=== PATIENT | male | born 1950 | race Two or more races ===

== ENCOUNTER 2024-08-29 08:51 | Observation (INO) | payer MEDICARE, MEDICAID, SELFPAY ==
[2024-08-29] VITALS (11 sets, daily range): BP systolic 142–179; BP diastolic 50–81; PULSE 37–75; RESP 12–96; TEMP 36.1–36.6; O2SAT 93–100; BMI 20.7
--- NOTE | 2024-08-29 09:10 | EKG_ITS ---
[facility] (Formerly [facility]) Test Date: 2024-08-29 Pat Name: ABRAHAM ANN Department: Room: - Gender: Male Client Sales And Service Officer: : 1950 Requested By: Jeyson Riley Order Number: [id number] Reading MD: Jeyson Riley Measurements Intervals [place] Rate: 37 P: NC: QRS: 95 QRSD: 118 T: 34 QT: 504 QTc: 396 Interpretive Statements SINUS BRADYCARDIA WITH 2ND DEGREE AV BLOCK, MOBITZ TYPE II BORDERLINE RIGHT AXIS DEVIATION [QRS AXIS > 90] POSSIBLE INFERIOR MYOCARDIAL INFARCTION , PROBABLY OLD [30 ms Q WAVE IN II/aVF] Compared to ECG 05/16/2024 09:49:22 Myocardial infarct finding now present Sinus rhythm no longer present First degree AV block no longer present Right bundle-branch block no longer present Left posterior fascicular block no longer present T-wave abnormality no longer present Possible ischemia no longer present /store/S0/[id number]/ecg/[id number].pdf
--- NOTE | 2024-08-29 09:30 | PD.EDADULT ---
ED General RME/HPI General Chief complaint: General Adult/Misc Complain Stated complaint: WEAKNESS Time Seen by Provider: 08/29/24 09:06 Arrival date/time: 08/29/24 08:51 RME / HPI RME / HPI narrative: Patient i a 74 year old m alexy, hx ESRD on dialysis, rpeorts to ED BIBA from dialysis as staff stated he that during dialysis patient was severely bradycardic without symptoms, patient continues to have no current complaints. States he used to see cutting machine offbearer but has not seen in many years. States he is legally blind. Denies chest pain or shortness of breath. Denies fevers, chills, nausea,vomiting, diarrhea, constipation. Related Data Home Medications ?Medication ?Instructions ?Recorded ?Confirmed glipizide 10 mg tablet 10 mg PO BID ##180 10/30/17 01/17/21 midodrine 10 mg tablet 10 mg PO QID ##180 10/30/17 04/05/24 atorvastatin 10 mg tablet 10 mg PO HS 11/17/18 01/17/21 cholecalciferol (vitamin D3) 25 1,000 unit PO QDAY 11/17/18 01/17/21 mcg (1,000 unit) capsule (Vitamin D3) gabapentin 100 mg capsule 100 mg PO BID 08/06/19 04/05/24 sevelamer carbonate 800 mg tablet 1,600 mg PO TID 02/24/20 04/05/24 (Renvela) cetirizine 10 mg tablet 10 mg PO QDAY PRN Allergic Symptoms 01/17/21 01/17/21 hydroxyzine HCl 25 mg tablet 25 mg PO HSPRN PRN Itching 01/17/21 01/17/21 insulin detemir U-100 100 unit/mL See Rx Instructions .Route .COMPLEX 01/17/21 01/17/21 (3 mL) subcutaneous pen (Levemir FlexTouch U-100 Insulin) lactulose 10 gram/15 mL oral 20 ml PO TID 01/17/21 04/05/24 solution (Constulose) ondansetron HCl 4 mg tablet 4 mg PO BID PRN Nausea 01/17/21 01/17/21 pantoprazole 40 mg tablet,delayed 40 mg PO QDAY 01/17/21 01/17/21 release ropinirole 1 mg tablet 2 mg PO BID 01/17/21 04/05/24 semaglutide 0.25 mg or 0.5 mg (2 0.5 mg subcut QWEEK 01/17/21 01/17/21 mg/1.5 mL) subcutaneous pen injector ([place]) montelukast 10 mg tablet 10 mg PO DAILY 04/05/24 04/05/24 sitagliptin phosphate 50 mg tablet 50 mg PO DAILY 04/05/24 04/05/24 (Januvia) sitagliptin phosphate 50 mg tablet mg 04/05/24 (Sepuvia) Previous Rx's ?Medication ?Instructions ?Recorded clopidogrel 75 mg tablet (Plavix) 75 mg PO QDAY #30 tabs 01/19/21 Allergies Allergy/AdvReac Type Severity Reaction Status Date / Time diphenhydramine Allergy Mild ANXIETY Verified 08/29/24 09:13 Review of Systems Review of Systems Narrative Review of Systems: Gen: No fever, no chills, no weight loss EYES: No discharge, no visual changes, no pain HEENT: No ear pain, no congestion, no sore throat PULM: No shortness of breath, no cough, no congestion CV: No chest pain, no dyspnea on exertion, no palpitations GI: No nausea, no vomiting, no diarrhea, no pain, no constipation : No frequency, no urgency, no dysuria Musc/skel: No joint pain, no back pain Skin: No rash Psyc: No hallucinations, no depression Heme/Lymph: No easy bleeding or bruising tendencies Neuro: No weakness, no headache Past Medical History Past Medical History NEUROLOGIC: Negative Neurological Disorders CARDIAC: Positive Cardiac Disorders, Hypercholesterolemia, Hypertension and Hypotension; Negative Congestive Heart Failure RESPIRATORY: Positive Pneumonia (at 20 yrs ago); Negative Chronic Obstructive Pulmonary Disease (COPD) GASTROINTESTINAL: Positive Gastrointestinal Disorders and Gastroesophageal Reflux Disease; Negative Hepatitis GENITOURINARY: Positive Genitourinary Disorders, Renal Disease, Kidney Stones and Dialysis MUSCULOSKELETAL: Positive Musculoskeletal Disorders, Arthritis, Degenerative Disk Disease and Degenerative Joint Disease ENT: Positive Blind (right eye, left eye only can see 15%) and Deafness ([place] g[place].) ENDOCRINE: Positive Endocrine Disorders, Diabetes Mellitus Type 2 and Hypothyroidism; Negative Diabetes Mellitus Type 1 HEMATOLOGIC: Negative Blood Disorders PSYCHO/SOCIAL: Positive Anxiety OTHER HISTORY: Positive Hospitalization and Falls; Negative Autoimmune Disease, MRSA, Chicken Pox or Cancer Family History FAMILY HISTORY: Positive Family Cancer (dad colon ca) and Family Surgery; Negative Family Psychiatric Problems, Family Respiratory Disorders, Family Cardiac Disorders, Family Gastrointestinal Problems or Family Anesthesia Reaction Surgical History SURGICAL: Positive Amputation (left 5th toe) Social History SMOKING STATUS: Never smoker SUBSTANCE USE: does not use ED Exam Narrative Physical exam: GEN. APPEARANCE: The patient is alert awake oriented X-3 in mild distress, lying down comfortably, does not look ill/toxic. Patient has good eye contact. Patient is cooperative. VITALS: All vitals were reviewed and the pulse ox is 98% on room air which is normal according to my interpretation. HEENT: Normocephalic, atraumatic. Pupils are equal and reactive. Oral mucosa is moist. Patent Nares NECK: Supple, nontender, no thyromegaly, no meningismus, no JVD, no step offs CHEST: Dialysis access port left chest. Symmetrical, atraumatic, and with equal expansion , Nontender on palpation no deformity and no crepitus. CARDIOVASCULAR:Bradycardic in mid 30's LUNGS: Clear to auscultation bilaterally with symmetrical chest rise. No laboring tachypnea or wheezing. No intercostal subcostal retraction. No rales and no rhonchi. ABDOMEN: Soft, flat, nontender to palpation, no guarding or rebound tenderness. There are no abnormal masses palpated. Active and normal bowel sounds. EXTREMITIES: Nontender. No edema. No cyanosis. Patient is able to move all 4 extremities well, with full ROM and good CSM. SKIN: Warm and dry, no jaundice or rashes noted. MUSCULOSKELETAL: No lubar or midline bony tenderness. There is no CVA tenderness. No paraspinal muscle spasm or tenderness. NEURO: Patient is WORKMAN x 4, Cranial nerves II through XII grossly intact. There is no focal neurologic deficits noted. GCS is 15, PNS and CRYSTAL CUTTER appear grossly intact. PSYCHIATRIC: Patient is in normal mood and affect, cooperative, no SI or HI or hallucinations. Course Quality Measures none Orders Category Date Time Status COVID-19 Screening Questionnaire NOW Care 08/29/24 13:07 Active Credit Product Analyst Q4H START 00 Care 08/29/24 09:10 Active Decision to Admit X1 Care 08/29/24 13:07 Active EKG (ED ONLY) *Do not use* NOW Care 08/29/24 09:11 Completed EKG (ED Only) Stat Exams 08/29/24 09:10 Draft CBC Stat Lab 08/29/24 09:37 Completed Comprehensive Metabolic Panel Stat Lab 08/29/24 09:37 Completed Free T4 (Free Thyroxine) Stat Lab 08/29/24 09:37 Completed Magnesium Stat Lab 08/29/24 09:37 Completed Partial Thromboplastin Time Stat Lab 08/29/24 09:37 Completed Prothrombin Time with INR Stat Lab 08/29/24 09:37 Completed TSH [Thyroid Stimulating Hormone] Stat Lab 08/29/24 09:37 Completed Vital Signs Vital signs: Vital Signs Temperature 97.5 F 08/29/24 09:11 Pulse Rate 41 L 08/29/24 09:11 Respiratory Rate 16 08/29/24 09:11 Blood Pressure 143/56 H 08/29/24 09:11 Pulse Oximetry (%) 98 08/29/24 09:11 Oxygen Delivery Method Room Air 08/29/24 09:[address] [facility] Patient data External records reviewed:: [facility] previous records Clinical information provided by:: patient Social determinants that could affect healthcare access:: none Patient has the following chronic illnesses:: ESRD, diabetes, hypertension How is presenting disease/condition affected by chronic disease/condition?: uneffected by Evaluation data The following diagnostics were reviewed and interpreted by me:: lab results and EKG tracing(s) (moves in and out of bradycardia) Lab and/or radiology exams considered but not ordered:: none Interpretation Summary: see above Medications Medications considered but not ordered:: none Medication administrations:: Medication Administration History Acetaminophen (Acetaminophen 325 Mg Tablet) 650 mg PO Q6H PRN PRN Reason: Pain and Fever >101.5 Stop: 09/28/24 13:14 Atorvastatin Calcium (Atorvastatin Calcium 10 Mg Tablet) 10 mg PO HS FRAN Stop: 09/28/24 20:59 Dextrose (Dextrose 50%-Water Inj 50 Ml Syringe) 25 ml IV Q15MIN PRN PRN Reason: BG 50-70 responsive npo pt Stop: 09/28/24 13:19 Dextrose (Dextrose 50%-Water Inj 50 Ml Syringe) 50 ml IV Q15MIN PRN PRN Reason: BG <50 OR BG <70 & pt unresponsive Stop: 09/28/24 13:19 Glucagon (Glucagon Inj 1 Mg Vial) 1 mg IM Q15MIN PRN PRN Reason: BG <70, and no IV access Hydralazine HCl (Hydralazine Inj 20 Mg/Ml Vial) 10 mg IVP Q6H PRN PRN Reason: HTN SBP >180, DBP> 100 Stop: 09/28/24 13:29 Insulin Glargine (Insulin Glargine (Lantus) 5 Unit/0.05 Ml (Per 5 Units)) 55 unit SC BID FRAN Stop: 09/28/24 20:59 Insulin Human Lispro (Insulin Lispro (Admelog) 1 Unit/0.01 Ml Unit) 0 unit SC ACHS FRAN; Protocol Stop: 09/28/24 16:59 Ondansetron HCl (Ondansetron Inj 2 Mg/Ml Inj 2 Ml) 4 mg IV Q6H PRN; Protocol PRN Reason: NAUSEA OR VOMITING Stop: 09/28/24 13:14 Pantoprazole Sodium (Pantoprazole 40 Mg Tablet) 40 mg PO QDAY FRAN Stop: 09/29/24 08:59 Sennosides (Senna Tablet) 1 tab PO QDAY FRAN; Protocol Stop: 09/28/24 13:29 Sevelamer Carbonate (Sevelamer Carbonate 800 Mg Tablet) 800 mg PO TIDWM FRAN Stop: 09/28/24 17:29 none Consultations Consultation(s) initiated? (list below): Yes Consultation #1 (Physician, Specialty, Details): Consulted cutting machine offbearer Dr. Perez regarding the patients current status and results, agrees to consult on patients further care. Time: 11:22 Consultation #2 (Physician, Specialty, Details): Discussed with hospitalist Dr. Sanchez regarding the patients current status and results, agrees to admission Time: 11:44 Diagnosis Differential Diagnosis ED Complaint MDM: bradycardia. hypotyroidism, medical screening Most likely diagnosis given after review of the tests above:: mobitz 2, bradycardia, ESRD on dialysis Admission Indicated Admission indicated?: indicated Explain why admission is indicated or not indicated:: see above Admission Request Was there a request for admission?: Yes Admission Attestation Admission request attestation: Discussed case with [] from Hospitalist service regarding admission. Discussed patients ED course, exam findings, labs, and radiology results. The Hospitalist [agrees,declines] to accept the patient for admission. Disposition Plan Disposition Plan: Admit Medical Decision Making Differential Diagnosis Differential Diagnosis: bradycardia. hypotyroidism, medical screening Lab Data 08/29/24 09:37 08/29/24 09:37 Labs: Lab Results 08/29/24 Range/Units 09:37 WBC 6.5 (3.8-10.6) Thou/mm3 RBC 3.83 L (4.50-5.90) Miln/mm3 Hgb 11.5 L (13.5-16.0) g/dL Hct 35.5 L (41.0-53.0) % MCV 93 (80-100) fL MCH 30.0 (25.0-35.0) pg MCHC 32.4 (31.0-37.0) g/dl RDW Std Deviation 47.3 H (35.1-43.9) fL Plt Count 180 (140-440) Thou/mm3 Neut % (Auto) 50 (37-80) % Lymph % (Auto) 37 (10-50) % [place] % (Auto) 8 (0-12) % Eos % (Auto) 4 (0-10) % Baso % (Auto) 1 (0-2.5) % Neut # (Auto) 3.2 (1.8-7.7) Thou/mm3 Lymph # (Auto) 2.4 (1.0-4.8) Thou/mm3 [place] # (Auto) 0.5 (0.0-0.8) Thou/mm3 Eos # (Auto) 0.2 (0.0-0.5) Thou/mm3 Baso # (Auto) 0.0 (0.0-0.2) Thou/mm3 Immature Gran # (Auto) 0.03 H (0.00-0.00) Thou/mm3 Absolute Nucleated RBC 0.00 (0.00-0.00) Thou/mm3 Immature Gran % 1 H (0-0) % Nucleated RBC % 0 (0) /100 WBC PT 12.5 H (9.0-12.2) Seconds INR 1.2 (0.9-1.3) APTT > 139.0 H* (22.0-36.0) Seconds Sodium 137 (136-145) mMol/L Potassium 3.3 L (3.4-5.1) mMol/L Chloride 101 (98-107) mMol/L Carbon Dioxide 28.5 (20.0-31.0) mMol/L Anion Gap 8 (7-16) BUN 8 L (9-23) mg/dL Creatinine 2.4 H (0.6-1.3) mg/dL Estim Creat Clear Calc 22.3 L (>60) mL/min eGFR 28 L (60 - ) See Note BUN/Creatinine Ratio 3 L (12-20) Ratio Glucose 112 H (74-106) mg/dL Calculated Osmolality 273 L (275-295) Calcium 10.0 (8.3-10.6) mg/dL Corrected Calcium 10.0 (8.5-10.1) mg/dL Magnesium 2.0 (1.6-2.6) mg/dL Total Bilirubin 0.4 (0.3-1.2) mg/dL AST 27 (0-34) U/L ALT 42 (10-49) U/L Alkaline Phosphatase 181 H (46-116) U/L Total Protein 7.6 (5.7-8.2) gm/dL Albumin 4.5 (3.4-4.8) gm/dL Globulin 3.1 (2.3-3.5) gm/dL Albumin/Globulin Ratio 1.5 (1.2-2.2) TSH 14.65 H (0.55-4.78) uIU/mL Free T4 1.22 (0.89-1.76) ng/dL Discharge Plan Plan Patient Disposition: Admit Acute Care w/in Hospital Patient condition on transfer: Stable Problem List Clinical Impression: Bradycardia, ESRD (end stage renal disease)
[2024-08-29 10:09] LABS: Basophils % (Auto) 1 % (0-2.5); Eosinophils # (Auto) 0.2 Thou/mm3 (0.0-0.5); Eosinophils % (Auto) 4 % (0-10); Hematocrit 35.5 % (41.0-53.0); Hemoglobin 11.5 g/dL (13.5-16.0); Immature Granulocytes % (Auto) 1 % (0-0); Immature Granulocytes Auto 0.03 Thou/mm3 (0.00-0.00); Lymphocytes # (Auto) 2.4 Thou/mm3 (1.0-4.8); Lymphocytes % (Auto) 37 % (10-50); Mean Corpuscular HGB Conc 32.4 g/dl (31.0-37.0); Mean Corpuscular Volume 93 fL (80-100); Monocytes # (Auto) 0.5 Thou/mm3 (0.0-0.8); Monocytes % (Auto) 8 % (0-12); Neutrophils # (Auto) 3.2 Thou/mm3 (1.8-7.7); Neutrophils % (Auto) 50 % (37-80); Nucleated Red Blood Cell % 0 /100 WBC (0); Platelet Count 180 Thou/mm3 (140-440); RDW Standard Deviation 47.3 fL (35.1-43.9); Red Blood Count 3.83 Miln/mm3 (4.50-5.90); White Blood Count 6.5 Thou/mm3 (3.8-10.6)
[2024-08-29 10:18] LABS: Alanine Aminotransferase 42 U/L (10-49); Albumin, Serum 4.5 gm/dL (3.4-4.8); Albumin/Globulin Ratio 1.5 (1.2-2.2); Alkaline Phosphatase 181 U/L (46-116); Anion Gap 8 (7-16); Aspartate Amino Transferase 27 U/L (0-34); BUN/Creatinine Ratio 3 Ratio (12-20); Bilirubin,Total 0.4 mg/dL (0.3-1.2); Blood Urea Nitrogen 8 mg/dL (9-23); Carbon Dioxide 28.5 mMol/L (20.0-31.0); Chloride 101 mMol/L (98-107); Creatinine (Component) 2.4 mg/dL (0.6-1.3); Estimated Creatinine Clearance 22.3 mL/min (>60); Globulin 3.1 gm/dL (2.3-3.5); Glucose 112 mg/dL (74-106); Osmolality,Calculated 273 (275-295); Potassium 3.3 mMol/L (3.4-5.1); Sodium 137 mMol/L (136-145); Thyroid Stimulating Hormone 14.65 uIU/mL (0.55-4.78); Total Protein 7.6 gm/dL (5.7-8.2); eGFR 28 See Note
[2024-08-29 10:39] LABS: INR 1.2 (0.9-1.3); Prothrombin Time 12.5 Seconds (9.0-12.2)
[2024-08-29 10:44] LABS: Partial Thromboplastin Time > 139.0 Seconds (22.0-36.0)
[2024-08-29 13:52] LABS: Free T4 (Free Thyroxine) 1.22 ng/dL (0.89-1.76)
--- NOTE | 2024-08-29 14:01 | ESHP_ITS ---
<Statement entered by Vivian Pardo DO - 08/29/24 21:23> Senior attestation: Patient was examined and case was reviewed with team including attending physician. Note reviewed, I agree with most of its contents and agree with the patient's care. Patient is a 74 year old male with history of ESRD on HD (followed by Dr. Chand), hypertension, CAD, T2DM, and diabetic nephropathy/neuropathy/retinopathy who presented to the ED with concerns of asymptomatic bradycardia during dialysis session, events similar to an admission during summer. On EKG in ED, was found to have heart rate of 37, but denies any symptoms. Patient's continuous improvement consultant Dr. Orantes was consulted, advised admitting, repeating EKG, and ordering free T4 and initiating IV levothyroxine as indicated. TSH found to be 14.65, will order free T4. Will add hydralazine for BP > 180. Pending cardiology recommendations. Vivian Pardo DO PGY-3 Documentation for date of: 08/29/24 HPI History of Present Illness Chief complaint: Bradycardia History of present illness: Mr. Benoit is a 74-year-old male with past medical history of end-stage renal disease on dialysis, hypertension, coronary artery disease, type 2 diabetes mellitus, diabetic nephropathy/neuropathy and diabetic retinopathy who presented to [facility] for the chief complaint of bradycardia. According to the patient he was undergoing dialysis treatment when he was informed that his heart rate is in low 30s and was advised to go to the emergency department. Patient denies any dizziness, lightheadedness currently, according to patient he was not able to complete his dialysis treatment due to bradycardia. Patient otherwise denies any chest pain, shortness of breath and headache. Of note patient was previously admitted to the facility for similar episode of bradycardia during dialysis and March and Dr. Orantes was consulted. Patient did not follow-up with Dr. Orantes outpatient. Patient does report he was recently admitted to [facility] for colonoscopy, patient did report he had episodes of hallucination which was the primary reason for his admission to [facility]. ED Course: ED Vitals: ED vitals significant for BP 143/5 6, P41, RR 16, temp 97.5, O2 sat 98 on room air ED Labs: ED labs significant for RBC 3.83, hemoglobin 11.5, hematocrit 35.5, APTT more than 139, PT 12.5, potassium 3.3, BUN 8, creatinine 2.4, GFR 28, glucose 112, BUN 3, osmolality 273, alk phos 181, TSH 14.65, free T41.22 ED Imaging: EKG in ED shows sinus bradycardia with rate of 37 and possible Mobitz type II block ED Treatment: Dr. Perez was consulted in ED, eventually Dr. Orantes was consulted for asymptomatic sinus bradycardia Review of Systems Review of Systems Narrative Review of Systems: ROS: -CONSTITUTIONAL: Denies weight loss, fever and chills. -HEENT: Denies changes in hearing. Legally blind. -RESPIRATORY: Denies SOB and cough. -CV: Denies palpitations and Chest Pain. -GI: Denies abdominal pain, nausea, vomiting,constipation and diarrhea. -: Denies dysuria and urinary frequency. -MSK: Denies myalgia and joint pain. -SKIN: Denies rash and pruritus. -NEUROLOGICAL: Denies headache and syncope. -PSYCHIATRIC: Denies recent changes in mood. Denies anxiety and depression. 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 Conversational and non-toxic appearing. HEENT: Normocephalic, atraumatic, mucous membranes moist. 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 Heart: Bradycardia noted and rhythm, no murmurs. Lungs: Clear to auscultation with no wheezing. Bibasilar crackles noted Abdomen: Soft, nondistended, nontender, positive bowel sounds. ?No guarding or rebound tenderness. Neurologic: Alert and oriented x3, no gross neurological deficit, and patient able to move all 4 extremities. Extremities: No edema. Skin: No rash or ecchymoses. Results: Labs 08/30/24 06:13 08/30/24 06:13 Labs: Short CBC 08/29/24 Range/Units 09:37 WBC 6.5 (3.8-10.6) Thou/mm3 Hgb 11.5 L (13.5-16.0) g/dL Hct 35.5 L (41.0-53.0) % Plt Count 180 (140-440) Thou/mm3 BMP 08/29/24 09:37 Sodium 137 Potassium 3.3 L Chloride 101 Carbon Dioxide 28.5 BUN 8 L Creatinine 2.4 H Glucose 112 H Calcium 10.0 Liver Function 08/29/24 Range/Units 09:37 Total Bilirubin 0.4 (0.3-1.2) mg/dL AST 27 (0-34) U/L ALT 42 (10-49) U/L Alkaline Phosphatase 181 H (46-116) U/L Albumin 4.5 (3.4-4.8) gm/dL Quality Measures Quality Measures none Advance care planning discussed with:: patient and spouse Medications Home Medications and Allergies Home Medications ?Medication ?Instructions ?Recorded ?Confirmed ?Type glipizide 10 mg tablet 10 mg PO BID ##180 10/30/17 08/29/24 History midodrine 10 mg tablet 10 mg PO QID ##180 10/30/17 08/29/24 History atorvastatin 10 mg tablet 10 mg PO HS 11/17/18 08/29/24 History cholecalciferol (vitamin D3) 25 1,000 unit PO QDAY 11/17/18 08/29/24 History mcg (1,000 unit) capsule (Vitamin D3) gabapentin 100 mg capsule 100 mg PO BID 08/06/19 08/29/24 History sevelamer carbonate 800 mg tablet 1,600 mg PO TID 02/24/20 08/29/24 History (Renvela) cetirizine 10 mg tablet 10 mg PO QDAY PRN Allergic Symptoms 01/17/21 08/29/24 History hydroxyzine HCl 25 mg tablet 25 mg PO HSPRN PRN Itching 01/17/21 08/29/24 History insulin detemir U-100 100 unit/mL See Rx Instructions .Route .COMPLEX 01/17/21 08/29/24 History (3 mL) subcutaneous pen (Levemir FlexTouch U-100 Insulin) lactulose 10 gram/15 mL oral 20 ml PO TID 01/17/21 08/29/24 History solution (Constulose) ondansetron HCl 4 mg tablet 4 mg PO BID PRN Nausea 01/17/21 08/29/24 History pantoprazole 40 mg tablet,delayed 40 mg PO QDAY 01/17/21 08/29/24 History release ropinirole 1 mg tablet 2 mg PO BID 01/17/21 08/29/24 History semaglutide 0.25 mg or 0.5 mg (2 0.5 mg subcut QWEEK 01/17/21 08/29/24 History mg/1.5 mL) subcutaneous pen injector (Ozempic) montelukast 10 mg tablet 10 mg PO DAILY 04/05/24 08/29/24 History sitagliptin phosphate 50 mg tablet 50 mg PO DAILY 04/05/24 08/29/24 History (Januvia) Allergies Allergy/AdvReac Type Severity Reaction Status Date / Time diphenhydramine Allergy Mild ANXIETY Verified 08/29/24 09:13 Visit Medications Acetaminophen (Acetaminophen 325 Mg Tablet) 650 mg PO Q6H PRN PRN Reason: Pain and Fever >101.5 Stop: 09/28/24 13:14 Atorvastatin Calcium (Atorvastatin Calcium 10 Mg Tablet) 10 mg PO HS FRAN Stop: 09/28/24 20:59 Dextrose (Dextrose 50%-Water Inj 50 Ml Syringe) 25 ml IV Q15MIN PRN PRN Reason: BG 50-70 responsive npo pt Stop: 09/28/24 13:19 Dextrose (Dextrose 50%-Water Inj 50 Ml Syringe) 50 ml IV Q15MIN PRN PRN Reason: BG <50 OR BG <70 & pt unresponsive Stop: 09/28/24 13:19 Glucagon (Glucagon Inj 1 Mg Vial) 1 mg IM Q15MIN PRN PRN Reason: BG <70, and no IV access Hydralazine HCl (Hydralazine Inj 20 Mg/Ml Vial) 10 mg IVP Q6H PRN PRN Reason: HTN SBP >180, DBP> 100 Stop: 09/28/24 13:29 Insulin Glargine (Insulin Glargine (Lantus) 5 Unit/0.05 Ml (Per 5 Units)) 55 unit SC BID [facility] Stop: 09/28/24 20:59 Insulin Human Lispro (Insulin Lispro (Admelog) 1 Unit/0.01 Ml Unit) 0 unit SC ACHS FRAN; Protocol Stop: 09/28/24 16:59 Ondansetron HCl (Ondansetron Inj 2 Mg/Ml Inj 2 Ml) 4 mg IV Q6H PRN; Protocol PRN Reason: NAUSEA OR VOMITING Stop: 09/28/24 13:14 Pantoprazole Sodium (Pantoprazole 40 Mg Tablet) 40 mg PO QDAY [facility] Stop: 09/29/24 08:59 Sennosides (Senna Tablet) 1 tab PO QDAY FRAN; Protocol Stop: 09/28/24 13:29 Sevelamer Carbonate (Sevelamer Carbonate 800 Mg Tablet) 800 mg PO TIDWM [facility] Stop: 09/28/24 17:29 Assessment & Plan Plan Assessment and plan: Summary: Mr. Benoit is a 74-year-old male with past medical history of end-stage renal disease on dialysis, hypertension, coronary artery disease, type 2 diabetes mellitus, diabetic nephropathy/neuropathy and diabetic retinopathy who presented to [facility] for the chief complaint of bradycardia. Patient admitted for further workup. # Asymptomatic sinus bradycardia -Patient was receiving dialysis this morning, when his heart rate was noted to be in 30s. Patient brought in by ambulance to ER for further workup. -Patient was recently admitted to [facility] for similar complaints in March, had full workup done by cardiology, per cardiology recommended no pacemaker was recommended and patient was advised to not be on any beta-blockers, calcium channel blockers are any medications causing tachycardia. Per continuous improvement consultant patient is a good candidate forLeadless pacemaker-Micra -Echo from March shows normal LV size and function. Estimated EF 55-60%. Normal RV size and function. Mild MAC. Trace MR. Moderate AV sclerosis without stneosis. -EKG in ED shows sinus bradycardia with rate of 37 and possible Mobitz type II block Plan: -Will monitor patient for dizziness and lightheadedness -Will continue telemonitoring -Will consider atropine if patient has symptomatic bradycardia -Consider IV dopamine if patient has symptomatic bradycardia with no resolution from atropine -Consulted cardiology, appreciate recommendations -Will order repeat EKG -TSH 14.65, free T4 1.22, patient has no other symptoms of hypothyroidism. -Follow CBC CMP in a.m. -Follow coagulation panel in a.m. 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 Sanchez and Dr. Pardo PGY3. Minoo Altman PGY1 Attending Provider Attestation/Addendum 73-year-old male with multiple comorbidities including hypertension, hyperlipidemia and type 2 diabetes mellitus with subsequent end-stage renal disease on hemodialysis Saturday, and Saturday who was undergoing his routine hemodialysis session when all of a sudden started becoming bradycardic with heart rate in the 30s and subsequently hemodialysis was discontinued and sent to the ER. In the ER, patient was noted to have heart rate in the 40s with EKG significant for complete heart block and thus cardiology was consulted who recommended patient being admitted for possible pacemaker placement. Patient denies being on beta-blockers, calcium channel blockers or eyedrops. As a result, plan to admit the patient and monitor closely. I reviewed above note and agree with findings and plans. I have also personally examined the patient with medicine team and went over assessment and plan with medical team including legal internship and resident physician.
[2024-08-29] MEDS: SEVELAMER CARBONATE 800 MG TABLET PO (17:05)
--- NOTE | 2024-08-29 18:49 | PD.RESEVENT ---
Documentation for date of: 08/29/24 Event Note Event Note: Patient had rapid response called around 4:30 PM for asymptomatic bradycardia, patient's heart rate in lower 30s, patient denies any symptoms, discussed with nursing about patient's heart rate being in the 30s since admission and cardiology is aware, requested to inform MD if patient has heart rate less than 30 and lightheadedness, dizziness or other symptoms with bradycardia. Physical exam benign, patient stable, patient's blood pressure around 170/80, vital stable, patient & oriented x 3. Case discussed with Attending Dr. Sanchez and Dr. Pardo PGY3. Minoo Altman PGY1
[2024-08-29] MEDS: ATORVASTATIN CALCIUM 10 MG TABLET PO (20:02)
--- NOTE | 2024-08-29 21:50 | PD.IMCONS ---
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 Patient has scars from previous right tunneled dialysis catheter 2, patient hypertension, hyperlipidemia, type 2 diabetes mellitus on insulin, with diabetic neuropathy retinopathy as well as nephropathy. 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 Patient had a similar presentation in March 2024 when he was seen by me and telemetry at the time including an EKG did show the patient did have intermittent complete heart block and occasional second-degree AV block Mobitz type II. Patient had a good ventricular escape rhythm with excellent blood pressure during the entire admission and he was completely asymptomatic at that point of time. He was also noted to have intermittent and transient alternating left and right bundle branch block at baseline patient also is bedbound at baseline. Patient also had issues with venous access as we cannot use the left subclavian vein access as he is a tunneled dialysis catheter in place and he is has significant amount of scar in the right upper chest and would not be a good access site. No pacemaker was recommended and patient was discharged to home and recommended to avoid beta-blockers along with calcium channel blockers and Aricept all of which could decrease his heart rate. Will also hyperkalemia and acidosis which could also cause significant bradycardia. TSH was slightly elevated at 8.4 at that point of time but free T4 also low at 0.84 and was not started on any thyroid medication. Patient was recommended to follow-up with cardiology office but he never followed up because of transport issues and also patient did not have any recurrent admissions since then. If patient is having symptomatic bradycardia with significant high degree AV block then the plan was to consider him for possible Micra leadless pacemaker Patient was again sent back from the dialysis with low heart rate and again patient denies any kind of cardiac complaints including chest pain chest pressure shortness of breath orthopnea or PND or dizziness or syncope or fall. Patient at baseline does not walk. Patient denies any current fever or chills. Patient denies any cardiac symptoms at the present point of time. EKG from the emergency department shows second-degree AV block Mobitz type II labs from today showed hemoglobin of 11.5, platelets of 120 and WBC of 6.5 INR was 1.2 with PTT was elevated at 139 potassium was low at 3.3 but patient was postdialysis. BUN of 90 and creatinine was 2.4. TSH was elevated at 14.65 but no free T4 noted from today and previous free T4 was 0.82. Cardiology was consulted for further evaluation of the severe bradycardia. Past medical history: As noted above. Past surgical history: Patient with history of AV fistula on the right arm which is completely clotted and multiple permacath placement on the left side as well as right-sided dialysis catheters Family history: Hypertension as well as diabetes Social history: Lives here with the and denies any kind of alcohol tobacco or drug use. Patient is legally blind in the right eye and used to work in the [employer]. Allergies: NKDA Travel history: None recently cc:: cc: Eder Sanchez MD Review of Systems Review of Systems Narrative Review of Systems: All other systems apart from HPI were reviewed and are negative. 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 -Education Level: Elementary school -Martial Status: , lives with Family History: Denies any pertinent family history Meds Home Medications and Allergies Home Medications ?Medication ?Instructions ?Recorded ?Confirmed ?Type glipizide 10 mg tablet 10 mg PO BID ##180 10/30/17 08/29/24 History midodrine 10 mg tablet 10 mg PO QID ##180 10/30/17 08/29/24 History atorvastatin 10 mg tablet 10 mg PO HS 11/17/18 08/29/24 History cholecalciferol (vitamin D3) 25 1,000 unit PO QDAY 11/17/18 08/29/24 History mcg (1,000 unit) capsule (Vitamin D3) gabapentin 100 mg capsule 100 mg PO BID 08/06/19 08/29/24 History sevelamer carbonate 800 mg tablet 1,600 mg PO TID 02/24/20 08/29/24 History (Renvela) cetirizine 10 mg tablet 10 mg PO QDAY PRN Allergic Symptoms 01/17/21 08/29/24 History hydroxyzine HCl 25 mg tablet 25 mg PO HSPRN PRN Itching 01/17/21 08/29/24 History insulin detemir U-100 100 unit/mL See Rx Instructions .Route .COMPLEX 01/17/21 08/29/24 History (3 mL) subcutaneous pen (Levemir FlexTouch U-100 Insulin) lactulose 10 gram/15 mL oral 20 ml PO TID 01/17/21 08/29/24 History solution (Constulose) ondansetron HCl 4 mg tablet 4 mg PO BID PRN Nausea 01/17/21 08/29/24 History pantoprazole 40 mg tablet,delayed 40 mg PO QDAY 01/17/21 08/29/24 History release ropinirole 1 mg tablet 2 mg PO BID 01/17/21 08/29/24 History semaglutide 0.25 mg or 0.5 mg (2 0.5 mg subcut QWEEK 01/17/21 08/29/24 History mg/1.5 mL) subcutaneous pen injector (Ozempic) montelukast 10 mg tablet 10 mg PO DAILY 04/05/24 08/29/24 History sitagliptin phosphate 50 mg tablet 50 mg PO DAILY 04/05/24 08/29/24 History (Januvia) Allergies Allergy/AdvReac Type Severity Reaction Status Date / Time diphenhydramine Allergy Mild ANXIETY Verified 08/29/24 09:13 Exam Vital Signs Temp Pulse Resp BP Pulse Ox O2 Del Method 97.3 F 48 L 18 156/54 H 100 Room Air 08/29/24 20:00 08/29/24 20:00 08/29/24 20:00 08/29/24 20:00 08/29/24 20:00 08/29/24 20:00 Narrative Exam General: Alert and oriented x3. In no acute distress. Eyes: Legally blind right eye. Extraocular movements intact in the left eye HEENT: Atraumatic, normocephalic. No JVD noted. Mucosa moist. Cardiovascular: Normal S1 and S2. Normal rate and regular rhythm. 3 or 6 systolic murmur heard in the apex as well as the right parasternal border. Trace peripheral pitting edema noted. Chest shows significant scars with previous tunneled dialysis catheter placements on the right chest. The left chest has tunneled dialysis catheter in place Left AV graft fistula noted without. Respiratory: No respiratory distress. Lungs are clear to auscultation bilaterally but decreased at the bases. No wheezing or crackles heard. Abdomen: Soft, nontender, nondistended. Skin: No rash. Warm to touch. Musculoskeletal: No gross injuries. Able to move all 4 extremities. Neuro: Alert and oriented x3. No focal neuro deficits. Psych: Normal affect and mood Results Labs 08/29/24 09:37 08/29/24 09:37 Labs: Short CBC 08/29/24 Range/Units 09:37 WBC 6.5 (3.8-10.6) Thou/mm3 Hgb 11.5 L (13.5-16.0) g/dL Hct 35.5 L (41.0-53.0) % Plt Count 180 (140-440) Thou/mm3 BMP 08/29/24 09:37 Sodium 137 Potassium 3.3 L Chloride 101 Carbon Dioxide 28.5 BUN 8 L Creatinine 2.4 H Glucose 112 H Calcium 10.0 Liver Function 08/29/24 Range/Units 09:37 Total Bilirubin 0.4 (0.3-1.2) mg/dL AST 27 (0-34) U/L ALT 42 (10-49) U/L Alkaline Phosphatase 181 H (46-116) U/L Albumin 4.5 (3.4-4.8) gm/dL Assessment and Plan Additional Assessment & Plan Additional Plan: A 73-year-old male with a past medical history of 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 Patient has scars from previous right tunneled dialysis catheter 2, patient hypertension, hyperlipidemia, type 2 diabetes mellitus on insulin, with diabetic neuropathy retinopathy as well as nephropathy. 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 Patient had a similar presentation in March 2024 when he was seen by me and telemetry at the time including an EKG did show the patient did have intermittent complete heart block and occasional second-degree AV block Mobitz type II. Patient had a good ventricular escape rhythm with excellent blood pressure during the entire admission and he was completely asymptomatic at that point of time. He was also noted to have intermittent and transient alternating left and right bundle branch block at baseline patient also is bedbound at baseline. Patient also had issues with venous access as we cannot use the left subclavian vein access as he is a tunneled dialysis catheter in place and he is has significant amount of scar in the right upper chest and would not be a good access site. No pacemaker was recommended and patient was discharged to home and recommended to avoid beta-blockers along with calcium channel blockers and Aricept all of which could decrease his heart rate. Will also hyperkalemia and acidosis which could also cause significant bradycardia. TSH was slightly elevated at 8.4 at that point of time but free T4 also low at 0.84 and was not started on any thyroid medication. Patient was recommended to follow-up with cardiology office but he never followed up because of transport issues and also patient did not have any recurrent admissions since then. If patient is having symptomatic bradycardia with significant high degree AV block then the plan was to consider him for possible Micra leadless pacemaker Patient was again sent back from the dialysis with low heart rate and again patient denies any kind of cardiac complaints including chest pain chest pressure shortness of breath orthopnea or PND or dizziness or syncope or fall. Patient at baseline does not walk. Patient denies any current fever or chills. Patient denies any cardiac symptoms at the present point of time. EKG from the emergency department shows second-degree AV block Mobitz type II labs from today showed hemoglobin of 11.5, platelets of 120 and WBC of 6.5 INR was 1.2 with PTT was elevated at 139 potassium was low at 3.3 but patient was postdialysis. BUN of 90 and creatinine was 2.4. TSH was elevated at 14.65 but no free T4 noted from today and previous free T4 was 0.82. Cardiology was consulted for further evaluation of the severe bradycardia. 1. Asymptomatic severe bradycardia. 2. Intermittent high degree AV block Mobitz type II as well as complete heart block 3. 3. End-stage renal disease on hemodialysis 4. Essential hypertension 5. Hypothyroidism-abnormally elevated TSH. 6. Diabetic neuropathy 7. Diabetic retinopathy-right eye completely benign 8. Diabetic nephropathy 9. Hyperlipidemia 10. GERD 11. Restless leg syndrome 12. Left tunneled dialysis catheter in place. Patient is severe bradycardia with heart rate from 35 to 45 bpm on arrival from the dialysis center. Patient is completely asymptomatic as noted above. Patient denies any kind of dizziness syncope or fall or tiredness or fatigue. Overall patient feels fine. His blood pressure has been stable with systolic around 150-170 mmHg. Patient is also asymptomatic at home as per the . EKG shows high degree AV block Mobitz type II. Telemetry reviewed and patient does have transient intermittent complete heart block but has a good medical or escape rhythm at the present point of time and his heart rate does improve up to 70 bpm indicating preserved chronotropic response. Recent echo from March 2040 was reviewed and it showed normal LV function, normal RV function. Mild aortic valve sclerosis without stenosis. Patient has completely asymptomatic bradycardia with intermittent complete heart block with intermittent second-degree AV block type II. He has a good escape rhythm at the present point of time ranging between 35 to 45 bpm with excellent blood pressure. Patient also is bedbound and does not walk and has some preserved chronotropic response. Patient does have issues with his venous access and we cannot use the left subclavian access as patient has a tunneled dialysis catheter in place. Examination of the right chest shows significant scars from previous tunneled dialysis catheters and now has left-sided tunneled dialysis catheter. Patient has history of AV fistula also. Patient overall has difficult venous access. There is no emergent indication for permanent pacemaker at the present point of time as patient is hemodynamically stable and patient is asymptomatic. If patient becomes symptomatic with the bradycardia and AV blocks then only patient should be considered for pacemaker placement possibly leadless pacemaker Micra which has to be performed at that tertiary care center mostly [facility]. Overnight the patient is bradycardia and symptomatic which is very unlikely - can consider dopamine drip and external pacing if needed. Review of the labs showed that the patient's TSH is elevated 14.65 and previous was 8.64. Last free T4 was low at 0.82. Recommend to check the free T4 level for now again. Recommend to consider at least low-dose levothyroxine for the patient recommended to discuss with endocrinology regarding the patient. Blood pressure is slightly high at the present moment and would recommend to keep the blood pressure systolic around 140-150 mmHg. Last time patient was recommended to be on hydralazine but it appears that he is on midodrine at the present point of time for the dialysis and would recommend to continue with midodrine and can do as needed IV hydralazine if the systolic blood pressure is greater than 190 mmHg. Management of rest of the medical conditions as per primary team and other consultants. Thank you for the consult and allowing me to participate in the care of the patient. Cardiology will continue to follow. Fuad Orantes M.D. Interventional Cardiology
[2024-08-30] VITALS (7 sets, daily range): BP systolic 118–151; BP diastolic 61–73; PULSE 42–79; RESP 15–94; TEMP 36.1–36.6; O2SAT 93–97; BMI 23.6
[2024-08-30 07:01] LABS: Basophils % (Auto) 1 % (0-2.5); Eosinophils # (Auto) 0.3 Thou/mm3 (0.0-0.5); Eosinophils % (Auto) 4 % (0-10); Hemoglobin 11.1 g/dL (13.5-16.0); Immature Granulocytes % (Auto) 0 % (0-0); Immature Granulocytes Auto 0.02 Thou/mm3 (0.00-0.00); Lymphocytes # (Auto) 2.3 Thou/mm3 (1.0-4.8); Lymphocytes % (Auto) 34 % (10-50); Mean Corpuscular HGB Conc 32.6 g/dl (31.0-37.0); Mean Corpuscular Hemoglobin 29.8 pg (25.0-35.0); Mean Corpuscular Volume 91 fL (80-100); Monocytes # (Auto) 0.5 Thou/mm3 (0.0-0.8); Monocytes % (Auto) 8 % (0-12); Neutrophils # (Auto) 3.5 Thou/mm3 (1.8-7.7); Neutrophils % (Auto) 53 % (37-80); Nucleated Red Blood Cell % 0 /100 WBC (0); Platelet Count 206 Thou/mm3 (140-440); RDW Standard Deviation 46.9 fL (35.1-43.9); Red Blood Count 3.72 Miln/mm3 (4.50-5.90); White Blood Count 6.6 Thou/mm3 (3.8-10.6)
[2024-08-30 07:18] LABS: INR 1.1 (0.9-1.3); Partial Thromboplastin Time 28.5 Seconds (22.0-36.0); Prothrombin Time 11.7 Seconds (9.0-12.2)
[2024-08-30 07:19] LABS: Alanine Aminotransferase 33 U/L (10-49); Albumin, Serum 4.3 gm/dL (3.4-4.8); Albumin/Globulin Ratio 1.4 (1.2-2.2); Alkaline Phosphatase 155 U/L (46-116); Anion Gap 9 (7-16); Aspartate Amino Transferase 21 U/L (0-34); BUN/Creatinine Ratio 4 Ratio (12-20); Bilirubin,Total 0.3 mg/dL (0.3-1.2); Blood Urea Nitrogen 16 mg/dL (9-23); Calcium 9.8 mg/dL (8.3-10.6); Calcium (Corrected) 9.8 mg/dL (8.5-10.1); Carbon Dioxide 28.7 mMol/L (20.0-31.0); Cardiac Risk Estimate 2.5 RATIO (4.0-6.7); Chloride 99 mMol/L (98-107); Cholesterol 123 mg/dL (132-200); Creatinine (Component) 3.7 mg/dL (0.6-1.3); Estimated Creatinine Clearance 15.7 mL/min (>60); Glucose 132 mg/dL (74-106); HDL Cholesterol 49 mg/dL (40-60); LDL Cholesterol,Calculated 49 mg/dL (0-130); Osmolality,Calculated 277 (275-295); Phosphorous 3.2 mg/dL (2.4-5.1); Potassium 4.2 mMol/L (3.4-5.1); Sodium 137 mMol/L (136-145); Total Protein 7.3 gm/dL (5.7-8.2); Triglycerides 123 mg/dL (30-150); eGFR 17 See Note
[2024-08-30 07:29] LABS: Glucose Estimated Average 123 mg/dL (80-131); Hemoglobin A1C 5.9 % Hgb (4.8-6.0)
[2024-08-30] MEDS: SEVELAMER CARBONATE 800 MG TABLET PO ×2 (08:15→12:00)
[2024-08-30] MEDS: SENNA TABLET 1 TAB PO (08:15)
[2024-08-30] MEDS: PANTOPRAZOLE 40 MG TABLET PO (08:15)
--- NOTE | 2024-08-30 09:56 | PC.SS ---
Patient Rui Shah is a 74 Year old male, admitted for Bradycardia. SS met with patient at bedside in order to complete initial assessment, however patient would not answer to SS questions. SS contacted patient's , Kathleen Shah via phone she reports patient's lives at home with her, Patient is a dialysis patient and goes every es/Thurs/Sat. @ 6a.m. 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 He uses a walker however also utilizes a wheelchair. reports she is patient's [facility] worker. Disposition is to return home. Family to transport home. Next of kin: , Kathleen Shah [phone] PCP: Hiral Discharge plan: home
--- NOTE | 2024-08-30 10:12 | PD.RESPRO ---
Documentation for date of: 08/30/24 Subjective Subjective Interval history: Patient was seen and examined at bedside this morning. Patient is asymptomatic with no chest pain, shortness of breath, dizziness, or palpitations. Patient is eager to go as he states he is feeling well and nothing is wrong with him. Patient had occasional PVCs overnight and heart rate ranged from high 30s to 40s and some episodes of heart rate of 70 to 80s. Patient's blood pressure in the 140s to 150s systolic overnight Labs today showed stable hemoglobin at 11.1, potassium 4.2, BUN 16, creatinine increased to 3.7 from 2.4, phosphorus 3.2, and magnesium 2 Recommend to keep potassium above 4 and magnesium above 2 at all times to avoid any arrhythmias. Exam Vital Signs Temp Pulse Resp BP Pulse Ox O2 Del Method 97 F 42 L 15 146/61 H 94 L Room Air 08/30/24 08:00 08/30/24 08:00 08/30/24 08:00 08/30/24 08:00 08/30/24 08:00 08/30/24 08:00 Narrative Exam General: Alert and oriented x3. In no acute distress. Eyes: Legally blind right eye and mostly sees shadows with left eye HEENT: Atraumatic, normocephalic. No JVD noted. Mucosa moist. Cardiovascular: Normal S1 and S2. Normal rate and regular rhythm. 3 or 6 systolic murmur heard in the apex as well as the right parasternal border. Respiratory: No respiratory distress. Decreased breath sounds in MICHAEL bases. No wheezing or crackles heard. Abdomen: Soft, nontender, nondistended. Skin: No rash. Warm to touch. Scars on the right side chest from previous tunneled dialysis catheter placement, left chest tunneled dialysis catheter in place, right failed AV fistula scar noted Musculoskeletal: No gross injuries. Able to move all 4 extremities. Neuro: Alert and oriented x3. No focal neuro deficits. Psych: Normal affect and mood Objective Labs 08/30/24 06:13 08/30/24 06:13 Labs: Laboratory Results - last 24 hr 08/29/24 08/30/24 09:37 06:13 WBC 6.5 6.6 RBC 3.83 L 3.72 L Hgb 11.5 L 11.1 L Hct 35.5 L 34.0 L MCV 93 91 MCH 30.0 29.8 MCHC 32.4 32.6 RDW Std Deviation 47.3 H 46.9 H Plt Count 180 206 Neut % (Auto) 50 53 Lymph % (Auto) 37 34 Gregory % (Auto) 8 8 Eos % (Auto) 4 4 Baso % (Auto) 1 1 Neut # (Auto) 3.2 3.5 Lymph # (Auto) 2.4 2.3 Gregory # (Auto) 0.5 0.5 Eos # (Auto) 0.2 0.3 Baso # (Auto) 0.0 0.0 Immature Gran # (Auto) 0.03 H 0.02 H Absolute Nucleated RBC 0.00 0.00 Immature Gran % 1 H 0 Nucleated RBC % 0 0 PT 12.5 H 11.7 INR 1.2 1.1 APTT > 139.0 H* 28.5 D Sodium 137 137 Potassium 3.3 L 4.2 D Chloride 101 99 Carbon Dioxide 28.5 28.7 Anion Gap 8 9 BUN 8 L 16 Creatinine 2.4 H 3.7 H D Estim Creat Clear Calc 22.3 L 15.7 L eGFR 28 L 17 L BUN/Creatinine Ratio 3 L 4 L Glucose [address] Glu mg/dL 123 Hemoglobin A1c 5.9 Calculated Osmolality 273 L 277 Calcium 10.0 9.8 Corrected Calcium 10.0 9.8 Phosphorus 3.2 Magnesium 2.0 2.0 Total Bilirubin 0.4 0.3 AST 27 21 ALT 42 33 Alkaline Phosphatase 181 H 155 H D Total Protein 7.6 7.3 Albumin 4.5 4.3 Globulin 3.1 3.0 Albumin/Globulin Ratio 1.5 1.4 Triglycerides 123 Cholesterol 123 L LDL Cholesterol, Calc 49 HDL Cholesterol 49 Cholesterol/HDL Ratio 2.5 L TSH 14.65 H Free T4 1.22 Quality Measures Quality Measures none Advance care planning discussed with:: patient Assessment & Plan Assessment Current Active Medications: Generic Name Dose Route Start Last Admin Trade Name Freq PRN Reason Stop Dose Admin Acetaminophen 650 mg 08/29/24 13:15 Acetaminophen 325 Mg Tablet PO 09/28/24 13:14 Q6H PRN Pain and Fever >101.5 Atorvastatin Calcium 10 mg 08/29/24 21:00 08/29/24 20:02 Atorvastatin Calcium 10 Mg Tablet PO 09/28/24 20:59 10 mg HS FRAN Administration Dextrose 25 ml 08/29/24 13:20 Dextrose 50%-Water Inj 50 Ml Syringe IV 09/28/24 13:19 Q15MIN PRN BG 50-70 responsive npo pt Dextrose 50 ml 08/29/24 13:20 Dextrose 50%-Water Inj 50 Ml Syringe IV 09/28/24 13:19 Q15MIN PRN BG <50 OR BG <70 & pt unresponsive Glucagon 1 mg 08/29/24 13:20 Glucagon Inj 1 Mg Vial IM Q15MIN PRN BG <70, and no IV access Hydralazine HCl 10 mg 08/29/24 13:28 Hydralazine Inj 20 Mg/Ml Vial IVP 09/28/24 13:29 Q6H PRN HTN SBP >180, DBP> 100 Insulin Glargine 55 unit 08/29/24 21:00 08/30/24 08:17 Insulin Glargine (Lantus) 5 Unit/0.05 Ml (Per 5 Units) SC 09/28/24 20:59 Not Given BID FRAN Insulin Human Lispro 0 unit 08/29/24 17:00 08/30/24 07:59 Insulin Lispro (Admelog) 1 Unit/0.01 Ml Unit SC 09/28/24 16:59 Not Given ACHS [facility] Protocol Ondansetron HCl 4 mg 08/29/24 13:15 Ondansetron Inj 2 Mg/Ml Inj 2 Ml IV 09/28/24 13:14 Q6H PRN NAUSEA OR VOMITING Protocol Pantoprazole Sodium 40 mg 08/30/24 09:00 08/30/24 08:15 Pantoprazole 40 Mg Tablet PO 09/29/24 08:59 40 mg QDAY FRAN Administration Sennosides 1 tab 08/29/24 13:30 08/30/24 08:15 Senna Tablet PO 09/28/24 13:29 1 tab QDAY FRAN Administration Protocol Sevelamer Carbonate 800 mg 08/29/24 17:30 08/30/24 08:15 Sevelamer Carbonate 800 Mg Tablet PO 09/28/24 17:29 800 mg TIDWM FRAN Administration Plan 73-year-old male with past medical history of intermittent high degree AV block including complete AV block, but with good ventricular escape rhythm seen on last admission on March 2024, ESRD on HD Saturday, , Saturday (failed right AV fistula, has left tunneled dialysis cath), hyperlipidemia, hypertension, blind from the right eye and mostly left eye as well, restless leg syndrome, GERD, type 2 diabetes mellitus, diabetic nephropathy, and diabetic neuropathy who was admitted to hospital on 08/29/2024 for asymptomatic bradycardia. 1. Asymptomatic severe bradycardia 2.intermittent high degree AV block Mobitz type II as well as complete heart block ?Patient persistently admitted on March 2024 for similar reasons ?Patient is completely asymptomatic at this time with no chest pain, dizziness, palpitations, shortness of breath, syncope, or feelings of fatigue or tiredness. ?Patient feels totally fine and states he does not have any of symptoms noted above even in his house. ?Patient had occasional PVCs on phototypesetting equipment monitor ?Heart rate in the high 30s to 40s and increased to 70 and 80s overnight ?Patient's blood pressure has been stable ?Echo from March 2040 was reviewed and it showed normal LV function, normal RV function. Mild aortic valve sclerosis without stenosis. Plan: ?Given that patient has good rescue rate rhythm as well as chronotropic response there is no emergent indication for permanent pacemaker at the present given that he is hemodynamically stable and asymptomatic ?Recommend to maintain systolic blood pressure around 140-150 ?Recommend IV hydralazine as needed for systolic blood pressure above 190 ?Recommend follow-up outpatient with me in my office ?Recommend print line operator consult as outpatient 3.ESRD on hemodialysis Saturday, , Saturday (failed right AV fistula, has left tunneled dialysis cath) ?Patient's creatinine on admission was 2.4 and up trended to 3.7 today ?Recommend to consult nephrology ?Continue management as per primary care team 4. Essential hypertension ?Patient's blood pressure has been in the 140s to 160s systolic since admission ?Blood pressure in the 140s overnight ?Patient seems to be on midodrine 10 mg 4 times daily at home most likely due to dialysis Plan: ?Recommend to keep systolic blood pressure around 140-150 ?Recommend IV hydralazine as needed for systolic blood pressure above 80 5. Hypothyroidism ?TSH 14.65 and free T41.22 On admission ?Recommend to start patient on low-dose levothyroxine ?Recommend follow-up outpatient with print line operator ?Continue management as per primary care team 6. DM2 7. Diabetic neuropathy 8. Diabetic nephropathy ?Patient is legally blind from the right eye and left eye he mostly sees shadows ?Patient has end-stage renal disease likely due to diabetic nephropathy ?Patient is on glipizide 10 mg twice daily, Januvia 50 mg daily, and Ozempic 0.5 mg subcu weekly at home ?Continue management as per primary care team 9. Hyperlipidemia ?Labs today showed triglycerides 123, cholesterol 123, LDL 49, HDL 49 ?Continue management as per primary care team 10. GERD ?Patient is on pantoprazole 40 mg daily at home ?Recommend to continue during hospital stay 11. Restless leg syndrome ?Patient is on ropinirole 2 mg twice daily at home ? Recommend to continue during hospital stay Continue rest of management as per primary team. We are grateful to be able to participate in Mr. Carter' care. Thank you for the consult Plan of care discussed with attending Nnps, Dr Rolanda Rojas MD PGY-1 Attending Provider Attestation/Addendum I have personally seen and examined the patient separately on the above date of service and discussed the plan of care with the resident. I reviewed the resident Dr. Iverson consultation progress note and agree with the resident findings and plan in the note above and have also edited the documentation to reflect my findings and plan. Fuad Orantes M.D. Interventional Cardiology
--- NOTE | 2024-08-30 10:24 | PC.SS ---
SS follow up note; Cardiology Rec's pending, Poss pacemaker.
[2024-08-30] MEDS: INSULIN LISPRO (AdmeLOG) 1 UNIT/0.01 ML UNIT SC (11:20)
[2024-08-30] MEDS: CLOPIDOGREL BISULFATE 75 MG TABLET PO (12:00)
--- NOTE | 2024-08-30 13:13 | ESDS_ITS ---
<Statement entered by Eder Sanchez MD - 09/01/24 14:59> 73-year-old male with multiple comorbidities including hypertension, hyperlipidemia and type 2 diabetes mellitus with subsequent end-stage renal disease on hemodialysis Saturday, and Saturday who was undergoing his routine hemodialysis session when all of a sudden started becoming bradycardic with heart rate in the 30s and subsequently hemodialysis was discontinued and sent to the ER. In the ER, patient was noted to have heart rate in the 40s with EKG significant for complete heart block and thus cardiology was consulted who recommended patient being admitted for possible pacemaker placement. Patient denies being on beta-blockers, calcium channel blockers or eyedrops. During course of hospitalization, patient heart rate dropped into the mid 30s however hemodynamically stable and did not have any hypotension, chest pain or dizziness. Discussed case with cardiology who recommended patient to be discharged and follow-up outpatient for pacemaker placement. Discussed this with the patient and he stated that he is in agreement with our plan to discharge him and he will follow-up as outpatient as he does not want to be transferred for pacemaker placement. As of now, patient has been cleared for discharge by cardiology team and thus plan to discharge patient today. Patient was given ER precaution was told that if he was to get palpitation, chest discomfort/pain, dizziness, shortness of breath to call 911 or present to the nearest ER. Patient and family at bedside in agreement with her plan and patient verbalized understanding and appreciation for the medical team. I reviewed above note and agree with findings and plans. I have also personally examined the patient with medicine team and went over assessment and plan with medical team including hospitality internship and resident physician. <Statement entered by Martha Patel MD - 08/30/24 18:40> Patient was seen and examined at bedside. His heart rate dropped to the 40s. As per the [employer] Dr. Fuad Duong he informed that the patient can be discharged home and follow-up in outpatient settings for placement of pacemaker as the patient has long history of severe bradycardia and asymptomatic. The patient also was adamant for discharge as he informed that the patient daughter has in June due to car accident and he wanted to go prepare for her . We informed the patient to hold midodrine and to use it only if his blood pressure is low during dialysis to avoid further bradycardia. - Patient's plan and care discussed with my attending, Dr. Daniel Patel MD Internal Medicine PGY-2 Planned Discharge Date 08/30/24 DS: Providers Provider Date of admission: 08/29/24 13:15 Primary care physician: Keisha Chand MD Admitting Provider: Eder Sanchez MD Attending Provider on Admission: Eder Sanchez MD Consults: 08/29/24 13:26 Consult to Cardiology Stat Comment: Asymptomatic Bradycardia Consulting Provider: Fuad Orantes 08/29/24 13:27 Consult to Nephrology Stat Comment: ESRD, Dr [facility] patient Consulting Provider: Pebbles Qureshi Attending Provider on DC: Eder Sanchez MD Discharging Provider: Eder Sanchez MD DS: Diagnosis Problem List Completed Was Problem List Reviewed/Reconciled?: Yes Hospital Course Hospital Course Hospital course: Rui is a 74 y/o male with PMHx of end-stage renal disease on dialysis, hypertension, coronary artery disease, type 2 diabetes mellitus, diabetic nephro andrea/neuropathy and diabetic retinopathy who was admitted to [facility] on 08/29/2024 for asymptomatic bradycardia and intermittent high degree AV block Mobitz type II as well as complete heart block. Patient had come in after dialysis session in which she was told to come in for his low heart rate in the 30s, was previously admitted in March for similar symptoms of bradycardia. He presented to the ED with the following vitals of a blood pressure of 144/56, pulse of 41, respiratory rate of 16, temperature of 97.5, oxygen saturation 98 on room air, labs significant for RBC 3.83, hemoglobin 11.5, hematocrit 35.5, APTT more than 139, PT 12.5, potassium 3.3, BUN 8, creatinine 2.4, GFR 28, glucose 112, BUN 3, osmolality 273, alk phos 181, TSH 14.65, free T4 1.22, EKG showed sinus bradycardia with a rate of 37 possible type II Mobitz block. Cardiology, Dr. Orantes, was consulted and patient was admitted to the floor. While on the floors, patient seen by cardiology and had an assessment of completely asymptomatic bradycardia with intermittent complete heart block with intermittent second-degree AV block type II. Patient also had rapid response called on the, for heart rate going into low 30s, but was asymptomatic and blood pressure was 170/80. Considering patient has trouble with venous access, history of AV fistula, and patient currently has a TDC in the subclavian access, patient can get pacemaker done as outpatient. At this time, considering patient is asymptomatic and hemodynamically stable, patient can get pacemaker outpatient. Patient did express that he wanted to leave and that he has to go to the coming days and needs time to prepare. Cardiology was spoken with again and since patient needs outpatient pacemaker placement, patient was okay to be discharged. Pacemaker implantation will be difficult as patient has poor venous access as well. Upon further workup, patient was found to have TSH of 14 and free T4 of 1.22. Patient is recommended to follow-up TSH for possible subclinical hypothyroidism. With concerns for bradycardia, patient will continue to take midodrine only during dialysis sessions. Follow up with your Doctor within one week from discharge Repeat TSH (thyroid) study in outpatient setting Follow up with the [employer] [employer] Dr Sukhjinder Duong at [facility], [address] [place] [id number]. [phone] Pt will need outpatient pacemaker placement Continue taking medicines as prescribed Use midodrine only during dialysis if your blood pressure is low Return to ER if condition worsens or symptoms appear # Asymptomatic sinus bradycardia # Diabetes mellitus # Diabetic nephropathy # Diabetic neuropathy # Diabetic retinopathy # End-stage renal disease # Hypertension Patient seen and care discussed with my senior resident, Dr. Patel , and my attending physician, Dr. Daniel Santana, PGY-1 Time Spent with Patient Time attestation: Total time spent providing and/or coordinating discharge services: Time spent: Greater than 30 minutes Exam Vital Signs Temp Pulse Resp BP Pulse Ox O2 Del Method 97.5 F 73 18 118/61 97 Room Air 08/30/24 12:00 08/30/24 12:00 08/30/24 12:08/30/24 12:08/30/24 12:08/30/24 12:00 Narrative Exam General: Awake and in no acute distress. Conversational and non-toxic appearing. HEENT: Normocephalic, atraumatic, mucous membranes moist. 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 Heart: Bradycardia noted and rhythm, no murmurs. Lungs: Clear to auscultation with no wheezing. Bibasilar crackles noted Abdomen: Soft, nondistended, nontender, positive bowel sounds. ?No guarding or rebound tenderness. Neurologic: Alert and oriented x3, no gross neurological deficit, and patient able to move all 4 extremities. Extremities: No edema. Skin: No rash or ecchymoses. Discharge Plan Plan Patient Disposition: HOME (Self Care) Patient condition on transfer: Benefits outweigh risks Health Concerns: Follow up with your Doctor within one week from dischage Follow up with the miller [employer] Dr Sukhjinder Duong at ?[facility], [address] [place] [id number]. [phone] tel:[phone] Use midodrin only during dialysis if your blood pressure is low Prescriptions/Referrals Prescriptions/Med Rec: Continued glipizide 10 mg Tablet 10 mg PO BID Qty: 180 midodrine 10 mg Tablet 10 mg PO QID Qty: 180 atorvastatin 10 mg Tablet 10 mg PO HS cholecalciferol (vitamin D3) [Vitamin D3] 1,000 unit Capsule 1,000 unit PO QDAY ropinirole 1 mg Tablet 2 mg PO BID cetirizine 10 mg Tablet 10 mg PO QDAY PRN (Reason: Allergic Symptoms) ondansetron HCl 4 mg Tablet 4 mg PO BID PRN (Reason: Nausea) pantoprazole 40 mg tablet,delayed release (DR/EC) 40 mg PO QDAY hydroxyzine HCl 25 mg Tablet 25 mg PO HSPRN PRN (Reason: Itching) lactulose [Constulose] 10 gram/15 mL solution 20 ml PO TID Levemir FlexTouch U100 Insulin 100 unit/mL (3 mL) Insulin Pen See Rx Instructions .ROUTE .COMPLEX Rx Instructions: 30 units SC QAM and 10 units SC QHS Ozempic 0.25 mg or 0.5 mg(2 mg/1.5 mL) Pen Injector 0.5 mg SUBCUT QWEEK clopidogrel [Plavix] 75 mg Tablet 75 mg PO QDAY Qty: 30 0RF gabapentin 100 mg capsule 100 mg PO BID Patient Comments: take 1 capsule by mouth twice a day sevelamer carbonate [Renvela] 800 mg Tablet 1,600 mg PO TID montelukast 10 mg tablet 10 mg PO DAILY Patient Comments: take 1 tablet by mouth once daily Januvia 50 mg tablet 50 mg PO DAILY Patient Comments: take 1 tablet by mouth once daily Referrals: Keisha Chand MD [Primary Care Provider] - Patient/Caregiver Discharge Instructions Education Materials: Your Heart's Electrical System, Understanding Bradycardia Print Language: French Stand Alone Forms: Haritha Award Info., Patient Portal Info Letter Discharge Order Discharge Orders: Discharge (Routine); Ordered 08/30/24 Ordered By: Keith Cortes Quality Discharge Quality Measures VTE prophylaxis (SCDs)
== END 2024-08-30 14:18 | disposition home or self-care (01) ==
LOC: SERX 09:52 → SERHOLD 15:26 → S2NX 08-30 12:02 → SERHOLD 09-01 07:03 → S2NX 09-01 07:03
PROVIDERS: Admitting Provider Internal Medicine; Emergency Provider Emergency Medicine; PCP Internal Medicine; Visit Provider Internal Medicine
DX: I44.2 Atrioventricular block, complete (principal); E78.00 Pure hypercholesterolemia, unspecified; N18.6 End stage renal disease; M19.90 Unspecified osteoarthritis, unspecified site; L90.5 Scar conditions and fibrosis of skin; K21.9 Gastro-esophageal reflux disease without esophagitis; I25.10 Atherosclerotic heart disease of native coronary artery without angina pectoris; I12.0 Hypertensive chronic kidney disease with stage 5 chronic kidney disease or end stage renal disease; H54.8 Legal blindness, as defined in USA; G25.81 Restless legs syndrome; G20.A1 Parkinson's disease without dyskinesia, without mention of fluctuations; E87.5 Hyperkalemia; E87.20 Acidosis, unspecified; E11.40 Type 2 diabetes mellitus with diabetic neuropathy, unspecified; E11.319 Type 2 diabetes mellitus with unspecified diabetic retinopathy without macular edema; E11.22 Type 2 diabetes mellitus with diabetic chronic kidney disease; E03.9 Hypothyroidism, unspecified; I44.1 Atrioventricular block, second degree
CPT/HCPCS: 36415; 80053; 80061; 81001; 83036; 83735; 84100; 84439; 84443; 85025; 85610; 85730; 93005; 99285; G0378; J1815; A9270

== ENCOUNTER 2024-09-13 14:30 | Inpatient (IN) | payer MEDICARE, MEDICAID, SELFPAY ==
[2024-09-13] VITALS (31 sets, daily range): BP systolic 97–170; BP diastolic 42–80; PULSE 32–86; RESP 6–19; TEMP 36.4–36.9; O2SAT 91–99; BMI 20.6
--- NOTE | 2024-09-13 14:52 | EKG_ITS ---
[facility] Test Date: 2024-09-13 Pat Name: ABRAHAM ANN Department: Room: - Gender: Male Exchange Administrator: : 1950 Requested By: Rich Camilo Order Number: [id number] Reading MD: Rich Camilo Measurements Intervals [place] Rate: 33 P: SD: QRS: -13 QRSD: 161 T: 148 QT: 606 QTc: 453 Interpretive Statements SINUS BRADYCARDIA WITH 2ND DEGREE AV BLOCK, MOBITZ TYPE II LEFT BUNDLE BRANCH BLOCK [120+ ms QRS DURATION, 80+ ms Q/S IN V1/V2, 85+ ms R IN I/aVL/V5/V6] Compared to ECG 08/29/2024 09:20:14 Left bundle-branch block now present Myocardial infarct finding no longer present /store/S0/[id number]/ecg/[id number].pdf
--- NOTE | 2024-09-13 14:52 | XR_ITS ---
Examination: CT brain head without contrast. 2-D sagittal coronal reconstructions Date and time of exam:September 13, 2024 1508 hrs. Comparison May 16, 2024 Indications: Patient fell today with injury to the head, head pain CTDI: vol (mGy):48.8 DLP: (mGycm):988 Technique: Multiple CT axial sections of the brain have been obtained, 5 mm slice thickness. Contrast has not been administered. 2-D sagittal, coronal reconstructions have been obtained Low dose protocols were performed. One or more of the following dose reduction techniques were used; automated exposure control, adjustment of the mA and/or KV according to patient size, use of iterative reconstruction technique. Findings: No significant ventricular enlargement. 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 No mass effect or midline shift Basal cisterns are not remarkable. Fourth ventricle is midline. Cranial vault intact. Impression: Negative for acute hemorrhage, mass effect or midline shift
--- NOTE | 2024-09-13 14:52 | XR_ITS ---
Examination: CT cervical spine without contrast 2-D sagittal reconstructions 2-D coronal reconstructions 3-D reconstructions. Exam date and time:September 13, 2024 at 1508 hrs. Indications: Ground-level fall today with injury to the neck, neck pain CTDI:vol (mGy) 9.62 DLP: (mGycm) 154 Technique: Multiple 2 mm axial sections of the cervical spine have been obtained. The coronal and sagittal reconstructions have been obtained. 3-D reconstructions have been obtained. Low dose protocols were performed. One or more of the following dose reduction techniques were used; automated exposure control, adjustment of the mA and/or KV according to patient size, use of iterative reconstruction technique. Findings: Axial sections demonstrate intact base of the skull. C1 exhibit satisfactory relationship to the odontoid. No acute cervical vertebral body fracture seen. Alignment posterior spinous processes satisfactory. Impression: No acute cervical fracture.
--- NOTE | 2024-09-13 14:54 | EDNOTE_ITS ---
<Statement entered by Tabitha Swift MD - 09/13/24 23:19> As co-signing physician, I was present and available for consult prn. I concur with the plan and care as documented by the midlevel provider. ED General RME/HPI General Chief complaint: Weakness Stated complaint: WEAKNESS Time Seen by Provider: 09/13/24 14:52 Arrival date/time: 09/13/24 14:30 CC: Lightheaded dizziness HPI patient states he fell and then promptly became dizzy afterwards. The patient is a dialysis patient Saturday and Saturday Dr Chand is his rubbish collector. Patient states he got up out of bed to go to his refrigerator and when he turned around lost balance and fell backwards after which she began to feel lightheaded and dizzy. Patient warn me upon an interview that he is a low heart rate. Patient currently denies chest pain or shortness of breath. Is complaining of acute on chronic low back pain Related Data Home Medications ?Medication ?Instructions ?Recorded ?Confirmed glipizide 10 mg tablet 10 mg PO BID ##180 10/30/17 08/29/24 midodrine 10 mg tablet 10 mg PO QID ##180 10/30/17 08/29/24 atorvastatin 10 mg tablet 10 mg PO HS 11/17/18 08/29/24 cholecalciferol (vitamin D3) 25 1,000 unit PO QDAY 11/17/18 08/29/24 mcg (1,000 unit) capsule (Vitamin D3) gabapentin 100 mg capsule 100 mg PO BID 08/06/19 08/29/24 sevelamer carbonate 800 mg tablet 1,600 mg PO TID 02/24/20 08/29/24 (Renvela) cetirizine 10 mg tablet 10 mg PO QDAY PRN Allergic Symptoms 01/17/21 08/29/24 hydroxyzine HCl 25 mg tablet 25 mg PO HSPRN PRN Itching 01/17/21 08/29/24 insulin detemir U-100 100 unit/mL See Rx Instructions .Route .COMPLEX 01/17/21 08/29/24 (3 mL) subcutaneous pen (Levemir FlexTouch U-100 Insulin) lactulose 10 gram/15 mL oral 20 ml PO TID 01/17/21 08/29/24 solution (Constulose) ondansetron HCl 4 mg tablet 4 mg PO BID PRN Nausea 01/17/21 08/29/24 pantoprazole 40 mg tablet,delayed 40 mg PO QDAY 01/17/21 08/29/24 release ropinirole 1 mg tablet 2 mg PO BID 01/17/21 08/29/24 semaglutide 0.25 mg or 0.5 mg (2 0.5 mg subcut QWEEK 01/17/21 08/29/24 mg/1.5 mL) subcutaneous pen injector (Ozempic) montelukast 10 mg tablet 10 mg PO DAILY 04/05/24 08/29/24 sitagliptin phosphate 50 mg tablet 50 mg PO DAILY 04/05/24 08/29/24 (Alex) Previous Rx's ?Medication ?Instructions ?Recorded clopidogrel 75 mg tablet (Plavix) 75 mg PO QDAY #30 tabs 01/19/21 Allergies Allergy/AdvReac Type Severity Reaction Status Date / Time diphenhydramine Allergy Mild ANXIETY Verified 08/29/24 09:13 Review of Systems Review of Systems Narrative Review of Systems: GEN: No fever, no chills, no weight loss EYES: No discharge, no visual changes, no pain HEENT: No ear pain, no congestion, no sore throat PULM: No shortness of breath, no cough, no congestion CV: No chest pain, no dyspnea on exertion, no palpitations GI: No nausea, no vomiting, no diarrhea, no pain, no constipation : No frequency, no urgency, no dysuria MUSC/SKEL: No joint pain, + back pain SKIN: No rash PSYCH: No hallucinations, no depression HEME/LYMPH: No easy bleeding or bruising tendencies NEURO: + weakness, + dizziness, no headache Past Medical History Past Medical History NEUROLOGIC: Negative Neurological Disorders CARDIAC: Positive Cardiac Disorders, Hypercholesterolemia, Hypertension and Hypotension; Negative Congestive Heart Failure RESPIRATORY: Positive Pneumonia; Negative Chronic Obstructive Pulmonary Disease (COPD) GASTROINTESTINAL: Positive Gastrointestinal Disorders and Gastroesophageal Reflux Disease; Negative Hepatitis GENITOURINARY: Positive Genitourinary Disorders, Renal Disease, Kidney Stones and Dialysis MUSCULOSKELETAL: Positive Musculoskeletal Disorders, Arthritis, Degenerative Disk Disease and Degenerative Joint Disease ENT: Positive Blind and Deafness ENDOCRINE: Positive Endocrine Disorders, Diabetes Mellitus Type 2 and Hypothyroidism; Negative Diabetes Mellitus Type 1 HEMATOLOGIC: Negative Blood Disorders PSYCHO/SOCIAL: Positive Anxiety OTHER HISTORY: Positive Hospitalization and Falls; Negative Autoimmune Disease, MRSA, Chicken Pox or Cancer Family History FAMILY HISTORY: Positive Family Cancer and Family Surgery; Negative Family Psychiatric Problems, Family Respiratory Disorders, Family Cardiac Disorders, Family Gastrointestinal Problems or Family Anesthesia Reaction Surgical History SURGICAL: Positive Amputation Social History SMOKING STATUS: Former smoker SUBSTANCE USE: does not use ED Exam Narrative Physical exam: [General: Thin, emaciated, but not in any acute distress Head normocephalic HEENT: Eyes pupils are tracking and reactive (patient is blind ), mouth pink moist membranes uvula is midline swallow symmetrical all other subsystems of ATTR within acceptable limits Neck is supple nontender Chest equal chest rise nontender to palpation, dialysis catheter emerging from the left anterior chest dressing is clean dry and intact. Respiratory: Clear to auscultation no wheezes crackles or rubs CV: Rate rhythm is regular no murmurs rubs or clicks Abdomen is soft nontender no masses positive bowel sounds all 4 quadrants Back: Tender to upper lumbar paraspinal region with palpation. Skin: Intact no petechiae rash induration ulceration or crepitus Extremities: Moving all extremity against resistance cap refill less than 2 seconds neurosensory intact. Decreased range of motion of the lower extremities secondary to referred pain in the low back. Neuro: Awake alert oriented x2, person and place, Glascow coma 15 no focal deficits] Course Course Course Narrative: Patient's case and laboratory results EKGs and a lead to strip showing a complete heart block lasting approximately 2 seconds were discussed with Dr. Orantes, collections analyst, who agrees to consult on this patient admit. Patient's case then discussed with Dr. Maza and he for Dr. Fischer attending who agrees to accept the patient for admission. Quality Measures VTE prophylaxis Orders Category Date Time Status EKG (ED ONLY) *Do not use* NOW Care 09/13/24 14:52 Completed Consult to Cardiology Stat Cons 09/13/24 21:[address] cervical spine wo con Stat Exams 09/13/24 14:[address] head/brain wo con Stat Exams 09/13/24 14:[address] lumbar spine wo con Stat Exams 09/13/24 14:[address] thoracic spine wo con Stat Exams 09/13/24 14:57 Completed EKG (ED Only) Stat Exams 09/13/24 14:52 Draft B-Type Natriuretic Peptide Stat Lab 09/13/24 15:27 Completed CBC Stat Lab 09/13/24 15:27 Completed Comprehensive Metabolic Panel Stat Lab 09/13/24 15:21 Completed Free T4 (Free Thyroxine) Stat Lab 09/13/24 17:38 Completed LDH (Lactate Dehydrogenase) Stat Lab 09/13/24 15:21 Completed Mag [Magnesium] Stat Lab 09/13/24 17:38 Completed Magnesium Stat Lab 09/13/24 15:21 Completed Partial Thromboplastin Time Stat Lab 09/13/24 15:27 Completed Potassium Stat Lab 09/13/24 17:38 Completed Potassium Stat Lab 09/13/24 20:12 Completed Prothrombin Time with INR Stat Lab 09/13/24 15:27 Completed TSH [Thyroid Stimulating Hormone] Stat Lab 09/13/24 17:38 Completed Troponin I Stat Lab 09/13/24 15:21 Completed Type and Screen Stat Lab 09/13/24 15:27 Completed Acetaminophen Tab [Tylenol ES Tab] Med 09/13/24 15:48 Discontinued 1,000 mg PO X1 ONE Calcium Gluconate 10% Inj Med 09/13/24 17:21 Discontinued 1 gm IV X1 ONE Dextrose 50% Syr [D50w Syringe Abboject] Med 09/13/24 17:22 Discontinued 25 ml IV X1 ONE Insulin Regular Med 09/13/24 17:22 Discontinued 5 unit IV X1 ONE Vital Signs Vital signs: Vital Signs Temperature 98.5 F 09/13/24 14:37 Pulse Rate 69 09/13/24 14:37 Respiratory Rate 19 09/13/24 14:37 Blood Pressure 157/75 H 09/13/24 14:37 Pulse Oximetry (%) 99 09/13/24 14:37 Oxygen Delivery Method Room Air 09/13/24 14:37 [facility] Patient data External records reviewed:: [facility] previous records and EMS form Clinical information provided by:: patient and EMS Social determinants that could affect healthcare access:: none Patient has the following chronic illnesses:: ESRD dialysis bradycardia chronic back pain on blood thinners diabetes hypertension How is presenting disease/condition affected by chronic disease/condition?: e xacerbated by Evaluation data The following diagnostics were reviewed and interpreted by me:: lab results, radiology exam(s) and EKG tracing(s) Lab and/or radiology exams considered but not ordered:: EKG performed at 1628 shows a ventricular rate of 33 QRS of 161 QTc of 494 sinus bradycardia first-degree block left bundle branch when compared to an old EKG of April 04, 2024 there are no significant changes however in the interim the patient has had EKGs that show sinus rhythm of normal rate. CBC shows no leukocytosis and stable anemia of 11.7 and 36.5 respectively platelets 160 CMP shows a sodium 134 potassium of 5.6 chloride of 97 CO2 of 28.6 BUN of 35 creatinine 4.8 glucose of 185. Coags within acceptable limits Calcium of 10.0 T. bili of 0.4 AST 41 ALT of 11 alk phos of 190 LDH of 290 BNP of 528 Troponin of less than 0.020. Subsequent potassiums were draw drawn either after hyperkalemic medications were ordered but not given or immediately after they were given. Interpretation Summary: Symptomatic bradycardia. Patient to be admitted per discussion with Dr. orantes Medications Medications considered but not ordered:: None Medication administrations:: Medication Administration History Discontinued Medications Acetaminophen (Acetaminophen 500 Mg Tablet) 1,000 mg PO X1 ONE Stop: 09/13/24 15:49 Last Admin: 09/13/24 17:05 Dose: 1,000 mg Documented By: LUANA Calcium Gluconate (Calcium Gluconate 10% Inj 1 Gm/10 Ml Vial) 1 gm IV X1 ONE Stop: 09/13/24 17:22 Last Admin: 09/13/24 17:42 Dose: 1 gm Documented By: LUANA Dextrose (Dextrose 50%-Water Inj 50 Ml Syringe) 25 ml IV X1 ONE Stop: 09/13/24 17:23 Last Admin: 09/13/24 17:43 Dose: 25 ml Documented By: LUANA Insulin Human Regular (Insulin Hum Regular 1 Unit/0.01 Ml (Per Unit)) 5 unit IV X1 ONE Stop: 09/13/24 17:23 Last Admin: 09/13/24 17:46 Dose: 5 unit Documented By: LUANA Co-signed By: ALISIA None Consultations Consultation(s) initiated? (list below): Yes Consultation #1 (Physician, Specialty, Details): Julianna Time: 21:31 Diagnosis Differential Diagnosis ED Complaint MDM: Third-degree heart block symptomatic bradycardia closed head injury Most likely diagnosis given after review of the tests above:: Symptomatic bradycardia Admission Indicated Admission indicated?: indicated Explain why admission is indicated or not indicated:: Requires further medical management Admission Request Was there a request for admission?: No Disposition Plan Disposition Plan: Admit Medical Decision Making Differential Diagnosis Differential Diagnosis: Third-degree heart block symptomatic bradycardia closed head injury Lab Data 09/13/24 15:27 09/13/24 20:12 Labs: Lab Results 09/13/24 09/13/24 09/13/24 Range/Units 15:21 15:27 17:38 WBC 8.7 (3.8-10.6) Thou/mm3 RBC 3.89 L (4.50-5.90) Miln/mm3 Hgb 11.7 L (13.5-16.0) g/dL Hct 36.5 L (41.0-53.0) % MCV 94 (80-100) fL MCH 30.1 (25.0-35.0) pg MCHC 32.1 (31.0-37.0) g/dl RDW Std Deviation 53.3 H (35.1-43.9) fL Plt Count 160 D (140-440) Thou/mm3 Neut % (Auto) 67 (37-80) % Lymph % (Auto) 22 (10-50) % [place] % (Auto) 9 (0-12) % Eos % (Auto) 2 (0-10) % Baso % (Auto) 0 (0-2.5) % Neut # (Auto) 5.8 (1.8-7.7) Thou/mm3 Lymph # (Auto) 1.9 (1.0-4.8) Thou/mm3 [place] # (Auto) 0.8 (0.0-0.8) Thou/mm3 Eos # (Auto) 0.2 (0.0-0.5) Thou/mm3 Baso # (Auto) 0.0 (0.0-0.2) Thou/mm3 Immature Gran # (Auto) 0.04 H (0.00-0.00) Thou/mm3 Absolute Nucleated RBC 0.00 (0.00-0.00) Thou/mm3 Immature Gran % 1 H (0-0) % Nucleated RBC % 0 (0) /100 WBC PT 11.6 (9.0-12.2) Seconds INR 1.1 (0.9-1.3) APTT 26.8 (22.0-36.0) Seconds Sodium 134 L (136-145) mMol/L Potassium 5.6 H 5.9 H (3.4-5.1) mMol/L Chloride 97 L (98-107) mMol/L Carbon Dioxide 28.6 (20.0-31.0) mMol/L Anion Gap 8 (7-16) BUN 35 H (9-23) mg/dL Creatinine 4.8 H* (0.6-1.3) mg/dL Estim Creat Clear Calc Not Performed. eGFR 12 L* (60 - ) See Note BUN/Creatinine Ratio 7 L (12-20) Ratio Glucose 185 H (74-106) mg/dL Calculated Osmolality 281 (275-295) Calcium 10.0 (8.3-10.6) mg/dL Corrected Calcium 10.0 (8.5-10.1) mg/dL Magnesium 2.4 2.3 (1.6-2.6) mg/dL Total Bilirubin 0.4 (0.3-1.2) mg/dL AST 41 H (0-34) U/L ALT 11 (10-49) U/L Alkaline Phosphatase 190 H (46-116) U/L Lactate Dehydrogenase 290 H (120-246) U/L Troponin I < 0.020 (0.0-0.045) ng/mL B-Natriuretic Peptide 528 H* (0-100) pg/mL Total Protein 8.2 (5.7-8.2) gm/dL Albumin 4.4 (3.4-4.8) gm/dL Globulin 3.8 H (2.3-3.5) gm/dL Albumin/Globulin Ratio 1.2 (1.2-2.2) TSH 6.72 H D (0.55-4.78) uIU/mL Free T4 0.96 (0.89-1.76) ng/dL Blood Type A Positive Antibody Screen NEGATIVE Blood Bank Wristband ID Yes 09/13/24 Range/Units 20:12 WBC (3.8-10.6) Thou/mm3 RBC (4.50-5.90) Miln/mm3 Hgb (13.5-16.0) g/dL Hct (41.0-53.0) % MCV (80-100) fL MCH (25.0-35.0) pg MCHC (31.0-37.0) g/dl RDW Std Deviation (35.1-43.9) fL Plt Count (140-440) Thou/mm3 Neut % (Auto) (37-80) % Lymph % (Auto) (10-50) % [place] % (Auto) (0-12) % Eos % (Auto) (0-10) % Baso % (Auto) (0-2.5) % Neut # (Auto) (1.8-7.7) Thou/mm3 Lymph # (Auto) (1.0-4.8) Thou/mm3 [place] # (Auto) (0.0-0.8) Thou/mm3 Eos # (Auto) (0.0-0.5) Thou/mm3 Baso # (Auto) (0.0-0.2) Thou/mm3 Immature Gran # (Auto) (0.00-0.00) Thou/mm3 Absolute Nucleated RBC (0.00-0.00) Thou/mm3 Immature Gran % (0-0) % Nucleated RBC % (0) /100 WBC PT (9.0-12.2) Seconds INR (0.9-1.3) APTT (22.0-36.0) Seconds Sodium (136-145) mMol/L Potassium 5.6 H (3.4-5.1) mMol/L Chloride (98-107) mMol/L Carbon Dioxide (20.0-31.0) mMol/L Anion Gap (7-16) BUN (9-23) mg/dL Creatinine (0.6-1.3) mg/dL Estim Creat Clear Calc eGFR (60 - ) See Note BUN/Creatinine Ratio (12-20) Ratio Glucose (74-106) mg/dL Calculated Osmolality (275-295) Calcium (8.3-10.6) mg/dL Corrected Calcium (8.5-10.1) mg/dL Magnesium (1.6-2.6) mg/dL Total Bilirubin (0.3-1.2) mg/dL AST (0-34) U/L ALT (10-49) U/L Alkaline Phosphatase (46-116) U/L Lactate Dehydrogenase (120-246) U/L Troponin I (0.0-0.045) ng/mL B-Natriuretic Peptide (0-100) pg/mL Total Protein (5.7-8.2) gm/dL Albumin (3.4-4.8) gm/dL Globulin (2.3-3.5) gm/dL Albumin/Globulin Ratio (1.2-2.2) TSH (0.55-4.78) uIU/mL Free T4 (0.89-1.76) ng/dL Blood Type Antibody Screen Blood Bank Wristband ID Discharge Plan Plan Patient Disposition: Other Care w/in Hosp ([facility]) Patient condition on transfer: Stable Prescriptions/Referrals Prescriptions/Med Rec: No Action glipizide 10 mg Tablet 10 mg PO BID Qty: 180 midodrine 10 mg Tablet 10 mg PO QID Qty: 180 atorvastatin 10 mg Tablet 10 mg PO HS cholecalciferol (vitamin D3) [Vitamin D3] 1,000 unit Capsule 1,000 unit PO QDAY ropinirole 1 mg Tablet 2 mg PO BID cetirizine 10 mg Tablet 10 mg PO QDAY PRN (Reason: Allergic Symptoms) ondansetron HCl 4 mg Tablet 4 mg PO BID PRN (Reason: Nausea) pantoprazole 40 mg tablet,delayed release (DR/EC) 40 mg PO QDAY hydroxyzine HCl 25 mg Tablet 25 mg PO HSPRN PRN (Reason: Itching) lactulose [Constulose] 10 gram/15 mL solution 20 ml PO TID Levemir FlexTouch U100 Insulin 100 unit/mL (3 mL) Insulin Pen See Rx Instructions .ROUTE .COMPLEX Rx Instructions: 30 units SC QAM and 10 units SC QHS Ozempic 0.25 mg or 0.5 mg(2 mg/1.5 mL) Pen Injector 0.5 mg SUBCUT QWEEK clopidogrel [Plavix] 75 mg Tablet 75 mg PO QDAY Qty: 30 0RF gabapentin 100 mg capsule 100 mg PO BID Patient Comments: take 1 capsule by mouth twice a day sevelamer carbonate [Renvela] 800 mg Tablet 1,600 mg PO TID montelukast 10 mg tablet 10 mg PO DAILY Patient Comments: take 1 tablet by mouth once daily Januvia 50 mg tablet 50 mg PO DAILY Patient Comments: take 1 tablet by mouth once daily Referrals: Keisha Chand MD [Primary Care Provider] - In 1 week Problem List Clinical Impression: Symptomatic bradycardia, ESRD (end stage renal disease) on dialysis, Hyperkalemia Patient/Caregiver Discharge Instructions Print Language: Turkish Stand Alone Forms: [employer] Info., Patient Portal Info Letter PA/TICKET AGENT Supervising Physician PA/TICKET AGENT Supervising Physician: Rich Hale ENP
--- NOTE | 2024-09-13 14:57 | XR_ITS ---
Examination: CT thoracic spine, without contrast. 2-D sagittal reconstructions. 2-D coronal reconstructions. 3-D reconstructions. Date and time of exam:September 11, 2024 1511 hrs. Indications: Patient fell today with injury to the upper back, upper back pain CTDI: vol (mGy):16.5 DLP: (mGycm):544 Technique: Multiple 1.25 mm axial sections of the thoracic spine without intravenous contrast have been obtained. 2-D sagittal and coronal reconstructions have been obtained. 3-D reconstructions have been obtained. Low dose protocols were performed. One or more of the following dose reduction techniques were used; automated exposure control, adjustment of the mA and/or KV according to patient size, use of iterative reconstruction technique. Findings: Adequate alignment thoracic vertebral bodies on the lateral view No acute thoracic vertebral body fracture Mild diffuse thoracic disc narrowing Thoracic pedicles, laminae, transverse and posterior spinous processes intact Mild parenchymal disease right base axial image 100 which may represent scar formation, clinical correlation advised Impression: No acute thoracic fracture
--- NOTE | 2024-09-13 14:57 | XR_ITS ---
Examination: CT lumbar spine, without contrast. 2-D sagittal reconstructions. 2-D coronal reconstructions. 3-D reconstructions. Date and time of exam:September 11, 2024 1511 hrs. Comparison May 16, 2024 Indications: Patient fell today with injury to the lower back, lower back pain CTDI: vol (mGy):15.3 DLP: (mGycm):448 Technique: Multiple 1.25 mm axial sections of the lumbar spine without intravenous contrast have been obtained. 2-D sagittal and coronal reconstructions have been obtained. 3-D reconstructions have been obtained. Low dose protocols were performed. One or more of the following dose reduction techniques were used; automated exposure control, adjustment of the mA and/or KV according to patient size, use of iterative reconstruction technique. Findings: Severe osteopenia Chronic compression L1 vertebral body again noted No acute lumbar vertebral body compression fracture Lumbar pedicles, laminae, and posterior spinous processes intact L5-S1 3 mm central lumbar disc bulge L4-L5 3 mm central lumbar disc bulge Impression: No acute lumbar fracture
[2024-09-13 15:54] LABS: Basophils % (Auto) 0 % (0-2.5); Eosinophils # (Auto) 0.2 Thou/mm3 (0.0-0.5); Eosinophils % (Auto) 2 % (0-10); Hematocrit 36.5 % (41.0-53.0); Hemoglobin 11.7 g/dL (13.5-16.0); Immature Granulocytes % (Auto) 1 % (0-0); Immature Granulocytes Auto 0.04 Thou/mm3 (0.00-0.00); Lymphocytes # (Auto) 1.9 Thou/mm3 (1.0-4.8); Lymphocytes % (Auto) 22 % (10-50); Mean Corpuscular HGB Conc 32.1 g/dl (31.0-37.0); Mean Corpuscular Hemoglobin 30.1 pg (25.0-35.0); Mean Corpuscular Volume 94 fL (80-100); Monocytes # (Auto) 0.8 Thou/mm3 (0.0-0.8); Monocytes % (Auto) 9 % (0-12); Neutrophils # (Auto) 5.8 Thou/mm3 (1.8-7.7); Neutrophils % (Auto) 67 % (37-80); Nucleated Red Blood Cell % 0 /100 WBC (0); Platelet Count 160 Thou/mm3 (140-440); RDW Standard Deviation 53.3 fL (35.1-43.9); Red Blood Count 3.89 Miln/mm3 (4.50-5.90); White Blood Count 8.7 Thou/mm3 (3.8-10.6)
[2024-09-13 16:10] LABS: B-Type Natriuretic Peptide 528 pg/mL (0-100)
[2024-09-13 16:17] LABS: INR 1.1 (0.9-1.3); Partial Thromboplastin Time 26.8 Seconds (22.0-36.0); Prothrombin Time 11.6 Seconds (9.0-12.2)
[2024-09-13 16:44] LABS: Alanine Aminotransferase 11 U/L (10-49); Albumin, Serum 4.4 gm/dL (3.4-4.8); Albumin/Globulin Ratio 1.2 (1.2-2.2); Alkaline Phosphatase 190 U/L (46-116); Anion Gap 8 (7-16); Aspartate Amino Transferase 41 U/L (0-34); BUN/Creatinine Ratio 7 Ratio (12-20); Bilirubin,Total 0.4 mg/dL (0.3-1.2); Blood Urea Nitrogen 35 mg/dL (9-23); Carbon Dioxide 28.6 mMol/L (20.0-31.0); Chloride 97 mMol/L (98-107); Creatinine (Component) 4.8 mg/dL (0.6-1.3); Globulin 3.8 gm/dL (2.3-3.5); Glucose 185 mg/dL (74-106); LDH (Lactate Dehydrogenase) 290 U/L (120-246); Magnesium 2.4 mg/dL (1.6-2.6); Osmolality,Calculated 281 (275-295); Potassium 5.6 mMol/L (3.4-5.1); Sodium 134 mMol/L (136-145); Total Protein 8.2 gm/dL (5.7-8.2); Troponin I < 0.020 ng/mL (0.0-0.045); eGFR 12 See Note
[2024-09-13] MEDS: ACETAMINOPHEN 500 MG TABLET 1000 MG PO (17:05)
[2024-09-13] MEDS: CALCIUM GLUCONATE 10% INJ 1 GM/10 ML VIAL IV (17:42)
[2024-09-13] MEDS: DEXTROSE 50%-WATER INJ 50 ML SYRINGE 25 ML IV (17:43)
[2024-09-13] MEDS: INSULIN HUM REGULAR 1 UNIT/0.01 ML (PER UNIT) 5 UNIT IV (17:46)
[2024-09-13 18:26] LABS: Free T4 (Free Thyroxine) 0.96 ng/dL (0.89-1.76); Magnesium 2.3 mg/dL (1.6-2.6); Thyroid Stimulating Hormone 6.72 uIU/mL (0.55-4.78)
[2024-09-13 19:36] LABS: Potassium 5.9 mMol/L (3.4-5.1)
[2024-09-13 20:27] LABS: Potassium 5.6 mMol/L (3.4-5.1)
--- NOTE | 2024-09-13 22:26 | ESHP_ITS ---
Documentation for date of: 09/13/24 HPI History of Present Illness Chief complaint: Fall, complete heart block History of present illness: 74-year-old male with past medical history of ESRD on HD () secondary to diabetic nephropathy, bradycardia, insulin-dependent type 2 diabetes, hyperlipidemia, hypertension presenting to the ED on 09/13 with episode of severe dizziness followed by a fall. Patient states that the sensation lasted for one-two seconds where he felt the entire room spinning and lost balance and fell backwards. He fell infront of his who apparently saw the entire episode as it happened. Patient denies any concerning cardiac symptoms during this episode; denies any chest pain/tightness, shortness of breath, palpitations, lower extremity edema, orthopnea or PND. Patient follows up with Dr. Chand for dialysis needs; last session was Satuday 09/12 and there were no acute complications post dialysis. Of note, patient was admitted in the past for bradycardia but at that time was not a candidate for PM placement secondary to anterior chest wall scarring due to previous dialysis catheter insertions. Patient was told to follow-up with Pharmaceutical Physician, Dr. Orantes, who saw the patient on 09/08 in the clinic and told him to follow-up sometime in October. Of note, cardiology recommended leadless Micra pacemaker for the patient if he ever became symptomatic. Patient has been having a difficult time and has been grieving the loss of her daughter who passed on 09/02 secondary to a motor vehicle accident. Past medical history: As noted above Past surgical history: Patient with history of AV fistula on the right arm which is completely clotted and multiple permacath placement on the left side as well as right-sided dialysis catheters Allergies: NKDA Medications: Pending med rec Family history: Positive for hypertension and type-2 diabetes mellitus Social history: Lives in [place] with his and denies any kind of alcohol, tobacco or drug use. Patient is legally blind in the right eye and used to work in the [employer]. ROS: All 12 systems assessed and the patient denies unless otherwise stated in HPI In the ED, patient presented hypertensive (127/75), heart rate initially 69 but went as low as 30-35, respiratory rate 19, afebrile satting 99 on room air. Pertinent lab findings included hemoglobin 11.7, MCV 94, platelet 160, sodium 134, potassium 5.6, BUN 35, creatinine 4.8, magnesium 2.3, troponin within normal, BNP 528, free T40.96. Cervical, head, lumbar, thoracic CT were negative for any acute processes; EKG did show signs of complete heart block. Patient will be admitted for observation and management of symptomatic bradycardia; cardiology, Dr. Orantes, is aware of the patient's status and will most likely consider placement of leadless pacemaker. Patient will be admitted to ICU secondary to requiring transcutaneous pacing and IV dopamine for a 5-second sinus pause which occurred in the ED. Dr. Chand has also been contacting regarding the need for emergent dialysis secondary to hyperkalemia heart arrhythmia. Exam Vital Signs Temp Pulse Resp BP Pulse Ox O2 Del Method 97.6 F 67 18 147/57 H 96 Room Air 09/13/24 19:24 09/13/24 20:30 09/13/24 20:30 09/13/24 20:30 09/13/24 20:30 09/13/24 19:24 Narrative Exam Physical Exam: GENERAL: Awake, appears stated age, answering questions appropriately, L-vasc cath noted HEENT: NC/AT. Moist mucosa. PERRLA/EOMI. R-eye blindness. CARDIO: Bradycardia, no obvious murmurs, no JVD. PULM: No coughing or visible SOB. Lungs CTA B/L. GI: Abdomen soft, NT/ND, +BS. 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 No wounds/rashes/edema. +Pedal pulses present B/L. NEURO: Oriented x3, audiovisual aids technician strength 5/5, Moves extremities x4. Results: Labs 09/13/24 15:27 09/13/24 20:12 Labs: Short CBC 09/13/24 Range/Units 15: WBC 8.7 (3.8-10.6) Thou/mm3 Hgb 11.7 L (13.5-16.0) g/dL Hct 36.5 L (41.0-53.0) % Plt Count 160 D (140-440) Thou/mm3 BMP 09/13/24 09/13/24 09/13/24 15:21 17:38 20:12 Sodium 134 L Potassium 5.6 H 5.9 H 5.6 H Chloride 97 L Carbon Dioxide 28.6 BUN 35 H Creatinine 4.8 H* Glucose 185 H Calcium 10.0 Cardiac Enzymes 09/13/24 Range/Units 15:21 Troponin I < 0.020 (0.0-0.045) ng/mL Liver Function 09/13/24 Range/Units 15:21 Total Bilirubin 0.4 (0.3-1.2) mg/dL AST 41 H (0-34) U/L ALT 11 (10-49) U/L Alkaline Phosphatase 190 H (46-116) U/L Albumin 4.4 (3.4-4.8) gm/dL Quality Measures Quality Measures VTE prophylaxis Advance care planning discussed with:: patient Medications Home Medications and Allergies Home Medications ?Medication ?Instructions ?Recorded ?Confirmed ?Type glipizide 10 mg tablet 10 mg PO BID ##180 10/30/17 08/29/24 History midodrine 10 mg tablet 10 mg PO QID ##180 10/30/17 09/13/24 History atorvastatin 10 mg tablet 10 mg PO HS 11/17/18 08/29/24 History cholecalciferol (vitamin D3) 25 1,000 unit PO QDAY 11/17/18 08/29/24 History mcg (1,000 unit) capsule (Vitamin D3) gabapentin 100 mg capsule 100 mg PO BID 08/06/19 09/13/24 History sevelamer carbonate 800 mg tablet 1,600 mg PO TID 02/24/20 09/13/24 History (Renvela) cetirizine 10 mg tablet 10 mg PO QDAY PRN Allergic Symptoms 01/17/21 08/29/24 History hydroxyzine HCl 25 mg tablet 25 mg PO HSPRN PRN Itching 01/17/21 08/29/24 History insulin detemir U-100 100 unit/mL See Rx Instructions .Route .COMPLEX 01/17/21 08/29/24 History (3 mL) subcutaneous pen (Levemir FlexTouch U-100 Insulin) ondansetron HCl 4 mg tablet 4 mg PO BID PRN Nausea 01/17/21 09/13/24 History pantoprazole 40 mg tablet,delayed 40 mg PO QDAY 01/17/21 08/29/24 History release ropinirole 1 mg tablet 2 mg PO BID 01/17/21 09/13/24 History semaglutide 0.25 mg or 0.5 mg (2 0.5 mg subcut QWEEK 01/17/21 08/29/24 History mg/1.5 mL) subcutaneous pen injector (Ozempic) montelukast 10 mg tablet 10 mg PO DAILY 04/05/24 09/13/24 History sitagliptin phosphate 50 mg tablet 50 mg PO DAILY 04/05/24 09/13/24 History (Januvia) diphenoxylate-atropine 2.5 1 tab PO 2XD 09/13/24 09/13/24 History mg-0.025 mg tablet lactulose 10 gram/15 mL oral 15 ml PO 1XD 09/13/24 09/13/24 History solution (Constulose) nutrition tx glu 1 ea PO 3XD 09/13/24 09/13/24 History intol,lac-free,soy-fiber 0.07 gram-0.8 kcal/mL liquid (Boost Glucose Control) sucroferric oxyhydroxide 500 mg 500 mg PO 1XD 09/13/24 09/13/24 History chewable tablet (Velphoro) vitamin B complex-vitamin C-folic 1 tab PO 1XD 09/13/24 09/13/24 History acid 0.8 mg tablet (Nephro-Chanell) Allergies Allergy/AdvReac Type Severity Reaction Status Date / Time diphenhydramine Allergy Mild ANXIETY Verified 08/29/24 09:13 Visit Medications Acetaminophen (Acetaminophen 325 Mg Tablet) 650 mg PO Q6H PRN PRN Reason: Pain 1-3 and/or Fever >100.1 Stop: 10/13/24 22:19 Atropine Sulfate (Atropine Sulf Inj 1 Mg/Ml Vial) 0.5 mg IVP PRN PRN PRN Reason: symptomatic bradycardia; HR<30 Stop: 10/13/24 22:22 Dextrose (Dextrose 50%-Water Inj 50 Ml Syringe) 25 ml IV Q15MIN PRN PRN Reason: BG 50-70 responsive npo pt Stop: 10/13/24 22:19 Dextrose (Dextrose 50%-Water Inj 50 Ml Syringe) 50 ml IV Q15MIN PRN PRN Reason: BG <50 OR BG <70 & pt unresponsive Stop: 10/13/24 22:19 Glucagon (Glucagon Inj 1 Mg Vial) 1 mg IM Q15MIN PRN PRN Reason: BG <70, and no IV access Heparin Sodium (Porcine) (Heparin Sod Inj 5000 Unit/Ml Vial) 5,000 unit SC Q12HR [facility] Stop: 09/28/24 08:59 Insulin Human Lispro (Insulin Lispro (Admelog) 1 Unit/0.01 Ml Unit) 0 unit SC ACHS [facility]; Protocol Stop: 10/14/24 07:29 Ondansetron HCl (Ondansetron Inj 2 Mg/Ml Inj 2 Ml) 4 mg IV Q6H PRN; Protocol PRN Reason: NAUSEA OR VOMITING Stop: 10/13/24 22:19 Sennosides (Senna Tablet) 1 tab PO QDAY [facility]; Protocol Stop: 10/14/24 08:59 Discontinued Medications Acetaminophen (Acetaminophen 500 Mg Tablet) 1,000 mg PO X1 ONE Stop: 09/13/24 15:49 Last Admin: 09/13/24 17:05 Dose: 1,000 mg Calcium Gluconate (Calcium Gluconate 10% Inj 1 Gm/10 Ml Vial) 1 gm IV X1 ONE Stop: 09/13/24 17:22 Last Admin: 09/13/24 17:42 Dose: 1 gm Dextrose (Dextrose 50%-Water Inj 50 Ml Syringe) 25 ml IV X1 ONE Stop: 09/13/24 17:23 Last Admin: 09/13/24 17:43 Dose: 25 ml Insulin Human Regular (Insulin Hum Regular 1 Unit/0.01 Ml (Per Unit)) 5 unit IV X1 ONE Stop: 09/13/24 17:23 Last Admin: 09/13/24 17:46 Dose: 5 unit Assessment & Plan Plan 74-year-old male with past medical history of ESRD on HD () secondary to diabetic nephropathy, bradycardia, insulin-dependent type 2 diabetes, hyperlipidemia, hypertension presenting to the ED on 09/13 with episode of severe dizziness followed by a fall will be admitted for observation and management of symptomatic bradycardia; cardiology, Dr. Orantes, is aware of the patient's status and will most likely consider placement of leadless pacemaker. Neuro no acute process CV #Symptomatic Bradycardia #2nd Degree AV Block, Mobitz type II vs. Complete Heart Block #Sinus Pause Likely 2/2 to electrolyte abnormalities and ESRD status Presenting with episode of dizziness and falling backwards; denies concerning cardiac symptoms as noted in HPI Recent echo from March 2024 was reviewed and it showed normal LV function, normal RV function. Mild aortic valve sclerosis without stenosis In the ED, patient's HR initially fluctuated between 30-40 Patient had episode of sinus pause of 5 seconds while in the process of being admitted Plan: Patient will likely require leadless PM vs. temporary pacemaker Transcutaneous pacing IV Dopamine Treat likely precipitating factor; hyperkalemia as noted below Dr. Orantes, Cardiology, following - will do transvenous pacing if necessary #Hypertension #Hyperlipidemia Chronic medical problems not pertinent to following admission Patient not on medications for the following conditions He takes midodrine on dilaysis days only if his BP is low Plan: Monitor blood pressure while in the hospital Respiratory No acute process Renal #ESRD on HD (//) #Diabetic Nephropathy Has been on dialysis for 16 years secondary to diabetic nephropathy He follows up with Dr. 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 Chand will follow the patient while admitted Possible dialysis session for hyperkalemia causing heart arrhythmia #Hyperkalemia Patient presenting with elevated potassium; last dialysis session as noted above In the ED, given 1g of calcium gluconate and IV insulin with dextrose Plan: Ordered x1 of 60mg Kayexalate (patient vomited) Ordered x1 of 15mg of Kayexalate Follow-up morning labs Additional x1 1g of calcium gluconate ordered Reglan 5 mg IV added; patient's QTc ~450 Endocrine #Insulin-dependent Type 2 Diabetes Mellitus Last A1c of 5.9 08/30 Patient apparently uses insulin as needed; roughly 20u of levemir Plan: SSI #Diabetic Nephropathy #Restless Leg Syndrome #Elevated TSH Patient is on Gabapentin 100mg po bid and Ropinirole 2mg po bid Patient has elevated TSH on prior admissions but T4 has been wnl Plan: Restart home medications after med rec completed GI No acute process ID No acute process Heme #Normocytic Anemia #Anemia of Chronic Disease Patient has anemia secondary to ESRD status Past iron panels have shown decreased iron but elevated ferritin Patient's current Hgb within acceptable level for dialysis patient; 11.7 Does not require EPO at this time Plan: Monitor with AM labs Follow-up with nephrology Hospital Management: Lines - PIV, L-sided vasc cath Bowel - Senna Diet - NPO after midnight for possible PM GI prophylaxis - protonix DVT prophylaxis - Subq Heparin Dispo - Symptomatic bradycardia; cardiology consulted - appreciate recommendations Code - Full Patient seen and assessed with attending Dr. Fischer and senior resident Dr. Davi Garcia, PGY-1 Attending Provider Attestation/Addendum 75-year-old male patient with end-stage renal disease on hemodialysis. He was dialyzed yesterday. He is a patient of Dr. Chand The patient was admitted for symptomatic bradycardia (heart block). Laboratory results showed high potassium level. The patient was given calcium gluconate, IV & insulin in the ER. His blood pressure is stable.
--- NOTE | 2024-09-13 23:21 | PC.NURSE ---
Pt moved to room 4 and pacer pads placed on pt. Hospitalist team notified as well as copra processor, Pt being paced at 70 bpm, and 20 mA. Pt HR dropped to 20 and pt had a 7 second pause. Pt states that he felt like he was going to pass out.
[2024-09-13] MEDS: DOPamine/D5w 400 MG IVPB 400 MG/250 ML BAG 10.546 MG IV (23:35)
[2024-09-13] MEDS: SOD POLYSTYRENE SULFON SUSP 15 GM/60 ML BTL 60 GM PO (23:40)
[2024-09-13] MEDS: ONDANSETRON INJ 2 MG/ML INJ 2 ML 4 MG IV (23:58)
[2024-09-14] VITALS (76 sets, daily range): BP systolic 82–185; BP diastolic 39–108; PULSE 33–114; RESP 2–25; TEMP 35.9–36.8; O2SAT 79–100
[2024-09-14] MEDS: LORazepam 2 MG/ML VIAL 0.5 MG IVP ×4 (00:27→23:40)
[2024-09-14] MEDS: CALCIUM GLUCONATE 10% INJ 1 GM/10 ML VIAL IV (00:37)
--- NOTE | 2024-09-14 00:49 | EKG_ITS ---
[facility] Test Date: 2024-09-15 Pat Name: ABRAHAM ANN Department: Room: [facility] Gender: Male Scarf Gluer: STEFFANY : 1950 Requested By: Augusta Tomlinson Order Number: [id number] Reading MD: Augusta Tomlinson Measurements Intervals [place] Rate: 60 P: 61 MD: 295 QRS: 96 QRSD: 157 T: 3 QT: 490 QTc: 492 Interpretive Statements SINUS RHYTHM WITH MARKED SINUS ARRHYTHMIA WITH FIRST DEGREE AV BLOCK RIGHT BUNDLE BRANCH BLOCK Compared to ECG 09/13/2024 16:28:48 First degree AV block now present Right bundle-branch block now present Sinus bradycardia no longer present Left bundle-branch block no longer present /store/S0/[id number].pdf
[2024-09-14 00:54] LABS: Potassium 5.3 mMol/L (3.4-5.1)
[2024-09-14] MEDS: METOCLOPRAMIDE INJ 5 MG/ML VIAL 2 ML IVP (01:05)
[2024-09-14 04:16] LABS: Hepatitis A Antibody IgM Non Reactive (Non React); Hepatitis B Core Antibody IgM Non Reactive (Non React); Hepatitis B Surface Ab Reactive (Immune) (Immune); Hepatitis B Surface Antigen Non Reactive (Non React); Hepatitis C Antibody Non Reactive (Non React)
--- NOTE | 2024-09-14 05:00 | PC.NURSE ---
Addendum entered by Branden Stinson RN 09/14/24 05:14: MD PATRICIO w/ order to end tx at this time order carried out. Original Note: Pt moved making both arterial and venous pressure increase and machine alarm w/ no COAL CARRIER response despite all interventions, tx paused all blood returned. MD PATRICIO notified for orders.
--- NOTE | 2024-09-14 05:01 | PC.NURSE ---
S/T Dr. Prasad and reported that the pt is now sustaining a HR in the low 100's. No new orders
[2024-09-14 05:31] LABS: Basophils % (Auto) 0 % (0-2.5); Eosinophils # (Auto) 0.2 Thou/mm3 (0.0-0.5); Eosinophils % (Auto) 2 % (0-10); Hematocrit 38.3 % (41.0-53.0); Hemoglobin 12.3 g/dL (13.5-16.0); Immature Granulocytes % (Auto) 0 % (0-0); Immature Granulocytes Auto 0.02 Thou/mm3 (0.00-0.00); Lymphocytes # (Auto) 1.8 Thou/mm3 (1.0-4.8); Lymphocytes % (Auto) 22 % (10-50); Mean Corpuscular HGB Conc 32.1 g/dl (31.0-37.0); Mean Corpuscular Hemoglobin 29.9 pg (25.0-35.0); Mean Corpuscular Volume 93 fL (80-100); Monocytes # (Auto) 0.6 Thou/mm3 (0.0-0.8); Monocytes % (Auto) 8 % (0-12); Neutrophils # (Auto) 5.6 Thou/mm3 (1.8-7.7); Neutrophils % (Auto) 68 % (37-80); Nucleated Red Blood Cell % 0 /100 WBC (0); Platelet Count 171 Thou/mm3 (140-440); RDW Standard Deviation 53.3 fL (35.1-43.9); Red Blood Count 4.11 Miln/mm3 (4.50-5.90); White Blood Count 8.3 Thou/mm3 (3.8-10.6)
[2024-09-14] MEDS: HEPARIN SOD INJ 1000 UNIT/ML VIAL 10 ML 3900 UNIT INDWELLCAT (05:34)
[2024-09-14 05:46] LABS: INR 1.1 (0.9-1.3); Prothrombin Time 11.8 Seconds (9.0-12.2)
[2024-09-14 06:06] LABS: Alanine Aminotransferase 30 U/L (10-49); Albumin, Serum 4.5 gm/dL (3.4-4.8); Albumin/Globulin Ratio 1.1 (1.2-2.2); Alkaline Phosphatase 199 U/L (46-116); Anion Gap 9 (7-16); Aspartate Amino Transferase 26 U/L (0-34); BUN/Creatinine Ratio 7 Ratio (12-20); Bilirubin,Total 0.6 mg/dL (0.3-1.2); Blood Urea Nitrogen 17 mg/dL (9-23); Calcium 9.6 mg/dL (8.3-10.6); Calcium (Corrected) 9.6 mg/dL (8.5-10.1); Carbon Dioxide 27.5 mMol/L (20.0-31.0); Chloride 99 mMol/L (98-107); Creatinine (Component) 2.6 mg/dL (0.6-1.3); Estimated Creatinine Clearance 20.4 mL/min (>60); Globulin 4.1 gm/dL (2.3-3.5); Glucose 143 mg/dL (74-106); Magnesium 2.1 mg/dL (1.6-2.6); Osmolality,Calculated 273 (275-295); Phosphorous 2.1 mg/dL (2.4-5.1); Potassium 3.9 mMol/L (3.4-5.1); Sodium 135 mMol/L (136-145); Total Protein 8.6 gm/dL (5.7-8.2); eGFR 25 See Note
--- NOTE | 2024-09-14 08:58 | PD.RESCONSUL ---
HPI Data of Consult Patient: known to practice within the last 3 years Consult date: 09/14/24 Requesting Physician: Anibal Fischer MD Admitting Provider: Anibal Fischer MD Attending Provider: Anibal Fischer MD Primary Care Provider: Keisha Chand MD Consult Narrative Reason for consult: ESRD History of present illness: Mr Shah is 74-year-old male with past medical history of ESRD on HD (//) secondary to diabetic nephropathy, bradycardia, insulin-dependent type 2 diabetes, hyperlipidemia, hypertension presenting to the ED on 09/13 with episode of severe dizziness followed by a fall. Patient states that the sensation lasted for one-two seconds where he felt the entire room spinning and lost balance and fell backwards. He fell infront of his who apparently saw the entire episode as it happened. Patient denies any concerning cardiac symptoms during this episode; denies any chest pain/tightness, shortness of breath, palpitations, lower extremity edema, orthopnea or PND. His last dialysis session was Satuday 09/12 and there were no acute complications post dialysis. Of note, patient was admitted in the past for bradycardia but at that time was not a candidate for PM placement secondary to anterior chest wall scarring due to previous dialysis catheter insertions. Patient was told to follow-up with Freezer Tunnel Operator, Dr. Orantes, who saw the patient on 09/08 in the clinic and told him to follow-up sometime in October. Of note, cardiology recommended leadless Micra pacemaker for the patient if he ever became symptomatic. Patient reported to be having a difficult time and has been grieving the loss of her daughter who passed on 09/02 secondary to a motor vehicle accident. In the ED, patient presented hypertensive (127/75), heart rate initially 69 but went as low as 30-35, respiratory rate 19, afebrile saturating 99 on room air. Pertinent lab findings included hemoglobin 11.7, MCV 94, platelet 160, sodium 134, potassium 5.6, BUN 35, creatinine 4.8, magnesium 2.3, troponin within normal, BNP 528, free T40.96. Cervical, head, lumbar, thoracic CT were negative for any acute processes; EKG did show signs of complete heart block. Home Medications: Diphenoxylate?atropine, gabapentin, Januvia, lactulose, midodrine, montelukast, boost glucose control, on incentive, ropinirole, sevelamer, Velphoro, Nephro-Chanell multivitamin Patient admitted for management of symptomatic bradycardia; dental professional, Dr. Orantes, was made aware of the patient's status and will most likely consider placement of leadless pacemaker. Patient will be admitted to ICU secondary to requiring transcutaneous pacing and IV dopamine for a 5-second sinus pause which occurred in the ED. 09/14/2024: Patient seen at bedside, currently in ICU, on admission potassium was 5.6, increased to 5.9 was treated with hyperkalemia protocol, no improvement received hemodialysis treatment in a.m. 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 cc:: cc: Anibal Fischer MD Review of Systems Review of Systems Narrative Review of Systems: ROS: -CONSTITUTIONAL: Denies weight loss, fever and chills. Positive for dizziness -HEENT: Denies changes in vision and hearing. -RESPIRATORY: Denies SOB and cough. -CV: Denies palpitations and Chest Pain. Currently bradycardic. -GI: Denies abdominal pain, nausea, vomiting,constipation and diarrhea. -: Denies dysuria and urinary frequency. -MSK: Denies myalgia and joint pain. -SKIN: Denies rash and pruritus. -NEUROLOGICAL: Denies headache. -PSYCHIATRIC: Denies anxiety and depression. Past Medical History Past Medical History NEUROLOGIC: Negative Neurological Disorders CARDIAC: Positive Cardiac Disorders, Hypercholesterolemia, Hypertension and Hypotension; Negative Congestive Heart Failure RESPIRATORY: Positive Pneumonia; Negative Chronic Obstructive Pulmonary Disease (COPD) GASTROINTESTINAL: Positive Gastrointestinal Disorders and Gastroesophageal Reflux Disease; Negative Hepatitis GENITOURINARY: Positive Genitourinary Disorders, Renal Disease, Kidney Stones and Dialysis MUSCULOSKELETAL: Positive Musculoskeletal Disorders, Arthritis, Degenerative Disk Disease and Degenerative Joint Disease ENT: Positive Blind and Deafness ENDOCRINE: Positive Endocrine Disorders, Diabetes Mellitus Type 2 and Hypothyroidism; Negative Diabetes Mellitus Type 1 HEMATOLOGIC: Negative Blood Disorders PSYCHO/SOCIAL: Positive Anxiety OTHER HISTORY: Positive Hospitalization and Falls; Negative Autoimmune Disease, MRSA, Chicken Pox or Cancer Family History FAMILY HISTORY: Positive Family Cancer and Family Surgery; Negative Family Psychiatric Problems, Family Respiratory Disorders, Family Cardiac Disorders, Family Gastrointestinal Problems or Family Anesthesia Reaction Surgical History SURGICAL: Positive Amputation Social History SMOKING STATUS: Former smoker SUBSTANCE USE: does not use Past Medical History Comments PMH COMMENT: Past medical history: As noted above Past surgical history: Patient with history of AV fistula on the right arm which is completely clotted and multiple permacath placement on the left side as well as right-sided dialysis catheters Allergies: NKDA Medications: Pending med rec Family history: Positive for hypertension and type-2 diabetes mellitus Social history: Lives in [place] with his and denies any kind of alcohol, tobacco or drug use. Patient is legally blind in the right eye and used to work in the [employer]. Exam Vital Signs Temp Pulse Resp BP Pulse Ox O2 Del Method O2 Flow Rate 98.2 F 96 12 131/60 H 98 Nasal Cannula 2 09/14/24 06:13 09/14/24 06:30 09/14/24 06:30 09/14/24 06:30 09/14/24 06:30 09/14/24 04:15 09/14/24 05:15 Narrative Exam General: Alert and oriented x3. In no acute distress. Eyes: Legally blind right eye and mostly sees shadows with left eye HEENT: Atraumatic, normocephalic. No JVD noted. Mucosa moist. Cardiovascular: Normal S1 and S2. Normal rate and regular rhythm on dopamine drip. Respiratory: No respiratory distress. Lungs are clear to auscultation bilaterally but decreased at the bases. No wheezing or crackles heard. Abdomen: Soft, nontender, nondistended. Skin: No rash. Warm to touch. Scars on the right side chest from previous tunneled dialysis catheter placement, left chest tunneled dialysis catheter in place, right failed AV fistula scar noted Musculoskeletal: No gross injuries. Able to move all 4 extremities. Neuro: Alert and oriented x3. No focal neuro deficits. Psych: Normal affect and mood Results Labs 09/14/24 04:53 09/14/24 10:24 Labs: Short CBC 09/13/24 09/14/24 Range/Units 15:27 04:53 WBC 8.7 8.3 (3.8-10.6) Thou/mm3 Hgb 11.7 L 12.3 L (13.5-16.0) g/dL Hct 36.5 L 38.3 L (41.0-53.0) % Plt Count 160 D 171 (140-440) Thou/mm3 BMP 09/13/24 09/13/24 09/13/24 15:21 17:38 20:12 Sodium 134 L Potassium 5.6 H 5.9 H 5.6 H Chloride 97 L Carbon Dioxide 28.6 BUN 35 H Creatinine 4.8 H* Glucose 185 H Calcium 10.0 09/14/24 09/14/24 00:35 04:53 Sodium 135 L Potassium 5.3 H 3.9 D Chloride 99 Carbon Dioxide 27.5 BUN 17 Creatinine 2.6 H D Glucose 143 H Calcium 9.6 Cardiac Enzymes 09/13/24 Range/Units 15:21 Troponin I < 0.020 (0.0-0.045) ng/mL Liver Function 09/13/24 09/14/24 Range/Units 15:21 04:53 Total Bilirubin 0.4 0.6 (0.3-1.2) mg/dL AST 41 H 26 (0-34) U/L ALT 11 30 (10-49) U/L Alkaline Phosphatase 190 H 199 H (46-116) U/L Albumin 4.4 4.5 (3.4-4.8) gm/dL Quality Measures Quality Measures VTE prophylaxis Advance care planning discussed with:: patient Medications Home Medications and Allergies Home Medications ?Medication ?Instructions ?Recorded ?Confirmed ?Type glipizide 10 mg tablet 10 mg PO BID ##180 10/30/17 08/29/24 History midodrine 10 mg tablet 10 mg PO QID ##180 10/30/17 09/14/24 History atorvastatin 10 mg tablet 10 mg PO HS 11/17/18 08/29/24 History cholecalciferol (vitamin D3) 25 1,000 unit PO QDAY 11/17/18 08/29/24 History mcg (1,000 unit) capsule (Vitamin D3) gabapentin 100 mg capsule 100 mg PO BID 08/06/19 09/14/24 History sevelamer carbonate 800 mg tablet 1,600 mg PO TID 02/24/20 09/14/24 History (Renvela) cetirizine 10 mg tablet 10 mg PO QDAY PRN Allergic Symptoms 01/17/21 08/29/24 History hydroxyzine HCl 25 mg tablet 25 mg PO HSPRN PRN Itching 01/17/21 08/29/24 History insulin detemir U-100 100 unit/mL See Rx Instructions .Route .COMPLEX 01/17/21 08/29/24 History (3 mL) subcutaneous pen (Levemir FlexTouch U-100 Insulin) ondansetron HCl 4 mg tablet 4 mg PO BID PRN Nausea 01/17/21 09/13/24 History pantoprazole 40 mg tablet,delayed 40 mg PO QDAY 01/17/21 08/29/24 History release ropinirole 1 mg tablet 2 mg PO BID 01/17/21 09/14/24 History semaglutide 0.25 mg or 0.5 mg (2 0.5 mg subcut QWEEK 01/17/21 08/29/24 History mg/1.5 mL) subcutaneous pen injector (Ozempic) montelukast 10 mg tablet 10 mg PO DAILY 04/05/24 09/14/24 History sitagliptin phosphate 50 mg tablet 50 mg PO DAILY 04/05/24 09/14/24 History (Januvia) diphenoxylate-atropine 2.5 1 tab PO 2XD 09/13/24 09/14/24 History mg-0.025 mg tablet lactulose 10 gram/15 mL oral 15 ml PO 1XD 09/13/24 09/13/24 History solution (Constulose) nutrition tx glu 1 ea PO 3XD 09/13/24 09/13/24 History intol,lac-free,soy-fiber 0.07 gram-0.8 kcal/mL liquid (Boost Glucose Control) sucroferric oxyhydroxide 500 mg 500 mg PO 1XD 09/13/24 09/13/24 History chewable tablet (Velphoro) vitamin B complex-vitamin C-folic 1 tab PO 1XD 09/13/24 09/14/24 History acid 0.8 mg tablet (Nephro-Chanell) Allergies Allergy/AdvReac Type Severity Reaction Status Date / Time diphenhydramine Allergy Mild ANXIETY Verified 08/29/24 09:13 Visit Medications Acetaminophen (Acetaminophen 325 Mg Tablet) 650 mg PO Q6H PRN PRN Reason: Pain 1-3 and/or Fever >100.1 Stop: 10/13/24 22:19 Atropine Sulfate (Atropine Sulf Inj 1 Mg/Ml Vial) 0.5 mg IVP PRN PRN PRN Reason: symptomatic bradycardia; HR<30 Stop: 10/13/24 22:22 Dextrose (Dextrose 50%-Water Inj 50 Ml Syringe) 25 ml IV Q15MIN PRN PRN Reason: BG 50-70 responsive npo pt Stop: 10/13/24 22:19 Dextrose (Dextrose 50%-Water Inj 50 Ml Syringe) 50 ml IV Q15MIN PRN PRN Reason: BG <50 OR BG <70 & pt unresponsive Stop: 10/13/24 22:19 Glucagon (Glucagon Inj 1 Mg Vial) 1 mg IM Q15MIN PRN PRN Reason: BG <70, and no IV access Heparin Sodium (Porcine) (Heparin Sod Inj 5000 Unit/Ml Vial) 5,000 unit SC Q12HR FRAN Stop: 09/28/24 08:59 Heparin Sodium (Porcine) (Heparin Sod Inj 1000 Unit/Ml Vial 10 Ml) 3,900 unit INDWELLCAT PRN PRN PRN Reason: DIALYSIS Stop: 09/28/24 05:22 Last Admin: 09/14/24 05:34 Dose: 3,900 unit Dopamine HCl/Dextrose (Intropin In D5w Ivpb) 400 mg in 250 mls @ 10.546 mls/hr IV .[id number] [facility]; Protocol Stop: 10/13/24 23:23 Last Titration: 09/14/24 05:32 Dose: 5 mcg/kg/min, 10.546 mls/hr Albumin Human (Albuminar-25 Ivpb) 25 gm in 100 mls @ 100 mls/min IV PRN PRN PRN Reason: DIALYSIS Insulin Human Lispro (Insulin Lispro (Admelog) 1 Unit/0.01 Ml Unit) 0 unit SC ACHS [facility]; Protocol Stop: 10/14/24 07:29 Ondansetron HCl (Ondansetron Inj 2 Mg/Ml Inj 2 Ml) 4 mg IV Q6H PRN; Protocol PRN Reason: NAUSEA OR VOMITING Stop: 10/13/24 22:19 Last Admin: 09/13/24 23:58 Dose: 4 mg Sennosides (Senna Tablet) 1 tab PO QDAY [facility]; Protocol Stop: 10/14/24 08:59 Discontinued Medications Acetaminophen (Acetaminophen 500 Mg Tablet) 1,000 mg PO X1 ONE Stop: 09/13/24 15:49 Last Admin: 09/13/24 17:05 Dose: 1,000 mg Calcium Gluconate (Calcium Gluconate 10% Inj 1 Gm/10 Ml Vial) 1 gm IV X1 ONE Stop: 09/13/24 17:22 Last Admin: 09/13/24 17:42 Dose: 1 gm Calcium Gluconate (Calcium Gluconate 10% Inj 1 Gm/10 Ml Vial) 1 gm IV X1 ONE Stop: 09/14/24 00:01 Last Admin: 09/14/24 00:37 Dose: 1 gm Dextrose (Dextrose 50%-Water Inj 50 Ml Syringe) 25 ml IV X1 ONE Stop: 09/13/24 17:23 Last Admin: 09/13/24 17:43 Dose: 25 ml Insulin Human Regular (Insulin Hum Regular 1 Unit/0.01 Ml (Per Unit)) 5 unit IV X1 ONE Stop: 09/13/24 17:23 Last Admin: 09/13/24 17:46 Dose: 5 unit Lorazepam (Lorazepam 0.5 Mg Tablet) 0.5 mg PO X1 ONE Stop: 09/14/24 00:07 Last Admin: 09/14/24 00:45 Dose: Not Given Lorazepam (Lorazepam 2 Mg/Ml Vial) 0.5 mg IVP X1 ONE Stop: 09/14/24 00:16 Last Admin: 09/14/24 00:27 Dose: 0.5 mg Lorazepam (Lorazepam 2 Mg/Ml Vial) 0.5 mg IVP X1 ONE Stop: 09/14/24 01:54 Last Admin: 09/14/24 01:59 Dose: 0.5 mg Lorazepam (Lorazepam 2 Mg/Ml Vial) 0.5 mg IVP X1 ONE Stop: 09/14/24 06:35 Last Admin: 09/14/24 06:37 Dose: 0.5 mg Metoclopramide HCl (Metoclopramide Inj 5 Mg/Ml Vial 2 Ml) 5 mg IVP X1 ONE; Protocol Stop: 09/14/24 00:55 Last Admin: 09/14/24 01:05 Dose: 5 mg Sodium Polystyrene Sulfonate (Sod Polystyrene Sulfon Susp 15 Gm/60 Ml Btl) 60 gm PO X1 ONE Stop: 09/13/24 23:24 Last Admin: 09/13/24 23:40 Dose: 60 gm Sodium Polystyrene Sulfonate (Sod Polystyrene Sulfon Susp 15 Gm/60 Ml Btl) 15 gm PO X1 ONE Stop: 09/14/24 00:08 Last Admin: 09/14/24 02:37 Dose: Not Given Assessment & Plan Plan Summary: Mr. Shah is a 74-year-old male ith past medical history of ESRD on HD () secondary to diabetic nephropathy, bradycardia, insulin-dependent type 2 diabetes, hyperlipidemia, hypertension presenting to the ED on 09/13 with episode of severe dizziness followed by a fall. Patient admitted for management of symptomatic bradycardia, nephrology consulted for hyperkalemia and end-stage renal disease. # Hyperkalemia # ESRD on dialysis () On admission patient's potassium 5.6, increased to 5.9, was given treatment per hyperkalemia protocol, no improvement in potassium level Received partial hemodialysis treatment for 2.5 hours, 0.65 L removed Potassium level this morning 3.9 Patient established outpatient for hemodialysis on Saturday and Saturday, did report receiving dialysis treatment on Saturday. Plan: -Monitor potassium level -Will continue with inpatient dialysis #Symptomatic Bradycardia #Complete Heart Block, less likely 2nd Degree AV Block, Mobitz type II #Sinus Pause #Hypertension #Hyperlipidemia #ESRD on HD () #Diabetic Nephropathy #Hyperkalemia, resolved #Insulin-dependent Type 2 Diabetes Mellitus #Restless Leg Syndrome #Anemia of Chronic Disease -Management per ICU team, cardiology consulted. Case discussed with Attending Dr. Chand. Minoo Altman PGY1 Attending Provider Attestation/Addendum Patient seen and examined with resident physician Dr. Altman. Note reviewed, agree with findings and recommendations. I was called in very early this morning for need for emergency dialysis. Patient Tolerating dialysis without any problems. Hemodialysis for 3 hours, 2K, ultrafiltration 1-2 L, Epogen 6000, no heparin ordered. Plan of care discussed with the dialysis nurse. Please see dialysis flowsheet for further details. Spoke to Dr. Kary Duong-patient will need pacemaker emergently. However he has no veins due to his longstanding history of dialysis and used up all his veins. Currently being dialyzed through IJ dialysis catheter. Will monitor renal function closely
--- NOTE | 2024-09-14 09:30 | PD.CARDCATH ---
Cardiac Cath Procedure Procedure Name Date of procedure: 09/14/2024 SERVICE TECH/WELDER: Fuad Orantes MD PROCEDURE PERFORMED: Right subclavian angiogram Procedure Narrative History and indication: 73-year-old male from prior hospital admissions and follows up in my office with past medical history of intermittent high degree AV block including complete AV block but with good ventricular escape rhythm last admissions including March 2024 and last month, ESRD with failed right AV fistula and has left tunneled dialysis catheter on left subclavian vein (HD //), hypertension, IDDM, hyperlipidemia, diabetic nephropathy and retinopathy, GERD, restless leg syndrome, and 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 In ED patient came in with complaints of a ground-level fall after he got out of bed to go to his refrigerator and felt dizzy thus falling backwards. Patient was not told to have complete heart block in the setting of hyperkalemia and he like his previous admissions. Hyperkalemia was treated and eventually had to do dialysis to improve his potassium levels after which patient making his own rhythm but required dopamine infusion. Decision was made to perform a right subclavian angiogram to evaluate his right subclavian access as the patient had left tunneled dialysis catheter. Otherwise benefits and alternatives of the procedure were explained to the patient in detail and patient agreeable and provided consent for the same. Patient was brought to the cardiac catheterization lab to perform the left subclavian angiogram. Technique: A right antecubital and venous access was obtained and 20 cc contrast was injected into the right antecubital vein and fluoroscopic images were obtained which showed possible occlusion of right subclavian artery. We then performed a second right subclavian angiogram with additional contrast which showed complete and the patient occlusion of the right subclavian vein. 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 Patient already has a left tunneled left scapular placed in the left subclavian vein for his regular dialysis needs. Given his poor subcutaneous venous access patient is not a candidate for dual-chamber permanent pacemaker placement.. Patient recommended leadless pacemaker possible Micra which cannot be performed in this institution. I did discussed with patient's history and findings with the carpenter supervisor wooden ship at [facility] Dr.Gurjit Agapito Fernandez who has kindly accepted the patient from the procedure. Informed the ICU team to continue the dopamine drip for now along with external pacing pads. Patient continues to have intrinsic rhythm potassium is bradycardia at the present moment. Patient be transferred to the ICU at [facility] placement of pacemaker-Micra Fuad Orantes M.D. Interventional Cardiology
[2024-09-14] MEDS: HEPARIN SOD INJ 5000 UNIT/ML VIAL SC ×2 (11:00→21:28)
[2024-09-14] MEDS: SENNA TABLET 1 TAB PO (11:00)
--- NOTE | 2024-09-14 11:09 | ESCONSULT_ITS ---
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 In ED patient came in with complaints of a ground- level fall after he got out of bed to go to his refrigerator and felt dizzy thus falling backwards. And initially patient came in afebrile and hypertensive. Initial labs showed WBC 8.7, Hgb 11.7, sodium 134, potassium 5.6, chloride 97, BUN 35, creatinine 4.8, magnesium 2.4, LDH 290, BNP 528, TSH 6.72, and free T40.96. Initial imaging included CTs of cervical spine, head, lumbar spine, and thoracic spine which were all negative for any fractures or hemorrhage. EKG on this admission showed sinus bradycardia with second-degree AV block Mobitz type II. Echo on 04/04/2024 had the following findings: Normal LV size and function. Estimated EF 55-60%. Normal RV size and function. Mild MAC. Trace MR. Moderate AV sclerosis without stneosis. Patient has been admitted to the hospital multiple times in the past few months with the most recent being on 08/29/2024 due to bradycardia during dialysis. During this admission patient had good rescue rate rhythm as well as chronotropic response, but the thought process of transferring patient for possible placement of leadless pacemaker Micra during this time was not required as patient was not symptomatic. During my assessment this morning patient was uncomfortable due to back pain most likely from the fall. He was on dopamine drip, but his heart rate was in the 90s and he was maintaining good blood pressure. He stated that he did not have any palpitations or chest pain during this episode of dizziness nor that he had any shortness of breath. He stated he did not loose consciousness either during this spell. He had hemodialysis overnight as well given his hyperkalemia. Cardiology was consulted due to to his every asymptomatic bradycardia. 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 Patient is legally blind in the right eye and used to work in the [employer]. Allergies: NKDA cc:: cc: Anibal Fischer MD Review of Systems Review of Systems Narrative Review of Systems: Constitutional: Denies sweats, Denies weight loss/gain, Denies fever, Denies chills. HEENT: Denies hearing loss, Denies ear pain, Denies postnasal drip, Denies double vision, Denies blurry vision. Respiratory: Denies shortness of breath, Denies cough, Denies wheezing. Cardiovascular: Denies chest pain, Denies palpitations, Denies sudden loss of consciousness. GI: Denies blood in stool, Denies constipation, Denies abdominal pain, Denies difficulty swallowing, Denies nausea/vomit. : Denies urinary incontinence, Denies pain while urinating, Denies increased urinary frequency. MSK: Denies joint pain, Denies joint swelling, Denies numbness, Denies lower extremity swelling. Skin: Denies rash, Denies itching, Denies easy bruising. Neuro: Denies headaches, Admits dizziness, Denies seizures. 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 Patient is legally blind in the right eye and used to work in the [employer]. Allergies: NKDA Exam Vital Signs Temp Pulse Resp BP Pulse Ox O2 Del Method O2 Flow Rate 97.4 F 75 13 108/61 95 Nasal Cannula 2 09/14/24 10:09/14/24 10:09/14/24 10:09/14/24 10:09/14/24 10:09/14/24 10:09/14/24 05:15 Narrative Exam General: Alert and oriented x3. In no acute distress. Eyes: Legally blind right eye and mostly sees shadows with left eye HEENT: Atraumatic, normocephalic. No JVD noted. Mucosa moist. Cardiovascular: Normal S1 and S2. Normal rate and regular rhythm. 3 or 6 systolic murmur heard in the apex as well as the right parasternal border. Respiratory: No respiratory distress. Lungs are clear to auscultation bilaterally but decreased at the bases. No wheezing or crackles heard. Abdomen: Soft, nontender, nondistended. Skin: No rash. Warm to touch. Scars on the right side chest from previous tunneled dialysis catheter placement, left chest tunneled dialysis catheter in place, right failed AV fistula scar noted Musculoskeletal: No gross injuries. Able to move all 4 extremities. Neuro: Alert and oriented x3. No focal neuro deficits. Psych: Normal affect and mood Results Labs 09/14/24 04:53 09/14/24 10:24 Labs: Short CBC 09/13/24 09/14/24 Range/Units 15:27 04:53 WBC 8.7 8.3 (3.8-10.6) Thou/mm3 Hgb 11.7 L 12.3 L (13.5-16.0) g/dL Hct 36.5 L 38.3 L (41.0-53.0) % Plt Count 160 D 171 (140-440) Thou/mm3 BMP 09/13/24 09/13/24 09/13/24 15:21 17:38 20:12 Sodium 134 L Potassium 5.6 H 5.9 H 5.6 H Chloride 97 L Carbon Dioxide 28.6 BUN 35 H Creatinine 4.8 H* Glucose 185 H Calcium 10.0 09/14/24 09/14/24 00:35 04:53 Sodium 135 L Potassium 5.3 H 3.9 D Chloride 99 Carbon Dioxide 27.5 BUN 17 Creatinine 2.6 H D Glucose 143 H Calcium 9.6 Cardiac Enzymes 09/13/24 Range/Units 15:21 Troponin I < 0.020 (0.0-0.045) ng/mL Liver Function 09/13/24 09/14/24 Range/Units 15:21 04:53 Total Bilirubin 0.4 0.6 (0.3-1.2) mg/dL AST 41 H 26 (0-34) U/L ALT 11 30 (10-49) U/L Alkaline Phosphatase 190 H 199 H (46-116) U/L Albumin 4.4 4.5 (3.4-4.8) gm/dL Quality Measures Quality Measures VTE prophylaxis Advance care planning discussed with:: patient Medications Home Medications and Allergies Home Medications ?Medication ?Instructions ?Recorded ?Confirmed ?Type glipizide 10 mg tablet 10 mg PO BID ##180 10/30/17 08/29/24 History midodrine 10 mg tablet 10 mg PO QID ##180 10/30/17 09/14/24 History atorvastatin 10 mg tablet 10 mg PO HS 11/17/18 08/29/24 History cholecalciferol (vitamin D3) 25 1,000 unit PO QDAY 11/17/18 08/29/24 History mcg (1,000 unit) capsule (Vitamin D3) gabapentin 100 mg capsule 100 mg PO BID 08/06/19 09/14/24 History sevelamer carbonate 800 mg tablet 1,600 mg PO TID 02/24/20 09/14/24 History (Renvela) cetirizine 10 mg tablet 10 mg PO QDAY PRN Allergic Symptoms 01/17/21 08/29/24 History hydroxyzine HCl 25 mg tablet 25 mg PO HSPRN PRN Itching 01/17/21 08/29/24 History insulin detemir U-100 100 unit/mL See Rx Instructions .Route .COMPLEX 01/17/21 08/29/24 History (3 mL) subcutaneous pen (Levemir FlexTouch U-100 Insulin) ondansetron HCl 4 mg tablet 4 mg PO BID PRN Nausea 01/17/21 09/13/24 History pantoprazole 40 mg tablet,delayed 40 mg PO QDAY 01/17/21 08/29/24 History release ropinirole 1 mg tablet 2 mg PO BID 01/17/21 09/14/24 History semaglutide 0.25 mg or 0.5 mg (2 0.5 mg subcut QWEEK 01/17/21 08/29/24 History mg/1.5 mL) subcutaneous pen injector (Ozempic) montelukast 10 mg tablet 10 mg PO DAILY 04/05/24 09/14/24 History sitagliptin phosphate 50 mg tablet 50 mg PO DAILY 04/05/24 09/14/24 History (Januvia) diphenoxylate-atropine 2.5 1 tab PO 2XD 09/13/24 09/14/24 History mg-0.025 mg tablet lactulose 10 gram/15 mL oral 15 ml PO 1XD 09/13/24 09/13/24 History solution (Constulose) nutrition tx glu 1 ea PO 3XD 09/13/24 09/13/24 History intol,lac-free,soy-fiber 0.07 gram-0.8 kcal/mL liquid (Boost Glucose Control) sucroferric oxyhydroxide 500 mg 500 mg PO 1XD 09/13/24 09/13/24 History chewable tablet (Velphoro) vitamin B complex-vitamin C-folic 1 tab PO 1XD 09/13/24 09/14/24 History acid 0.8 mg tablet (Nephro-Chanell) Allergies Allergy/AdvReac Type Severity Reaction Status Date / Time diphenhydramine Allergy Mild ANXIETY Verified 08/29/24 09:13 Visit Medications Acetaminophen (Acetaminophen 325 Mg Tablet) 650 mg PO Q6H PRN PRN Reason: Pain 1-3 and/or Fever >100.1 Stop: 10/13/24 22:19 Atropine Sulfate (Atropine Sulf Inj 1 Mg/Ml Vial) 0.5 mg IVP PRN PRN PRN Reason: symptomatic bradycardia; HR<30 Stop: 10/13/24 22:22 Dextrose (Dextrose 50%-Water Inj 50 Ml Syringe) 25 ml IV Q15MIN PRN PRN Reason: BG 50-70 responsive npo pt Stop: 10/13/24 22:19 Dextrose (Dextrose 50%-Water Inj 50 Ml Syringe) 50 ml IV Q15MIN PRN PRN Reason: BG <50 OR BG <70 & pt unresponsive Stop: 10/13/24 22:19 Glucagon (Glucagon Inj 1 Mg Vial) 1 mg IM Q15MIN PRN PRN Reason: BG <70, and no IV access Heparin Sodium (Porcine) (Heparin Sod Inj 5000 Unit/Ml Vial) 5,000 unit SC Q12HR [facility] Stop: 09/28/24 08:59 Last Admin: 09/14/24 11:00 Dose: 5,000 unit Heparin Sodium (Porcine) (Heparin Sod Inj 1000 Unit/Ml Vial 10 Ml) 3,900 unit INDWELLCAT PRN PRN PRN Reason: DIALYSIS Stop: 09/28/24 05:22 Last Admin: 09/14/24 05:34 Dose: 3,900 unit Dopamine HCl/Dextrose (Intropin In D5w Ivpb) 400 mg in 250 mls @ 10.546 mls/hr IV .[id number] [facility]; Protocol Stop: 10/13/24 23:23 Last Titration: 09/14/24 05:32 Dose: 5 mcg/kg/min, 10.546 mls/hr Albumin Human (Albuminar-25 Ivpb) 25 gm in 100 mls @ 100 mls/min IV PRN PRN PRN Reason: DIALYSIS Insulin Human Lispro (Insulin Lispro (Admelog) 1 Unit/0.01 Ml Unit) 0 unit SC [facility]; Protocol Stop: 10/14/24 07:29 Last Admin: 09/14/24 08:00 Dose: Not Given Ondansetron HCl (Ondansetron Inj 2 Mg/Ml Inj 2 Ml) 4 mg IV Q6H PRN; Protocol PRN Reason: NAUSEA OR VOMITING Stop: 10/13/24 22:19 Last Admin: 09/13/24 23:58 Dose: 4 mg Sennosides (Senna Tablet) 1 tab PO QDAY [facility]; Protocol Stop: 10/14/24 08:59 Last Admin: 09/14/24 11:00 Dose: 1 tab Discontinued Medications Acetaminophen (Acetaminophen 500 Mg Tablet) 1,000 mg PO X1 ONE Stop: 09/13/24 15:49 Last Admin: 09/13/24 17:05 Dose: 1,000 mg Calcium Gluconate (Calcium Gluconate 10% Inj 1 Gm/10 Ml Vial) 1 gm IV X1 ONE Stop: 09/13/24 17:22 Last Admin: 09/13/24 17:42 Dose: 1 gm Calcium Gluconate (Calcium Gluconate 10% Inj 1 Gm/10 Ml Vial) 1 gm IV X1 ONE Stop: 09/14/24 00:01 Last Admin: 09/14/24 00:37 Dose: 1 gm Dextrose (Dextrose 50%-Water Inj 50 Ml Syringe) 25 ml IV X1 ONE Stop: 09/13/24 17:23 Last Admin: 09/13/24 17:43 Dose: 25 ml Insulin Human Regular (Insulin Hum Regular 1 Unit/0.01 Ml (Per Unit)) 5 unit IV X1 ONE Stop: 09/13/24 17:23 Last Admin: 09/13/24 17:46 Dose: 5 unit Lorazepam (Lorazepam 0.5 Mg Tablet) 0.5 mg PO X1 ONE Stop: 09/14/24 00:07 Last Admin: 09/14/24 00:45 Dose: Not Given Lorazepam (Lorazepam 2 Mg/Ml Vial) 0.5 mg IVP X1 ONE Stop: 09/14/24 00:16 Last Admin: 09/14/24 00:27 Dose: 0.5 mg Lorazepam (Lorazepam 2 Mg/Ml Vial) 0.5 mg IVP X1 ONE Stop: 09/14/24 01:54 Last Admin: 09/14/24 01:59 Dose: 0.5 mg Lorazepam (Lorazepam 2 Mg/Ml Vial) 0.5 mg IVP X1 ONE Stop: 09/14/24 06:35 Last Admin: 09/14/24 06:37 Dose: 0.5 mg Metoclopramide HCl (Metoclopramide Inj 5 Mg/Ml Vial 2 Ml) 5 mg IVP X1 ONE; Protocol Stop: 09/14/24 00:55 Last Admin: 09/14/24 01:05 Dose: 5 mg Sodium Polystyrene Sulfonate (Sod Polystyrene Sulfon Susp 15 Gm/60 Ml Btl) 60 gm PO X1 ONE Stop: 09/13/24 23:24 Last Admin: 09/13/24 23:40 Dose: 60 gm Sodium Polystyrene Sulfonate (Sod Polystyrene Sulfon Susp 15 Gm/60 Ml Btl) 15 gm PO X1 ONE Stop: 09/14/24 00:08 Last Admin: 09/14/24 02:37 Dose: Not Given Assessment & Plan Plan This is a well-known to me 73-year-old male from prior hospital admissions and follows up in my office with past medical history of intermittent high degree AV block including complete AV block but with good ventricular escape rhythm last admissions including March 2024, ESRD with failed right AV fistula and has left tunneled dialysis catheter on left subclavian vein (HD /), hypertension, IDDM, hyperlipidemia, diabetic nephropathy and retinopathy, GERD, restless leg syndrome, and 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 1. Symtpomatic severe bradycardia 2. Intermittent high degree AV block Mobitz type II as well as complete heart block 3. Ground-level fall 4. Dizziness ?Patient has been admitted to the hospital multiple times in the past few months with the most recent being on 08/29/2024 due to bradycardia during dialysis ?On last admission patient was also severely bradycardic, but at this time he had good rescue rate rhythm as well as chronotropic response. ? During this admission patient states that he stood up from his bed to go to the fridge and had a dizzy spell which led to him having a ground-level fall. Patient on admission was hyperkalemic which could have contributed to patient's bradycardia. ? Patient was placed on dopamine drip overnight and has maintained heart rate in the 90s and blood pressure stable at this time. ? Given patient has significant scar tissue in the right upper side chest and a tunneled dialysis catheter on the left subclavian vein we do not have good access for pacemaker. ? 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 Plan: ?Recommend to transfer patient to [facility] for placement of leadless pacemaker Micra ?Recommend to continue dopamine drip and external pacemaker ?Avoid any rate controlling medications such as calcium channel blockers and beta-blockers 4.ESRD on hemodialysis Saturday, , Saturday (failed right AV fistula, has left tunneled dialysis cath) 5. Hyperkalemia ?Patient's potassium was 5.6, creatinine 4.8, and BUN 35 on admission ?Received hemodialysis ?Continue management as per primary care team 6. Essential hypertension ?On admission patient had blood pressure of 157/75 ?Currently blood pressure is 108/61 ?Patient seems to be on midodrine 10 mg 4 times daily at home most likely due to dialysis Plan: ?Recommend to keep systolic blood pressure around 140-150 ?Recommend IV hydralazine as needed for systolic blood pressure above 180 7. Hypothyroidism ?TSH 6.72 and free T4 0.96 on admission ?Recommend follow-up outpatient with primer waterproofing machine adjuster ?Continue management as per primary care team 8. DM2 9. Diabetic neuropathy 10. Diabetic nephropathy ?Patient is legally blind from the right eye and left eye he mostly sees shadows ?Patient has end-stage renal disease likely due to diabetic nephropathy ?Continue management as per primary care team 11. Hyperlipidemia ?Labs on 08/30/2024 showed triglycerides 123, cholesterol 123, LDL 49, HDL 49 ?Continue management as per primary care team 12. GERD ?Patient is on pantoprazole 40 mg daily at home ?Recommend to continue during hospital stay 13. Restless leg syndrome ?Patient is on ropinirole 2 mg twice daily at home ? Recommend to continue during hospital stay Continue rest of management as per primary team. We are grateful to be able to participate in Mr. Shah's care. Thank you for the consult Plan of care discussed with attending Parts Identification Technician, Dr Rolanda Rojas MD PGY-1 Attending Provider Attestation/Addendum I have personally seen and examined the patient separately on the above date of service and discussed the plan of care with the resident. I reviewed the resident Dr. Iverson consultation progress note and agree with the resident findings and plan in the note above and have also edited the documentation to reflect my findings and plan. 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 In ED patient came in with complaints of a ground- level fall after he got out of bed to go to his refrigerator and felt dizzy thus falling backwards.. This admission in the emergency department patient was noted to have complete heart block and almost 7-second pause in the emergency department requiring external pacing. Patient presented with elevated potassium at 5.9 even though he did have dialysis on Saturday as per the ED. Recommended patient to give hyperkalemia cocktail the patient only received initially calcium gluconate as well as insulin and dextrose. Patient was given Kayexalate but he did throw up. Recommended to do emergent dialysis and nephrology was consulted and patient did have dialysis after which patient improved and external pacing was stopped and decreased backup rate to 40 bpm. This morning patient continued to have his intrinsic rhythm and heart rate was in the 60s to 70s and was placed on dopamine drip and his blood pressure is around 120-140 mmHg with dopamine drip. As patient and during my previous evaluations and during the hospitalizations in March 2024 as well as last month patient does have poor venous access with significant scars on the right chest and he has a left tunneled dialysis catheter. Patient was recommended leadless pacemaker Micra because of that but given his transient AV block he was being treated conservatively as he is symptomatic and did not want any further interventions at that point of time. Patient now is in complete heart block which also resolved with treating the hyperkalemia but given his recurrent admissions and fall during the admission and has been symptomatic with dizziness along with a fall and would require permanent pacemaker. Discussed with the patient. Patient in chair above why the left-sided tunneled dialysis catheter was placed and hence decision was made to do a right subclavian venogram. 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 The left subclavian vein access is not possible because of the tunneled dialysis catheter. Patient given his poor access SUZANNA is a suitable candidate for Micra leadless pacemaker which cannot be done at this institution. I did contact Dr.Gurjit Altman [facility]-fruit room hand at [facility] who accepted the patient and is willing to do the Micra leadless pacemaker. Informed the primary and ICU team to continue the patient on the dopamine drip for now continue to have external pacer pads on place and contact the ICU team at [facility] for transfer and then consult ultra electroplating technician there. There is a high probability of sudden, clinically significant or life threatening deterioration in the patient condition which required the highest level of physician preparedness to intervene urgently. I have personally spent 65 minutes of critical care time, exclusive of time spent on any procedures, in evaluation and management of this critically ill patient. Fuad Orantes M.D. Interventional Cardiology
--- NOTE | 2024-09-14 11:10 | ESDS_ITS ---
<Statement entered by Elan Yuan MD - 09/14/24 17:26> TOTAL TIME: 45MINUTES ON DIRECT MEDICAL CARE, MANAGEMENT - COORDINATION AND COUNSELING > 50% OF TOTAL TIME I saw and evaluated the patient. I reviewed the resident?s note and agree with findings and plan as documented in the resident?s note. Planned Discharge Date 09/14/24 DS: Providers Provider Date of admission: 09/13/24 22:18 Primary care physician: Keisha Chand MD Admitting Provider: Anibal Fischer MD Attending Provider on Admission: Anibal Fischer MD Consults: 09/13/24 21:28 Consult to Cardiology Stat Comment: Consulting Provider: Fuad Orantes 09/13/24 21:32 Consult to Nephrology Stat Comment: Consulting Provider: Keisha Chand 09/14/24 10:55 Referral - Striker Out Stat Service Needed for Transfer: Interventional Cardiology Addl Comments:: Tank Pumper Panelboard needed for leadless pacemaker placment 2/2 access difficulty in setting of scarring from HD catheter. Accepted at [facility] by envelope maker Juaquin Barrera. Attending Provider on DC: Don Castillo MD Discharging Provider: Don Castillo MD DS: Diagnosis Problem List Completed Was Problem List Reviewed/Reconciled?: Yes Hospital Course Hospital Course Hospital course: Mr Shah is a 74-year-old male with past medical history of ESRD on HD (/) secondary to diabetic nephropathy, bradycardia, insulin-dependent type 2 diabetes, hyperlipidemia, hypertension presenting to the ED on 09/13 with episode of severe dizziness followed by a fall. Patient has had multiple admissions for bradycardia, but patient seems to improve after hospitalization with heart rate in 70s and patient has been getting discharged. Patient follows up with Dr. Chand for dialysis needs; last session was Satuda09/12 and there were no acute complications post dialysis. Of note, patient was admitted in the past for bradycardia but at that time was not a candidate for PM placement secondary to anterior chest wall scarring due to previous dialysis catheter insertions. Patient was told to follow-up with Division Field Inspector, Dr. Orantes, who saw the patient on 09/08 in the clinic and told him to follow-up sometime in October. Of note, cardiology recommended leadless Micra pacemaker for the patient if he ever became symptomatic. Patient has been having a difficult time and has been grieving the loss of her daughter who passed on 09/02 secondary to a motor vehicle accident. In the ED, patient presented with BP (127/75), heart rate initially 69 but went as low as 30-35, respiratory rate 19, afebrile satting 99 on room air. Pertinen t lab findings included hemoglobin 11.7, MCV 94, platelet 160, sodium 134, potassium 5.6 that improved to 5.1, BUN 35, creatinine 4.8, magnesium 2.3, troponin within normal, BNP 528, free T40.96. Cervical, head, lumbar, thoracic CT were negative for any acute processes; EKG did show signs of complete heart block. Past medical history: As noted above Past surgical history: Patient with history of AV fistula on the right arm which is completely clotted and multiple permacath placement on the left side as well as right-sided dialysis catheters Allergies: NKDA Medications: Pending med rec Family history: Positive for hypertension and type-2 diabetes mellitus Social history: Lives in [place] with his and denies any kind of alcohol, tobacco or drug use. Patient is legally blind in the right eye and used to work in the [employer]. ROS: All 12 systems assessed and the patient denies unless otherwise stated in HPI Patient was admitted to ICU for further management of complete heart block requiring transcutaneous pacing and IV dopamine for a 5-second sinus pause which occurred in the ED. 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 Orantes initiated the transfer by consulting electrophisiologist envelope maker Dr. Juaquin Altman at [facility] [place] [facility] [place] for the placement of leadless cardiac pacemaker. Problems: #Symptomatic Bradycardia #Complete Heart Block, less likely 2nd Degree AV Block, Mobitz type II #Sinus Pause #Hypertension #Hyperlipidemia #ESRD on HD (//) #Diabetic Nephropathy #Hyperkalemia, resolved #Insulin-dependent Type 2 Diabetes Mellitus #Restless Leg Syndrome #Elevated TSH Patient is on Gabapentin 100mg po bid and Ropinirole 2mg po bid Patient has elevated TSH on prior admissions but T4 has been wnl #Normocytic Anemia #Anemia of Chronic Disease Patient has anemia secondary to ESRD status Past iron panels have shown decreased iron but elevated ferritin Patient's current Hgb within acceptable level for Plan: -Patient is being transferred to [facility] at [place] for placement of leadless cardiac pacemaker. -Continue with dopamine drip, and external pacemaker with backup HR 44. The patient's management plan was discussed with my attending physician MD Don Mendoza MD, PGY2 Time Spent with Patient Time attestation: Total time spent providing and/or coordinating discharge services: > 30 minutes Exam Vital Signs Temp Pulse Resp BP Pulse Ox O2 Del Method O2 Flow Rate 97.4 F 75 13 108/61 95 Nasal Cannula 2 09/14/24 10:25 09/14/24 10:09/14/24 10:09/14/24 10:09/14/24 10:09/14/24 10:09/14/24 05:15 Narrative Exam General: No acute distress, Alert and Oriented HEENT: Moist mucous membranes, oropharynx clear Neck: Supple, No masses, No JVD CVS: HR in 70's in dopamine drip, No murmurs, rubs or gallops Lungs: Clear to auscultation with no accessory use, no wheeze no rhonchi Abd: Soft, NT/ND, +BS, no organomegaly Ext: No edema, warm and well perfused Skin: No rash Psych: Mildly somnolent Discharge Plan Problem List Was Problem List Reviewed/Reconciled?: Yes Plan Facility Pt Being Transferred to: [facility] Service Needed for Transfer: Tank Pumper Panelboard Disposition Comment: Transferred for placement of leadless cardiac pacemaker Patient condition on transfer: Stable Prescriptions/Referrals Prescriptions/Med Rec: No Action glipizide 10 mg Tablet 10 mg PO BID Qty: 180 midodrine 10 mg Tablet 10 mg PO QID Qty: 180 atorvastatin 10 mg Tablet 10 mg PO HS cholecalciferol (vitamin D3) [Vitamin D3] 1,000 unit Capsule 1,000 unit PO QDAY ropinirole 1 mg Tablet 2 mg PO BID cetirizine 10 mg Tablet 10 mg PO QDAY PRN (Reason: Allergic Symptoms) ondansetron HCl 4 mg Tablet 4 mg PO BID PRN (Reason: Nausea) pantoprazole 40 mg tablet,delayed release (DR/EC) 40 mg PO QDAY hydroxyzine HCl 25 mg Tablet 25 mg PO HSPRN PRN (Reason: Itching) Levemir FlexTouch U100 Insulin 100 unit/mL (3 mL) Insulin Pen See Rx Instructions .ROUTE .COMPLEX Rx Instructions: 30 units SC QAM and 10 units SC QHS Ozempic 0.25 mg or 0.5 mg(2 mg/1.5 mL) Pen Injector 0.5 mg SUBCUT QWEEK clopidogrel [Plavix] 75 mg Tablet 75 mg PO QDAY Qty: 30 0RF gabapentin 100 mg capsule 100 mg PO BID Patient Comments: take 1 capsule by mouth twice a day sevelamer carbonate [Renvela] 800 mg Tablet 1,600 mg PO TID montelukast 10 mg tablet 10 mg PO DAILY Patient Comments: take 1 tablet by mouth once daily Januvia 50 mg tablet 50 mg PO DAILY Patient Comments: take 1 tablet by mouth once daily diphenoxylate-atropine 2.5-0.025 mg tablet 1 tab PO 2XD Patient Comments: take 1 tablet by mouth twice a day if needed for diarrhea Nephro-Chanell 0.8 mg tablet 1 tab PO 1XD Patient Comments: take 1 tablet by mouth once daily lactulose [Constulose] 10 gram/15 mL solution 15 ml PO 1XD Patient Comments: take 15 MILLILITER by mouth once daily Velphoro 500 mg tablet,chewable 500 mg PO 1XD Patient Comments: take 1 tablet by mouth three times a day Boost Glucose Control 0.07-0.8 gram-kcal/mL liquid 1 ea PO 3XD Referrals: Keisha Chand MD [Primary Care Provider] - Patient/Caregiver Discharge Instructions Print Language: Malagasy Quality Discharge Quality Measures VTE prophylaxis and none
[2024-09-14 11:13] LABS: Albumin, Serum 4.1 gm/dL (3.4-4.8); Anion Gap 10 (7-16); BUN/Creatinine Ratio 6 Ratio (12-20); Blood Urea Nitrogen 21 mg/dL (9-23); Calcium 9.5 mg/dL (8.3-10.6); Calcium (Corrected) 9.5 mg/dL (8.5-10.1); Carbon Dioxide 25.3 mMol/L (20.0-31.0); Chloride 100 mMol/L (98-107); Creatinine (Component) 3.6 mg/dL (0.6-1.3); Estimated Creatinine Clearance 14.8 mL/min (>60); Glucose 127 mg/dL (74-106); Osmolality,Calculated 275 (275-295); Phosphorous 3.4 mg/dL (2.4-5.1); Sodium 135 mMol/L (136-145); eGFR 17 See Note
--- NOTE | 2024-09-14 11:50 | PC.CM ---
Addendum entered by Dunia Hoskins RN 09/14/24 17:58: Patient needs transfer for Interventional cardiology for placement of a leadless pacemaker. Dr. Merida spoke to lead clinical research coordinator Juaquin Barrera and he accepted patient at [facility] in [place]. It was previously [facility]. Address [address] [place] [id number]. [facility] transfer plato phone number [phone] . I completed transfer back agreement and faxed back to the transfer center. Packet ready on transfer nurse desk with CD.. Bree transfer nurse states they will need to have an accepting hospitalist. Once they have that, they will reach out to our doctors for report. Then they will look for a bed. Addendum entered by Dunia Hoskins RN 09/14/24 17:04: Bree faxed me over the transfer back agreement and I had it signed and faxed it back to her. I spoke to Bree earlier today and she states they will be looking at a bed at [facility] once they speak to their hospitalist. [facility] use to be [facility]. The address is [address] [place] [address]. [place] [phone]. Original Note: 1054 I received a referral to transfer patient for interventional cardiology needing a leadless pacemaker placement. Doctors notes state patient has been accepted at [facility] with Dr Juaquin Barrera. I contacted [facility] and I initiated a transfer. I faxed over information to [phone]. I spoke to Dr. Yuan and he provided his cell number for contact.
--- NOTE | 2024-09-14 13:37 | PC.NURSE ---
Pt taken to floor connected to tele and pacer pads. No issues during transfer of care. Staff at bedside to assume care.
[2024-09-14] MEDS: INSULIN LISPRO (AdmeLOG) 1 UNIT/0.01 ML UNIT SC ×2 (17:00→21:28)
[2024-09-14] MEDS: ACETAMINOPHEN 325 MG TABLET 650 MG PO ×2 (17:03→22:30)
[2024-09-14] MEDS: GABAPENTIN 100 MG CAPSULE PO (18:38)
[2024-09-14] MEDS: rOPINIRole HCL 1 MG TABLET 2 MG PO (18:42)
[2024-09-14] MEDS: ONDANSETRON INJ 2 MG/ML INJ 2 ML 4 MG IV (19:50)
[2024-09-14] MEDS: INSULIN GLARGINE (Lantus) 5 UNIT/0.05 ML (PER 5 UNITS) 6 UNIT SC (21:28)
[2024-09-14] MEDS: LIDOCAINE 5% 1 PATCH TOP (21:33)
[2024-09-15] VITALS (89 sets, daily range): BP systolic 80–195; BP diastolic 42–112; PULSE 37–85; RESP 0–29; TEMP 35.6–37.2; O2SAT 81–100; BMI 20.8
--- NOTE | 2024-09-15 02:37 | PC.NURSE ---
Called [facility] transfer center, to follow up, spoke to Angi, pt has been accepted and is waiting on bed, accepting hospitalist - MD Adler was instructed to call and follow up in AM due to current short staff
[2024-09-15] MEDS: ONDANSETRON INJ 2 MG/ML INJ 2 ML 4 MG IV (02:50)
[2024-09-15] MEDS: HEPARIN SOD INJ 5000 UNIT/ML VIAL SC ×3 (05:39→21:05)
[2024-09-15 06:26] LABS: Basophils % (Auto) 0 % (0-2.5); Eosinophils # (Auto) 0.3 Thou/mm3 (0.0-0.5); Eosinophils % (Auto) 4 % (0-10); Hematocrit 35.2 % (41.0-53.0); Hemoglobin 11.4 g/dL (13.5-16.0); Immature Granulocytes % (Auto) 0 % (0-0); Immature Granulocytes Auto 0.02 Thou/mm3 (0.00-0.00); Lymphocytes # (Auto) 2.2 Thou/mm3 (1.0-4.8); Lymphocytes % (Auto) 27 % (10-50); Mean Corpuscular HGB Conc 32.4 g/dl (31.0-37.0); Mean Corpuscular Hemoglobin 30.2 pg (25.0-35.0); Mean Corpuscular Volume 93 fL (80-100); Monocytes # (Auto) 0.8 Thou/mm3 (0.0-0.8); Monocytes % (Auto) 10 % (0-12); Neutrophils # (Auto) 4.7 Thou/mm3 (1.8-7.7); Neutrophils % (Auto) 58 % (37-80); Nucleated Red Blood Cell % 0 /100 WBC (0); Platelet Count 193 Thou/mm3 (140-440); RDW Standard Deviation 53.1 fL (35.1-43.9); Red Blood Count 3.78 Miln/mm3 (4.50-5.90)
[2024-09-15 07:26] LABS: Alanine Aminotransferase 28 U/L (10-49); Albumin, Serum 4.2 gm/dL (3.4-4.8); Albumin/Globulin Ratio 1.1 (1.2-2.2); Alkaline Phosphatase 191 U/L (46-116); Anion Gap 10 (7-16); Aspartate Amino Transferase 25 U/L (0-34); BUN/Creatinine Ratio 8 Ratio (12-20); Bilirubin,Total 0.4 mg/dL (0.3-1.2); Blood Urea Nitrogen 36 mg/dL (9-23); Calcium 9.2 mg/dL (8.3-10.6); Calcium (Corrected) 9.2 mg/dL (8.5-10.1); Carbon Dioxide 26.5 mMol/L (20.0-31.0); Chloride 97 mMol/L (98-107); Creatinine (Component) 4.6 mg/dL (0.6-1.3); Estimated Creatinine Clearance 11.7 mL/min (>60); Globulin 3.7 gm/dL (2.3-3.5); Glucose 86 mg/dL (74-106); Magnesium 2.3 mg/dL (1.6-2.6); Osmolality,Calculated 273 (275-295); Phosphorous 4.4 mg/dL (2.4-5.1); Sodium 133 mMol/L (136-145); Total Protein 7.9 gm/dL (5.7-8.2); eGFR 13 See Note
--- NOTE | 2024-09-15 08:32 | PC.NURSE ---
BP dropped to 98/66. Midodrine 10 mg po given
[2024-09-15] MEDS: MIDODRINE 5 MG TABLET 10 MG PO (08:33)
--- NOTE | 2024-09-15 08:58 | PC.SS ---
Update: Patient is receiving dialysis today. Patient is established with out patient dialysis. Medical Review Specialist is Dr. Chand.
[2024-09-15] MEDS: ALBUMIN HUMAN 25% IVPB 25 GM/100 ML BTL IV (09:03)
--- NOTE | 2024-09-15 09:07 | PC.NURSE ---
BP dropped, albumin 25% IVP given. Goal increased 100 cc to account for albumin.
[2024-09-15] MEDS: rOPINIRole HCL 1 MG TABLET 2 MG PO ×2 (09:24→21:05)
--- NOTE | 2024-09-15 09:29 | PC.CM ---
Addendum entered by Dunia Hoskins RN 09/15/24 19:36: Pending open bed at [facility] or [facility]. Addendum entered by Dunia Hoskins RN 09/15/24 12:34: I received a call from Keyla with [facility]. She states they still do not have an bed at [facility]. They are also checking to see if [facility] has an ICU bed and they are also full. she asked if I tried other facilities. I let her know that my supervisor type photography called Dr. Juaquin Barrera directly and he accepted this patient. Keyla stated they will keep us updated. Addendum entered by Dunia Hoskins RN 09/15/24 10:53: I spoke to Charge nurse and I let her know we are still pending an open bed at [facility] in [place]. Patient does have an external pacemaker, but he is currently not on any drips. I called [facility] to find out if they can manage an external pacemaker. I received a call back from a senior relationship manager Venkatesh, and he was going to find out and call me back. Original Note: [id number] I spoke to Claudia at [facility] [phone]. She states they do not have an open ICU bed at this time at [facility] in [place]. She verified my call back number and she states she will let us know when a bed opens up. I will check back later today if I do not here from her.
--- NOTE | 2024-09-15 10:00 | PD.RESPRO ---
Documentation for date of: 09/15/24 Subjective Subjective Interval history: Patient seen at bedside this morning. No overnight events. Patient had no cardic complaints today. Potassium 5 and mg 2.3, keep above 4 and 2 respectively to avoid any arrhythmias. Patient is still pending transfer. Exam Vital Signs Temp Pulse Resp BP Pulse Ox O2 Del Method O2 Flow Rate 97.1 F 78 12 120/59 L 98 Room Air 2 09/15/24 08:00 09/15/24 09:45 09/15/24 09:15 09/15/24 09:45 09/15/24 09:15 09/14/24 18:00 09/14/24 05:15 Narrative Exam General: Alert and oriented x3. In no acute distress. Eyes: Legally blind right eye and mostly sees shadows with left eye HEENT: Atraumatic, normocephalic. No JVD noted. Mucosa moist. Cardiovascular: Normal S1 and S2. Normal rate and regular rhythm. 3 or 6 systolic murmur heard in the apex as well as the right parasternal border. Respiratory: No respiratory distress. Lungs are clear to auscultation bilaterally but decreased at the bases. No wheezing or crackles heard. Abdomen: Soft, nontender, nondistended. Skin: No rash. Warm to touch. Scars on the right side chest from previous tunneled dialysis catheter placement, left chest tunneled dialysis catheter in place, right failed AV fistula scar noted Musculoskeletal: No gross injuries. Able to move all 4 extremities. Neuro: Alert and oriented x3. No focal neuro deficits. Psych: Normal affect and mood Objective Labs 09/15/24 05:20 09/15/24 05:20 Labs: Laboratory Results - last 24 hr 09/14/24 09/15/24 10:24 05:20 WBC 8.0 RBC 3.78 L Hgb 11.4 L Hct 35.2 L MCV 93 MCH 30.2 MCHC 32.4 RDW Std Deviation 53.1 H Plt Count 193 Neut % (Auto) 58 Lymph % (Auto) 27 [place] % (Auto) 10 Eos % (Auto) 4 Baso % (Auto) 0 Neut # (Auto) 4.7 Lymph # (Auto) 2.2 [place] # (Auto) 0.8 Eos # (Auto) 0.3 Baso # (Auto) 0.0 Immature Gran # (Auto) 0.02 H Absolute Nucleated RBC 0.00 Immature Gran % 0 Nucleated RBC % 0 Sodium 135 L 133 L Potassium 5.0 D 5.0 Chloride 100 97 L Carbon Dioxide 25.3 26.5 Anion Gap 10 10 BUN 21 36 H Creatinine 3.6 H D 4.6 H* D Estim Creat Clear Calc 14.8 L 11.7 L eGFR 17 L 13 L* BUN/Creatinine Ratio 6 L 8 L Glucose 127 H 86 Calculated Osmolality 275 273 L Calcium 9.5 9.2 Corrected Calcium 9.5 9.2 Phosphorus 3.4 4.4 Magnesium 2.3 Total Bilirubin 0.4 AST 25 ALT 28 Alkaline Phosphatase 191 H Total Protein 7.9 Albumin 4.1 4.2 Globulin 3.7 H Albumin/Globulin Ratio 1.1 L Quality Measures Quality Measures VTE prophylaxis Advance care planning discussed with:: patient Assessment & Plan Assessment Current Active Medications: Generic Name Dose Route Start Last Admin Trade Name Freq PRN Reason Stop Dose Admin Acetaminophen 650 mg 09/14/24 14:20 09/14/24 22:30 Acetaminophen 325 Mg Tablet PO 10/14/24 14:19 650 mg Q6HR PRN Administration Fever >101 or pain 1-3 Atropine Sulfate 0.5 mg 09/13/24 22:23 Atropine Sulf Inj 1 Mg/Ml Vial IVP 10/13/24 22:22 PRN PRN symptomatic bradycardia; HR<30 Dextrose 25 ml 09/13/24 22:20 Dextrose 50%-Water Inj 50 Ml Syringe IV 10/13/24 22:19 Q15MIN PRN BG 50-70 responsive npo pt Dextrose 50 ml 09/13/24 22:20 Dextrose 50%-Water Inj 50 Ml Syringe IV 10/13/24 22:19 Q15MIN PRN BG <50 OR BG <70 & pt unresponsive Gabapentin 100 mg 09/14/24 18:35 09/14/24 18:38 Gabapentin 100 Mg Capsule PO 10/14/24 18:34 100 mg BID FRAN Administration Glucagon 1 mg 09/13/24 22:20 Glucagon Inj 1 Mg Vial IM Q15MIN PRN BG <70, and no IV access Heparin Sodium (Porcine) 3,900 unit 09/14/24 05:23 09/14/24 05:34 Heparin Sod Inj 1000 Unit/Ml Vial 10 Ml INDWELLCAT 09/28/24 05:22 3,900 unit PRN PRN Administration DIALYSIS Heparin Sodium (Porcine) 5,000 unit 09/14/24 22:00 09/15/24 05:39 Heparin Sod Inj 5000 Unit/Ml Vial SC 09/28/24 21:59 5,000 unit TID FRAN Administration Dopamine HCl/Dextrose 400 mg in 250 mls @ 10.546 mls/hr 09/13/24 23:24 09/15/24 03:11 Intropin In D5w Ivpb IV 10/13/24 23:23 0 mcg/kg/min .[id number] FRAN 0 mls/hr Titration Protocol 5 MCG/KG/MIN Albumin Human 25 gm in 100 mls @ 100 mls/min 09/14/24 01:17 09/15/24 09:03 Albuminar-25 Ivpb IV 100 mls/min PRN PRN Administration DIALYSIS Insulin Glargine 6 unit 09/14/24 21:00 09/14/24 21:28 Insulin Glargine (Lantus) 5 Unit/0.05 Ml (Per 5 Units) SC 10/14/24 20:59 6 unit HS FRAN Administration Insulin Human Lispro 0 unit 09/14/24 07:30 09/15/24 09:24 Insulin Lispro (Admelog) 1 Unit/0.01 Ml Unit SC 10/14/24 07:29 Not Given ACHS [facility] Protocol Lidocaine 1 patch 09/14/24 21:18 09/14/24 21:33 Lidocaine 5% 1 Patch TOP 10/14/24 21:29 1 patch DAILY PRN Administration PAIN SCALE 4-6 (Moderate Ondansetron HCl 4 mg 09/13/24 22:20 09/15/24 02:50 Ondansetron Inj 2 Mg/Ml Inj 2 Ml IV 10/13/24 22:19 4 mg Q6H PRN Administration NAUSEA OR VOMITING Protocol Ropinirole HCl 2 mg 09/15/24 09:00 09/15/24 09:24 Ropinirole Hcl 1 Mg Tablet PO 10/15/24 08:59 2 mg BID FRAN Administration Sennosides 1 tab 09/14/24 09:00 09/14/24 11:00 Senna Tablet PO 10/14/24 08:59 1 tab QDAY FRAN Administration Protocol Plan This is a well-known to me 73-year-old male from prior hospital admissions and follows up in my office with past medical history of intermittent high degree AV block including complete AV block but with good ventricular escape rhythm last admissions including March 2024, ESRD with failed right AV fistula and has left tunneled dialysis catheter on left subclavian vein (HD /), hypertension, IDDM, hyperlipidemia, diabetic nephropathy and retinopathy, GERD, restless leg syndrome, and 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 1. Symtpomatic severe bradycardia 2. Intermittent high degree AV block Mobitz type II as well as complete heart block 3. Ground-level fall 4. Dizziness ?Patient has been admitted to the hospital multiple times in the past few months with the most recent being on 08/29/2024 due to bradycardia during dialysis ?On last admission patient was also severely bradycardic, but at this time he had good rescue rate rhythm as well as chronotropic response. ? During this admission patient states that he stood up from his bed to go to the fridge and had a dizzy spell which led to him having a ground-level fall. Patient on admission was hyperkalemic which could have contributed to patient's bradycardia. ? Patient was placed on dopamine drip overnight and has maintained heart rate in the 90s and blood pressure stable at this time. ? Given patient has significant scar tissue in the right upper side chest and a tunneled dialysis catheter on the left subclavian vein we do not have good access for pacemaker. ? 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 Plan: ?Recommend to transfer patient to [facility] for placement of leadless pacemaker Micra - -Dr. Orantes spoke to Dr.Gurjit Agapito Fernandez-painting and coating worker at [facility] who accepted the patient and is willing to do the Micra leadless pacemaker. Informed the primary and ICU team to continue the patient on the dopamine drip for now continue to have external pacer pads on place and contact the ICU team at [facility] for transfer and then consult painting and coating worker there. ?Recommend to continue dopamine drip and external pacemaker ?Avoid any rate controlling medications such as calcium channel blockers and beta-blockers 4.ESRD on hemodialysis Saturday, , Saturday (failed right AV fistula, has left tunneled dialysis cath) 5. Hyperkalemia ?Patient's potassium was 5.6, creatinine 4.8, and BUN 35 on admission ?Received hemodialysis ?Continue management as per primary care team 6. Essential hypertension ?On admission patient had blood pressure of 157/75 ?Currently blood pressure is 108/61 ?Patient seems to be on midodrine 10 mg 4 times daily at home most likely due to dialysis Plan: ?Recommend to keep systolic blood pressure around 140-150 ?Recommend IV hydralazine as needed for systolic blood pressure above 180 7. Hypothyroidism ?TSH 6.72 and free T4 0.96 on admission ?Recommend follow-up outpatient with skin care technician ?Continue management as per primary care team 8. DM2 9. Diabetic neuropathy 10. Diabetic nephropathy ?Patient is legally blind from the right eye and left eye he mostly sees shadows ?Patient has end-stage renal disease likely due to diabetic nephropathy ?Continue management as per primary care team 11. Hyperlipidemia ?Labs on 08/30/2024 showed triglycerides 123, cholesterol 123, LDL 49, HDL 49 ?Continue management as per primary care team 12. GERD ?Patient is on pantoprazole 40 mg daily at home ?Recommend to continue during hospital stay 13. Restless leg syndrome ?Patient is on ropinirole 2 mg twice daily at home ? Recommend to continue during hospital stay Continue rest of management as per primary team. We are grateful to be able to participate in Mr. Shah's care. Thank you for the consult Plan of care discussed with attending Rod Straightener, Dr Rolanda Rojas MD PGY-1 There is a high probability of sudden, clinically significant or life threatening deterioration in the patient condition which required the highest level of physician preparedness to intervene urgently. I have personally spent 65 minutes of critical care time, exclusive of time spent on any procedures, in evaluation and management of this critically ill patient. Attending Provider Attestation/Addendum I have personally seen and examined the patient separately on the above date of service and discussed the plan of care with the resident. I reviewed the resident Dr. Iverson consultation progress note and agree with the resident findings and plan in the note above and have also edited the documentation to reflect my findings and plan. Fuad Duong Anumandla M.D. Interventional Cardiology
[2024-09-15] MEDS: ACETAMINOPHEN 325 MG TABLET 650 MG PO ×2 (10:09→19:14)
[2024-09-15] MEDS: HEPARIN SOD INJ 1000 UNIT/ML VIAL 10 ML 3900 UNIT INDWELLCAT (10:36)
--- NOTE | 2024-09-15 10:44 | PC.NURSE ---
Pt CO CP from being paced by pace maker, pacer dereased to 36 due to pt. CP. Decreased Qb 250 due to HR decrease.
[2024-09-15] MEDS: HYDROcodone/APAP 5/325 TABLET 1 TAB PO (11:00)
--- NOTE | 2024-09-15 11:11 | PC.NURSE ---
Hydrocodone given for CP Pain by SRINATH Landrum
--- NOTE | 2024-09-15 11:39 | PC.SS ---
DEVELOPMENT TECHNICAL LEAD conducted phone contact with the patient?s spouse, Kathleen Shah ; to conduct initial assessment on behalf of the patient. Patient is currently admitted to the ICU. DEVELOPMENT TECHNICAL LEAD utilized translation services to conduct discussion. Patient resides at home with spouse. Patient utilizes a wheelchair to assist with ambulation. Patient utilizes home oxygen. Patient requires assistance with completion of ADL?s. Patient is aligned with [facility]. Patient?s spouse is assigned [facility] staff. Patient?s medical surrogate decision maker is spouse, Kathleen Shah. Patient?s PCP is Dr. Chand. Patient participates with dialysis. Dialysis schedule is and Sat. Patient?s manager of corporate communications is Dr. Chand. Patient possesses scheduled transport to dialysis sessions. Patient is diabetic, insulin dependent. Patient is pending transfer for interventional cardiology needing a leadless pacemaker placement. Next of Kin: Kathleen Shah D/C Plan: Pending Transfer
--- NOTE | 2024-09-15 13:05 | PD.RESPRO ---
Documentation for date of: 09/15/24 Subjective Subjective Interval history: Mr Shah is 74-year-old male with past medical history of ESRD on HD () secondary to diabetic nephropathy, bradycardia, insulin-dependent type 2 diabetes, hyperlipidemia, hypertension presenting to the ED on 09/13 with episode of severe dizziness followed by a fall. Patient states that the sensation lasted for one-two seconds where he felt the entire room spinning and lost balance and fell backwards. He fell infront of his who apparently saw the entire episode as it happened. Patient denies any concerning cardiac symptoms during this episode; denies any chest pain/tightness, shortness of breath, palpitations, lower extremity edema, orthopnea or PND. His last dialysis session was Satuday 09/12 and there were no acute complications post dialysis. Of note, patient was admitted in the past for bradycardia but at that time was not a candidate for PM placement secondary to anterior chest wall scarring due to previous dialysis catheter insertions. Patient was told to follow-up with Lead Fabricator, Dr. Orantes, who saw the patient on 09/08 in the clinic and told him to follow-up sometime in October. Of note, cardiology recommended leadless Micra pacemaker for the patient if he ever became symptomatic. Patient reported to be having a difficult time and has been grieving the loss of her daughter who passed on 09/02 secondary to a motor vehicle accident. In the ED, patient presented hypertensive (127/75), heart rate initially 69 but went as low as 30-35, respiratory rate 19, afebrile saturating 99 on room air. Pertinent lab findings included hemoglobin 11.7, MCV 94, platelet 160, sodium 134, potassium 5.6, BUN 35, creatinine 4.8, magnesium 2.3, troponin within normal, BNP 528, free T40.96. Cervical, head, lumbar, thoracic CT were negative for any acute processes; EKG did show signs of complete heart block. Home Medications: Diphenoxylate?atropine, gabapentin, Januvia, lactulose, midodrine, montelukast, boost glucose control, on incentive, ropinirole, sevelamer, Velphoro, Nephro-Chanell multivitamin Patient admitted for management of symptomatic bradycardia; counter top maker, Dr. Orantes, was made aware of the patient's status and will most likely consider placement of leadless pacemaker. Patient will be admitted to ICU secondary to requiring transcutaneous pacing and IV dopamine for a 5-second sinus pause which occurred in the ED. 09/14/2024: Patient seen at bedside, currently in ICU, on admission potassium was 5.6, increased to 5.9 was treated with hyperkalemia protocol, no improvement received hemodialysis treatment in a.m. 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 09/15/2024: Patient seen in ICU today, and is scheduled for dialysis treatment today, monitor as he had 3 hours worth of dialysis with ultrafiltration goal of 100, labs reviewed this morning sodium 133, potassium 5, chloride 97 BUN 36, creatinine 4.6, overnight patient's heart rate was sinus, has no current complaints, patient is anxious to be transferred for pacemaker placement. Patient was accepted by [facility] in [place], pending bed. Will continue his dialysis treatment today and monitor the patient. Exam Vital Signs Temp Pulse Resp BP Pulse Ox O2 Del Method O2 Flow Rate 98.9 F 66 5 L 139/59 H 98 Room Air 2 09/15/24 12:00 09/15/24 13:00 09/15/24 13:00 09/15/24 13:00 09/15/24 13:00 09/14/24 18:00 09/14/24 05:15 Narrative Exam General: Alert and oriented x3. In no acute distress. Eyes: Legally blind right eye and mostly sees shadows with left eye HEENT: Atraumatic, normocephalic. No JVD noted. Mucosa moist. Cardiovascular: Normal S1 and S2. Normal rate and regular rhythm. Respiratory: No respiratory distress. Lungs are clear to auscultation bilaterally but decreased at the bases. No wheezing or crackles heard. Abdomen: Soft, nontender, nondistended. Skin: No rash. Warm to touch. Scars on the right side chest from previous tunneled dialysis catheter placement, left chest tunneled dialysis catheter in place, right failed AV fistula scar noted Musculoskeletal: No gross injuries. Able to move all 4 extremities. Neuro: Alert and oriented x3. No focal neuro deficits. Psych: Normal affect and mood Objective Labs 09/15/24 05:20 09/15/24 05:20 Labs: Laboratory Results - last 24 hr 09/15/24 05:20 WBC 8.0 RBC 3.78 L Hgb 11.4 L Hct 35.2 L MCV 93 MCH 30.2 MCHC 32.4 RDW Std Deviation 53.1 H Plt Count 193 Neut % (Auto) 58 Lymph % (Auto) 27 Frontier % (Auto) 10 Eos % (Auto) 4 Baso % (Auto) 0 Neut # (Auto) 4.7 Lymph # (Auto) 2.2 Frontier # (Auto) 0.8 Eos # (Auto) 0.3 Baso # (Auto) 0.0 Immature Gran # (Auto) 0.02 H Absolute Nucleated RBC 0.00 Immature Gran % 0 Nucleated RBC % 0 Sodium 133 L Potassium 5.0 Chloride 97 L Carbon Dioxide 26.5 Anion Gap 10 BUN 36 H Creatinine 4.6 H* D Estim Creat Clear Calc 11.7 L eGFR 13 L* BUN/Creatinine Ratio 8 L Glucose 86 Calculated Osmolality 273 L Calcium 9.2 Corrected Calcium 9.2 Phosphorus 4.4 Magnesium 2.3 Total Bilirubin 0.4 AST 25 ALT 28 Alkaline Phosphatase 191 H Total Protein 7.9 Albumin 4.2 Globulin 3.7 H Albumin/Globulin Ratio 1.1 L Quality Measures Quality Measures VTE prophylaxis Advance care planning discussed with:: patient Assessment & Plan Assessment Current Active Medications: Generic Name Dose Route Start Last Admin Trade Name Betitoq PRN Reason Stop Dose Admin Acetaminophen 650 mg 09/14/24 14:20 09/15/24 10:09 Acetaminophen 325 Mg Tablet PO 10/14/24 14:19 650 mg Q6HR PRN Administration Fever >101 or pain 1-3 Atropine Sulfate 0.5 mg 09/13/24 22:23 Atropine Sulf Inj 1 Mg/Ml Vial IVP 10/13/24 22:22 PRN PRN symptomatic bradycardia; HR<30 Dextrose 25 ml 09/13/24 22:20 Dextrose 50%-Water Inj 50 Ml Syringe IV 10/13/24 22:19 Q15MIN PRN BG 50-70 responsive npo pt Dextrose 50 ml 09/13/24 22:20 Dextrose 50%-Water Inj 50 Ml Syringe IV 10/13/24 22:19 Q15MIN PRN BG <50 OR BG <70 & pt unresponsive Gabapentin 100 mg 09/14/24 18:35 09/14/24 18:38 Gabapentin 100 Mg Capsule PO 10/14/24 18:34 100 mg BID FRAN Administration Glucagon 1 mg 09/13/24 22:20 Glucagon Inj 1 Mg Vial IM Q15MIN PRN BG <70, and no IV access Heparin Sodium (Porcine) 3,900 unit 09/14/24 05:23 09/15/24 10:36 Heparin Sod Inj 1000 Unit/Ml Vial 10 Ml INDWELLCAT 09/28/24 05:22 3,900 unit PRN PRN Administration DIALYSIS Heparin Sodium (Porcine) 5,000 unit 09/14/24 22:00 09/15/24 05:39 Heparin Sod Inj 5000 Unit/Ml Vial SC 09/28/24 21:59 5,000 unit TID FRAN Administration Dopamine HCl/Dextrose 400 mg in 250 mls @ 10.546 mls/hr 09/13/24 23:24 09/15/24 03:11 Intropin In D5w Ivpb IV 10/13/24 23:23 0 mcg/kg/min .[id number] FRAN 0 mls/hr Titration Protocol 5 MCG/KG/MIN Albumin Human 25 gm in 100 mls @ 100 mls/min 09/14/24 01:17 09/15/24 09:03 Albuminar-25 Ivpb IV 100 mls/min PRN PRN Administration DIALYSIS Insulin Glargine 6 unit 09/14/24 21:00 09/14/24 21:28 Insulin Glargine (Lantus) 5 Unit/0.05 Ml (Per 5 Units) SC 10/14/24 20:59 6 unit HS FRAN Administration Insulin Human Lispro 0 unit 09/14/24 07:30 09/15/24 11:21 Insulin Lispro (Admelog) 1 Unit/0.01 Ml Unit SC 10/14/24 07:29 Not Given ACHS [facility] Protocol Lidocaine 1 patch 09/14/24 21:18 09/14/24 21:33 Lidocaine 5% 1 Patch TOP 10/14/24 21:29 1 patch DAILY PRN Administration PAIN SCALE 4-6 (Moderate Ondansetron HCl 4 mg 09/13/24 22:20 09/15/24 02:50 Ondansetron Inj 2 Mg/Ml Inj 2 Ml IV 10/13/24 22:19 4 mg Q6H PRN Administration NAUSEA OR VOMITING Protocol Ropinirole HCl 2 mg 09/15/24 09:00 09/15/24 09:24 Ropinirole Hcl 1 Mg Tablet PO 10/15/24 08:59 2 mg BID FRAN Administration Sennosides 1 tab 09/14/24 09:00 09/14/24 11:00 Senna Tablet PO 10/14/24 08:59 1 tab QDAY FRAN Administration Protocol Plan Summary: Mr. Shah is a 74-year-old male ith past medical history of ESRD on HD () secondary to diabetic nephropathy, bradycardia, insulin-dependent type 2 diabetes, hyperlipidemia, hypertension presenting to the ED on 09/13 with episode of severe dizziness followed by a fall. Patient admitted for management of symptomatic bradycardia, nephrology consulted for hyperkalemia and end-stage renal disease. # Hyperkalemia # ESRD on dialysis () On admission patient's potassium 5.6, increased to 5.9, was given treatment per hyperkalemia protocol, no improvement in potassium level Received partial hemodialysis treatment for 2.5 hours, 0.65 L removed Potassium level this morning 3.9 Patient established outpatient for hemodialysis on Saturday and Saturday, did report receiving dialysis treatment on Saturday. Plan: -Will receive hemodialysis today, scheduled for 3-hour session -Will continue with inpatient dialysis -Potassium in morning was 5.0, will continue to monitor -Patient pending transfer to [facility] for pacemaker placement #Symptomatic Bradycardia #Complete Heart Block, less likely 2nd Degree AV Block, Mobitz type II #Sinus Pause #Hypertension #Hyperlipidemia #ESRD on HD () #Diabetic Nephropathy #Hyperkalemia, resolved #Insulin-dependent Type 2 Diabetes Mellitus #Restless Leg Syndrome #Anemia of Chronic Disease -Management per ICU team, cardiology consulted. Case discussed with Attending Dr. Chand. Minoo Altman PGY1 Attending Provider Attestation/Addendum Patient seen and examined with resident physician Dr. Altman. Note reviewed, agree with findings and recommendations. Patient currently seen in ICU. Patient currently seen on dialysis. Tolerating dialysis without any problems. Hemodialysis for 3 hours, 2K, ultrafiltration 102 L, Epogen 6000, no heparin ordered. Plan of care discussed with the dialysis nurse. Please see dialysis flowsheet for further details.
--- NOTE | 2024-09-15 13:41 | ESPR_ITS ---
<Statement entered by Elan Yuan MD - 09/16/24 08:31> TOTAL CC TIME: 45 MIN I saw and evaluated the patient. I reviewed the resident?s note and agree with findings and plan as documented in the resident?s note. Upon my evaluation, this patient had a high probability of imminent or life- threatening deterioration due to complete heart block on dopamine drip and external pacer set at 44, which required my direct attention, intervention, and personal management. This time is exclusive of time spent on procedures, which are documented separately if performed. Documentation for date of: 09/15/24 Subjective Subjective Interval history: Mr Shah is a 74-year-old male with past medical history of ESRD on HD () secondary to diabetic nephropathy, bradycardia, insulin-dependent type 2 diabetes, hyperlipidemia, hypertension presenting to the ED on 09/13 with episode of severe dizziness followed by a fall. Patient has had multiple admissions for bradycardia, but patient seems to improve after hospitalization with heart rate in 70s and patient has been getting discharged. Patient follows up with Dr. Chand for dialysis needs; last session was [facility] 09/12 and there were no acute complications post dialysis. Of note, patient was admitted in the past for bradycardia but at that time was not a candidate for PM placement secondary to anterior chest wall scarring due to previous dialysis catheter insertions. Patient was told to follow-up with Upholstery Covers Inspector, Dr. Orantes, who saw the patient on 09/08 in the clinic and told him to follow-up sometime in October. Of note, cardiology recommended leadless Micra pacemaker for the patient if he ever became symptomatic. Patient has been having a difficult time and has been grieving the loss of her daughter who passed on 09/02 secondary to a motor vehicle accident. 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 However, due to unavailability of beds, patient transfer was unsuccessful. Once the bed will be available, patient will be transferred. 09/15/2024: The patient was interviewed and examined at the bedside this morning. He complained of mild superficial left-sided chest pain, and that was precipitated by pressure over left chest wall. Overnight, he did not had any episodes of bradycardia. Dopamine drip was discontinued. However, this morning the patient was having multiple shock delivered by temporary pacemaker, and back of pacemaker was turned down to 36/min. He received another session of hemodialysis this morning. CBC at baseline, CMP significant for ESRD. The patient will be transferred to [facility] especially at the [facility] [place]. Exam Vital Signs Temp Pulse Resp BP Pulse Ox O2 Del Method O2 Flow Rate 98.9 F 66 5 L 139/59 H 98 Room Air 2 09/15/24 12:00 09/15/24 13:00 09/15/24 13:00 09/15/24 13:00 09/15/24 13:00 09/14/24 18:00 09/14/24 05:15 Narrative Exam General: No acute distress, Alert and Oriented HEENT: Moist mucous membranes, oropharynx clear Neck: Supple, No masses, No JVD CVS: HR in 70's, No murmurs, rubs or gallops, tender to touch on left chest Lungs: Clear to auscultation with no accessory use, no wheeze no rhonchi Abd: Soft, NT/ND, +BS, no organomegaly Ext: No edema, warm and well perfused Skin: No rash Psych: Mildly somnolent Objective Labs 09/15/24 05:20 09/15/24 05:20 Labs: Laboratory Results - last 24 hr 09/15/24 05:20 WBC 8.0 RBC 3.78 L Hgb 11.4 L Hct 35.2 L MCV 93 MCH 30.2 MCHC 32.4 RDW Std Deviation 53.1 H Plt Count 193 Neut % (Auto) 58 Lymph % (Auto) 27 Stevens % (Auto) 10 Eos % (Auto) 4 Baso % (Auto) 0 Neut # (Auto) 4.7 Lymph # (Auto) 2.2 Stevens # (Auto) 0.8 Eos # (Auto) 0.3 Baso # (Auto) 0.0 Immature Gran # (Auto) 0.02 H Absolute Nucleated RBC 0.00 Immature Gran % 0 Nucleated RBC % 0 Sodium 133 L Potassium 5.0 Chloride 97 L Carbon Dioxide 26.5 Anion Gap 10 BUN 36 H Creatinine 4.6 H* D Estim Creat Clear Calc 11.7 L eGFR 13 L* BUN/Creatinine Ratio 8 L Glucose 86 Calculated Osmolality 273 L Calcium 9.2 Corrected Calcium 9.2 Phosphorus 4.4 Magnesium 2.3 Total Bilirubin 0.4 AST 25 ALT 28 Alkaline Phosphatase 191 H Total Protein 7.9 Albumin 4.2 Globulin 3.7 H Albumin/Globulin Ratio 1.1 L Quality Measures Quality Measures VTE prophylaxis Advance care planning discussed with:: other Assessment & Plan Assessment Current Active Medications: Generic Name Dose Route Start Last Admin Trade Name Betitoq PRN Reason Stop Dose Admin Acetaminophen 650 mg 09/14/24 14:20 09/15/24 10:09 Acetaminophen 325 Mg Tablet PO 10/14/24 14:19 650 mg Q6HR PRN Administration Fever >101 or pain 1-3 Atropine Sulfate 0.5 mg 09/13/24 22:23 Atropine Sulf Inj 1 Mg/Ml Vial IVP 10/13/24 22:22 PRN PRN symptomatic bradycardia; HR<30 Dextrose 25 ml 09/13/24 22:20 Dextrose 50%-Water Inj 50 Ml Syringe IV 10/13/24 22:19 Q15MIN PRN BG 50-70 responsive npo pt Dextrose 50 ml 09/13/24 22:20 Dextrose 50%-Water Inj 50 Ml Syringe IV 10/13/24 22:19 Q15MIN PRN BG <50 OR BG <70 & pt unresponsive Gabapentin 100 mg 09/14/24 18:35 09/14/24 18:38 Gabapentin 100 Mg Capsule PO 10/14/24 18:34 100 mg BID FRAN Administration Glucagon 1 mg 09/13/24 22:20 Glucagon Inj 1 Mg Vial IM Q15MIN PRN BG <70, and no IV access Heparin Sodium (Porcine) 3,900 unit 09/14/24 05:23 09/15/24 10:36 Heparin Sod Inj 1000 Unit/Ml Vial 10 Ml INDWELLCAT 09/28/24 05:22 3,900 unit PRN PRN Administration DIALYSIS Heparin Sodium (Porcine) 5,000 unit 09/14/24 22:00 09/15/24 05:39 Heparin Sod Inj 5000 Unit/Ml Vial SC 09/28/24 21:59 5,000 unit TID FRAN Administration Dopamine HCl/Dextrose 400 mg in 250 mls @ 10.546 mls/hr 09/13/24 23:24 09/15/24 03:11 Intropin In D5w Ivpb IV 10/13/24 23:23 0 mcg/kg/min .[id number] FRAN 0 mls/hr Titration Protocol 5 MCG/KG/MIN Albumin Human 25 gm in 100 mls @ 100 mls/min 09/14/24 01:17 09/15/24 09:03 Albuminar-25 Ivpb IV 100 mls/min PRN PRN Administration DIALYSIS Insulin Glargine 6 unit 09/14/24 21:00 09/14/24 21:28 Insulin Glargine (Lantus) 5 Unit/0.05 Ml (Per 5 Units) SC 10/14/24 20:59 6 unit HS FRAN Administration Insulin Human Lispro 0 unit 09/14/24 07:30 09/15/24 11:21 Insulin Lispro (Admelog) 1 Unit/0.01 Ml Unit SC 10/14/24 07:29 Not Given ACHS [facility] Protocol Lidocaine 1 patch 09/14/24 21:18 09/14/24 21:33 Lidocaine 5% 1 Patch TOP 10/14/24 21:29 1 patch DAILY PRN Administration PAIN SCALE 4-6 (Moderate Ondansetron HCl 4 mg 09/13/24 22:20 09/15/24 02:50 Ondansetron Inj 2 Mg/Ml Inj 2 Ml IV 10/13/24 22:19 4 mg Q6H PRN Administration NAUSEA OR VOMITING Protocol Ropinirole HCl 2 mg 09/15/24 09:00 09/15/24 09:24 Ropinirole Hcl 1 Mg Tablet PO 10/15/24 08:59 2 mg BID FRAN Administration Sennosides 1 tab 09/14/24 09:00 09/14/24 11:00 Senna Tablet PO 10/14/24 08:59 1 tab QDAY FRAN Administration Protocol Plan 74-year-old male with past medical history of ESRD on HD () secondary to diabetic nephropathy, bradycardia, insulin-dependent type 2 diabetes, hyperlipidemia, hypertension presenting to the ED on 09/13 with episode of severe dizziness followed by a fall will be admitted for observation and management of symptomatic bradycardia; cardiology, Dr. Orantes, is aware of the patient's status and will most likely consider placement of leadless pacemaker. 09/15/2024: The patient was interviewed and examined at the bedside this morning. He complained of mild superficial left-sided chest pain, and that was precipitated by pressure over left chest wall. Overnight, he did not had any episodes of bradycardia. Dopamine drip was discontinued. However, this morning the patient was having multiple shock delivered by temporary pacemaker, and back of pacemaker was turned down to 36/min. He received another session of hemodialysis this morning. CBC at baseline, CMP significant for ESRD. The patient will be transferred to [facility] at the [facility] [place]. Neuro no acute process CVS #Symptomatic Bradycardia 2/2 #Complete Heart Block #Sinus Pause Likely 2/2 to electrolyte abnormalities and ESRD status Presenting with episode of dizziness and falling backwards; denies concerning cardiac symptoms as noted in HPI Recent echo from March 2024 was reviewed and it showed normal LV function, normal RV function. Mild aortic valve sclerosis without stenosis In the ED, patient's HR initially fluctuated between 30-40 Patient had episode of sinus pause of 5 seconds while in the process of being admitted Plan: Patient has been awaiting for bed to be available at [facility] [place] Transcutaneous pacing IV Dopamine drip as needed, currently stopped Treat likely precipitating factor; hyperkalemia as noted below Dr. Orantes, Cardiology, following - will do transvenous pacing if necessary #Hypertension #Hyperlipidemia Chronic medical problems not pertinent to following admission Patient not on medications for the following conditions -We will hold midodrine given bradycardia Plan: Monitor blood pressure while in the hospital Respiratory No acute process Renal #ESRD on HD (//) #Diabetic Nephropathy Has been on dialysis for 16 years secondary to diabetic nephropathy He follows up with Dr. 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 Chand will follow the patient while admitted Received 2nd session of inpatient HD this morning #Hyperkalemia, resolved Patient presenting with elevated potassium; last dialysis session as noted above In the ED, given 1g of calcium gluconate and IV insulin with dextrose Plan: Follow-up morning labs Endocrine #Insulin-dependent Type 2 Diabetes Mellitus Last A1c of 5.9 08/30 Patient apparently uses insulin as needed; roughly 20u of levemir Plan: SSI A Insulin Glargine 4 units at night #Diabetic Nephropathy #Restless Leg Syndrome #Elevated TSH Patient is on Gabapentin 100mg po bid and Ropinirole 2mg po bid Patient has elevated TSH on prior admissions but T4 has been wnl Plan: Restarted home medications GI No acute process ID No acute process Heme #Normocytic Anemia #Anemia of Chronic Disease Patient has anemia secondary to ESRD status Past iron panels have shown decreased iron but elevated ferritin Patient's current Hgb within acceptable level for dialysis patient; 11.7 Does not require EPO at this time Plan: Monitor with AM labs Follow-up with nephrology Health Maintainance: Lines - PIV, L-sided vasc cath Bowel - Senna Diet -Cardiac GI prophylaxis - protonix DVT prophylaxis - Heparin SQ Dispo - Symptomatic bradycardia; cardiology consulted - appreciate recommendations, will be transferred to [facility]. Code - Full The patient's management plan was discussed with my attending physician MD Don Mendoza MD, PGY2
--- NOTE | 2024-09-15 19:48 | PC.NURSE ---
Contacted ambulance dispatch to clarify if ambulance requires a nurse to transport patient with the external pacemaker. Per ambulance ground operations supervisor Obdulio, a nurse is required to go with patient.
[2024-09-15] MEDS: GABAPENTIN 100 MG CAPSULE PO (21:05)
[2024-09-16] VITALS (29 sets, daily range): BP systolic 97–178; BP diastolic 44–105; PULSE 65–79; RESP 0–19; TEMP 35.8–36.6; O2SAT 95–100; BMI 21.1
[2024-09-16] MEDS: MELATONIN 3 MG TABLET PO (00:18)
[2024-09-16 06:05] LABS: Basophils % (Auto) 0 % (0-2.5); Eosinophils # (Auto) 0.2 Thou/mm3 (0.0-0.5); Eosinophils % (Auto) 4 % (0-10); Hematocrit 33.2 % (41.0-53.0); Hemoglobin 10.9 g/dL (13.5-16.0); Immature Granulocytes % (Auto) 0 % (0-0); Immature Granulocytes Auto 0.01 Thou/mm3 (0.00-0.00); Lymphocytes % (Auto) 35 % (10-50); Mean Corpuscular HGB Conc 32.8 g/dl (31.0-37.0); Mean Corpuscular Volume 92 fL (80-100); Monocytes # (Auto) 0.7 Thou/mm3 (0.0-0.8); Monocytes % (Auto) 12 % (0-12); Neutrophils # (Auto) 2.7 Thou/mm3 (1.8-7.7); Neutrophils % (Auto) 48 % (37-80); Nucleated Red Blood Cell % 0 /100 WBC (0); Platelet Count 130 Thou/mm3 (140-440); RDW Standard Deviation 50.9 fL (35.1-43.9); Red Blood Count 3.63 Miln/mm3 (4.50-5.90); White Blood Count 5.5 Thou/mm3 (3.8-10.6)
[2024-09-16] MEDS: HEPARIN SOD INJ 5000 UNIT/ML VIAL SC ×3 (06:08→21:14)
[2024-09-16 06:42] LABS: Alanine Aminotransferase 18 U/L (10-49); Albumin, Serum 4.3 gm/dL (3.4-4.8); Albumin/Globulin Ratio 1.3 (1.2-2.2); Alkaline Phosphatase 154 U/L (46-116); Anion Gap 10 (7-16); Aspartate Amino Transferase 21 U/L (0-34); BUN/Creatinine Ratio 6 Ratio (12-20); Bilirubin,Total 0.5 mg/dL (0.3-1.2); Blood Urea Nitrogen 20 mg/dL (9-23); Calcium 9.1 mg/dL (8.3-10.6); Calcium (Corrected) 9.1 mg/dL (8.5-10.1); Carbon Dioxide 25.9 mMol/L (20.0-31.0); Chloride 97 mMol/L (98-107); Creatinine (Component) 3.5 mg/dL (0.6-1.3); Estimated Creatinine Clearance 15.5 mL/min (>60); Globulin 3.3 gm/dL (2.3-3.5); Glucose 63 mg/dL (74-106); Magnesium 2.1 mg/dL (1.6-2.6); Osmolality,Calculated 266 (275-295); Phosphorous 4.3 mg/dL (2.4-5.1); Potassium 4.5 mMol/L (3.4-5.1); Sodium 133 mMol/L (136-145); Total Protein 7.6 gm/dL (5.7-8.2); eGFR 18 See Note
[2024-09-16] MEDS: SENNA TABLET 1 TAB PO (08:35)
[2024-09-16] MEDS: GABAPENTIN 100 MG CAPSULE PO ×2 (08:35→20:36)
[2024-09-16] MEDS: LIDOCAINE 5% 1 PATCH TOP (08:36)
[2024-09-16] MEDS: rOPINIRole HCL 1 MG TABLET 2 MG PO ×2 (08:36→20:36)
--- NOTE | 2024-09-16 11:22 | ESPR_ITS ---
Documentation for date of: 09/16/24 Subjective Subjective Interval history: Patient seen at bedside this morning. No overnight events. Telemetry reviewed and patient's heart rate has been in the 50s to 70s most of the time except that it is lower when he is sleeping. He did have increased use of pacer pads yesterday as his backup rate was at 40 bpm Recommend to decrease the backup rate for 30 bpm as at times patient blood heart rate is in the 30s. Patient is no longer on dopamine drip and is maintaining his own rate and rhythm at the present point of time. Denies any kind of cardiac in place. As discussed previously patient has been accepted to [facility] and is awaiting a bed placement. Recommend to keep potassium between 4 and 5 at all the times and magnesium greater than 2.0. Patient to be transferred today or tomorrow based on the bed availability. Exam Vital Signs Temp Pulse Resp BP Pulse Ox O2 Del Method O2 Flow Rate 97 F 66 6 L 141/74 H 98 Room Air 2 09/16/24 08:01 09/16/24 11:00 09/16/24 11:00 09/16/24 11:00 09/16/24 11:00 09/16/24 03:01 09/14/24 05:15 Narrative Exam General: Alert and oriented x3. In no acute distress. Eyes: Legally blind right eye and mostly sees shadows with left eye HEENT: Atraumatic, normocephalic. No JVD noted. Mucosa moist. Cardiovascular: Normal S1 and S2. Normal rate and regular rhythm. 3 or 6 systolic murmur heard in the apex as well as the right parasternal border. Respiratory: No respiratory distress. Lungs are clear to auscultation bilaterally but decreased at the bases. No wheezing or crackles heard. Abdomen: Soft, nontender, nondistended. Skin: No rash. Warm to touch. Scars on the right side chest from previous tunneled dialysis catheter placement, left chest tunneled dialysis catheter in place, right failed AV fistula scar noted Musculoskeletal: No gross injuries. Able to move all 4 extremities. Neuro: Alert and oriented x3. No focal neuro deficits. Psych: Normal affect and mood Objective Labs 09/17/24 05:23 09/17/24 05:23 Labs: Laboratory Results - last 24 hr 09/16/24 05:37 WBC 5.5 RBC 3.63 L Hgb 10.9 L Hct 33.2 L MCV 92 MCH 30.0 MCHC 32.8 RDW Std Deviation 50.9 H Plt Count 130 L D Neut % (Auto) 48 Lymph % (Auto) 35 [place] % (Auto) 12 Eos % (Auto) 4 Baso % (Auto) 0 Neut # (Auto) 2.7 Lymph # (Auto) 2.0 [place] # (Auto) 0.7 Eos # (Auto) 0.2 Baso # (Auto) 0.0 Immature Gran # (Auto) 0.01 H Absolute Nucleated RBC 0.00 Immature Gran % 0 Nucleated RBC % 0 Sodium 133 L Potassium 4.5 D Chloride 97 L Carbon Dioxide 25.9 Anion Gap 10 BUN 20 Creatinine 3.5 H D Estim Creat Clear Calc 15.5 L eGFR 18 L BUN/Creatinine Ratio 6 L Glucose 63 L Calculated Osmolality 266 L Calcium 9.1 Corrected Calcium 9.1 Phosphorus 4.3 Magnesium 2.1 Total Bilirubin 0.5 AST 21 ALT 18 Alkaline Phosphatase 154 H D Total Protein 7.6 Albumin 4.3 Globulin 3.3 Albumin/Globulin Ratio 1.3 Assessment & Plan A&P Narrative This is a well-known to me 73-year-old male from prior hospital admissions and follows up in my office with past medical history of intermittent high degree AV block including complete AV block but with good ventricular escape rhythm last admissions including March 2024, ESRD with failed right AV fistula and has left tunneled dialysis catheter on left subclavian vein (HD //), hypertension, IDDM, hyperlipidemia, diabetic nephropathy and retinopathy, GERD, restless leg syndrome, and 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 1. Symtpomatic severe bradycardia 2. Intermittent high degree AV block Mobitz type II as well as complete heart block 3. Ground-level fall 4. Dizziness ?Patient has been admitted to the hospital multiple times in the past few months with the most recent being on 08/29/2024 due to bradycardia during dialysis ?On last admission patient was also severely bradycardic, but at this time he had good rescue rate rhythm as well as chronotropic response. ? During this admission patient states that he stood up from his bed to go to the fridge and had a dizzy spell which led to him having a ground-level fall. Patient on admission was hyperkalemic which could have contributed to patient's bradycardia. ? Patient was placed on dopamine drip overnight and has maintained heart rate in the 90s and blood pressure stable at this time. ? Given patient has significant scar tissue in the right upper side chest and a tunneled dialysis catheter on the left subclavian vein we do not have good access for pacemaker. ? 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 Plan: ?Recommend to transfer patient to [facility] for placement of leadless pacemaker Micra - -Dr. Orantes spoke to Dr.Gurjit Agapito Fernandez-power saw operator at [facility] on [facility] who accepted the patient and is willing to do the Micra leadless pacemaker. Informed the primary and ICU team to continue the patient on the dopamine drip for now continue to have external pacer pads on place and contact the ICU team at [facility] for transfer and then consult power saw operator there. ?Recommend to continue dopamine drip and external pacemaker ?Avoid any rate controlling medications such as calcium channel blockers and beta-blockers 09/16/2024: No overnight events. Telemetry reviewed and patient's heart rate has been in the 50s to 70s most of the time except that it is lower when he is sleeping. He did have increased use of pacer pads yesterday as his backup rate was at 40 bpm Recommend to decrease the backup rate for 30 bpm as at times patient blood heart rate is in the 30s. Patient is no longer on dopamine drip and is maintaining his own rate and rhythm at the present point of time. Denies any kind of cardiac in place. As discussed previously patient has been accepted to [facility] and is awaiting a bed placement. Recommend to keep potassium between 4 and 5 at all the times and magnesium greater than 2.0. Patient to be transferred today or tomorrow based on the bed availability. 4.ESRD on hemodialysis Saturday, , Saturday (failed right AV fistula, has left tunneled dialysis cath) 5. Hyperkalemia ?Patient's potassium was 5.6, creatinine 4.8, and BUN 35 on admission ?Received hemodialysis ?Continue management as per primary care team 6. Essential hypertension ?On admission patient had blood pressure of 157/75 ?Currently blood pressure is 108/61 ?Patient seems to be on midodrine 10 mg 4 times daily at home most likely due to dialysis Plan: ?Recommend to keep systolic blood pressure around 140-150 ?Recommend IV hydralazine as needed for systolic blood pressure above 180 7. Hypothyroidism ?TSH 6.72 and free T4 0.96 on admission ?Recommend follow-up outpatient with land survey technician ?Continue management as per primary care team 8. DM2 9. Diabetic neuropathy 10. Diabetic nephropathy ?Patient is legally blind from the right eye and left eye he mostly sees shadows ?Patient has end-stage renal disease likely due to diabetic nephropathy ?Continue management as per primary care team 11. Hyperlipidemia ?Labs on 08/30/2024 showed triglycerides 123, cholesterol 123, LDL 49, HDL 49 ?Continue management as per primary care team 12. GERD ?Patient is on pantoprazole 40 mg daily at home ?Recommend to continue during hospital stay 13. Restless leg syndrome ?Patient is on ropinirole 2 mg twice daily at home ? Recommend to continue during hospital stay Management of rest of the medical conditions as per primary team and other consultants. Thank you for the consult and allowing me to participate in the care of the patient. Cardiology will continue to follow. Fuad Orantes M.D. Interventional Cardiology Time Spent With Patient Time: Total time spent is greater than 50% in coordination of care (as documented) at patient's floor/unit and/or counseling patient:
--- NOTE | 2024-09-16 11:41 | PC.CM ---
Addendum entered by Deborah Manning RN 09/16/24 16:32: 1628 spoke to [facility] regarding update, still waiting for bed. Original Note: 0999 spoke to Maribel at [facility] regarding update. Maribel informed me that still waiting for bed.
[2024-09-16] MEDS: ONDANSETRON INJ 2 MG/ML INJ 2 ML 4 MG IV (12:03)
--- NOTE | 2024-09-16 12:48 | ESPR_ITS ---
<Statement entered by Elan Yuan MD - 09/17/24 14:17> TOTAL TIME: 45MINUTES ON DIRECT MEDICAL CARE, MANAGEMENT - COORDINATION AND COUNSELING > 50% OF TOTAL TIME I saw and evaluated the patient. I reviewed the resident?s note and agree with findings and plan as documented in the resident?s note. Documentation for date of: 09/16/24 Subjective Subjective Interval history: Mr Shah is a 74-year-old male with past medical history of ESRD on HD () secondary to diabetic nephropathy, bradycardia, insulin-dependent type 2 diabetes, hyperlipidemia, hypertension presenting to the ED on 09/13 with episode of severe dizziness followed by a fall. Patient has had multiple admissions for bradycardia, but patient seems to improve after hospitalization with heart rate in 70s and patient has been getting discharged. Patient follows up with Dr. Chand for dialysis needs; last session was Satuday 09/12 and there were no acute complications post dialysis. Of note, patient was admitted in the past for bradycardia but at that time was not a candidate for PM placement secondary to anterior chest wall scarring due to previous dialysis catheter insertions. Patient was told to follow-up with Meal Cooker, Dr. Orantes, who saw the patient on 09/08 in the clinic and told him to follow-up sometime in October. Of note, cardiology recommended leadless Micra pacemaker for the patient if he ever became symptomatic. Patient has been having a difficult time and has been grieving the loss of her daughter who passed on 09/02 secondary to a motor vehicle accident. 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 However, due to unavailability of beds, patient transfer was unsuccessful. Once the bed will be available, patient will be transferred. 09/15/2024: The patient was interviewed and examined at the bedside this morning. He complained of mild superficial left-sided chest pain, and that was precipitated by pressure over left chest wall. Overnight, he did not had any episodes of bradycardia. Dopamine drip was discontinued. However, this morning the patient was having multiple shock delivered by temporary pacemaker, and back of pacemaker was turned down to 36/min. He received another session of hemodialysis this morning. CBC at baseline, CMP significant for ESRD. The patient will be transferred to [facility] especially at the [facility] [place]. 09/16/2024: The patient was interviewed and examined at the bedside this morning. He reported doing better. He reported improvement in his superficial chest pain, but complained of mild nausea. Overnight, he did not had any episode of bradycardia. His electrolytes has been stable. he is labs are significant for ESRD. He is still awaiting for bed at [facility] [place]. Exam Vital Signs Temp Pulse Resp BP Pulse Ox O2 Del Method O2 Flow Rate 97 F 72 16 168/84 H 98 Room Air 2 09/16/24 08:01 09/16/24 12:01 09/16/24 12:09/16/24 12:09/16/24 12:09/16/24 03:01 09/14/24 05:15 Narrative Exam General: No acute distress, Alert and Oriented HEENT: Moist mucous membranes, oropharynx clear Neck: Supple, No masses, No JVD CVS: HR in 70's, No murmurs, rubs or gallops, tender to touch on left chest Lungs: Clear to auscultation with no accessory use, no wheeze no rhonchi Abd: Soft, NT/ND, +BS, no organomegaly Ext: No edema, warm and well perfused Skin: No rash Psych: Appropriate mood and affect Objective Labs 09/16/24 05:37 09/16/24 05:37 Labs: Laboratory Results - last 24 hr 09/16/24 05:37 WBC 5.5 RBC 3.63 L Hgb 10.9 L Hct 33.2 L MCV 92 MCH 30.0 MCHC 32.8 RDW Std Deviation 50.9 H Plt Count 130 L D Neut % (Auto) 48 Lymph % (Auto) 35 [place] % (Auto) 12 Eos % (Auto) 4 Baso % (Auto) 0 Neut # (Auto) 2.7 Lymph # (Auto) 2.0 [place] # (Auto) 0.7 Eos # (Auto) 0.2 Baso # (Auto) 0.0 Immature Gran # (Auto) 0.01 H Absolute Nucleated RBC 0.00 Immature Gran % 0 Nucleated RBC % 0 Sodium 133 L Potassium 4.5 D Chloride 97 L Carbon Dioxide 25.9 Anion Gap 10 BUN 20 Creatinine 3.5 H D Estim Creat Clear Calc 15.5 L eGFR 18 L BUN/Creatinine Ratio 6 L Glucose 63 L Calculated Osmolality 266 L Calcium 9.1 Corrected Calcium 9.1 Phosphorus 4.3 Magnesium 2.1 Total Bilirubin 0.5 AST 21 ALT 18 Alkaline Phosphatase 154 H D Total Protein 7.6 Albumin 4.3 Globulin 3.3 Albumin/Globulin Ratio 1.3 Quality Measures Quality Measures VTE prophylaxis Advance care planning discussed with:: patient Assessment & Plan Assessment Current Active Medications: Generic Name Dose Route Start Last Admin Trade Name Freq PRN Reason Stop Dose Admin Acetaminophen 650 mg 09/14/24 14:20 09/15/24 19:14 Acetaminophen 325 Mg Tablet PO 10/14/24 14:19 650 mg Q6HR PRN Administration Fever >101 or pain 1-3 Atropine Sulfate 0.5 mg 09/16/24 06:37 Atropine Sulf Inj 0.1 Mg/Ml Syr 10 Ml IVP 10/13/24 22:22 PRN PRN symptomatic bradycardia; HR<30 Dextrose 25 ml 09/13/24 22:20 Dextrose 50%-Water Inj 50 Ml Syringe IV 10/13/24 22:19 Q15MIN PRN BG 50-70 responsive npo pt Dextrose 50 ml 09/13/24 22:20 Dextrose 50%-Water Inj 50 Ml Syringe IV 10/13/24 22:19 Q15MIN PRN BG <50 OR BG <70 & pt unresponsive Gabapentin 100 mg 09/14/24 18:35 09/16/24 08:35 Gabapentin 100 Mg Capsule PO 10/14/24 18:34 100 mg BID FRAN Administration Glucagon 1 mg 09/13/24 22:20 Glucagon Inj 1 Mg Vial IM Q15MIN PRN BG <70, and no IV access Heparin Sodium (Porcine) 3,900 unit 09/14/24 05:23 09/15/24 10:36 Heparin Sod Inj 1000 Unit/Ml Vial 10 Ml INDWELLCAT 09/28/24 05:22 3,900 unit PRN PRN Administration DIALYSIS Heparin Sodium (Porcine) 5,000 unit 09/14/24 22:00 09/16/24 06:08 Heparin Sod Inj 5000 Unit/Ml Vial SC 09/28/24 21:59 5,000 unit TID FRAN Administration Hydralazine HCl 10 mg 09/15/24 21:14 Hydralazine Inj 20 Mg/Ml Vial IV 10/15/24 21:14 Q6H PRN sbp>180 Dopamine HCl/Dextrose 400 mg in 250 mls @ 10.546 mls/hr 09/13/24 23:24 09/16/24 04:31 Intropin In D5w Ivpb IV 10/13/24 23:23 Not Given .[id number] FRAN Protocol 5 MCG/KG/MIN Albumin Human 25 gm in 100 mls @ 100 mls/min 09/14/24 01:17 09/15/24 09:03 Albuminar-25 Ivpb IV 100 mls/min PRN PRN Administration DIALYSIS Insulin Human Lispro 0 unit 09/15/24 17:00 09/16/24 11:22 Insulin Lispro (Admelog) 1 Unit/0.01 Ml Unit SC 10/15/24 16:59 Not Given AC [facility] Protocol Lidocaine 1 patch 09/14/24 21:18 09/16/24 08:36 Lidocaine 5% 1 Patch TOP 10/14/24 21:29 1 patch DAILY PRN Administration PAIN SCALE 4-6 (Moderate Ondansetron HCl 4 mg 09/13/24 22:20 09/16/24 12:03 Ondansetron Inj 2 Mg/Ml Inj 2 Ml IV 10/13/24 22:19 4 mg Q6H PRN Administration NAUSEA OR VOMITING Protocol Ropinirole HCl 2 mg 09/15/24 09:00 09/16/24 08:36 Ropinirole Hcl 1 Mg Tablet PO 10/15/24 08:59 2 mg BID FRAN Administration Sennosides 1 tab 09/14/24 09:00 09/16/24 08:35 Senna Tablet PO 10/14/24 08:59 1 tab QDAY FRAN Administration Protocol Plan 74-year-old male with past medical history of ESRD on HD (/) secondary to diabetic nephropathy, bradycardia, insulin-dependent type 2 diabetes, hyperlipidemia, hypertension presenting to the ED on 09/13 with episode of severe dizziness followed by a fall will be admitted for observation and management of symptomatic bradycardia; cardiology, Dr. Orantes, is aware of the patient's status and will most likely consider placement of leadless pacemaker. 09/16/2024: The patient was interviewed and examined at the bedside this morning. He reported doing better. He reported improvement in his superficial chest pain, but complained of mild nausea. Overnight, he did not had any episode of bradycardia. His electrolytes has been stable. he is labs are significant for ESRD. He is still awaiting for bed at [facility]. Neuro no acute process CVS #Symptomatic Bradycardia 2/2 #Complete Heart Block #Sinus Pause, resolved Likely 2/2 to electrolyte abnormalities and ESRD status Presenting with episode of dizziness and falling backwards; denies concerning cardiac symptoms as noted in HPI Recent echo from March 2024 was reviewed and it showed normal LV function, normal RV function. Mild aortic valve sclerosis without stenosis In the ED, patient's HR initially fluctuated between 30-40 Patient had episode of sinus pause of 5 seconds while in the process of being admitted Plan: Patient has been awaiting for bed to be available at [facility] Transcutaneous pacing IV Dopamine drip as needed, currently stopped Treat likely precipitating factor; hyperkalemia as noted below Dr. Orantes, Cardiology, following - will do transvenous pacing if necessary #Hypertension #Hyperlipidemia Chronic medical problems not pertinent to following admission Patient not on medications for the following conditions -We will hold midodrine given bradycardia Plan: Monitor blood pressure while in the hospital Respiratory No acute process Renal #ESRD on HD (T//) #Diabetic Nephropathy Has been on dialysis for 16 years secondary to diabetic nephropathy He follows up with Dr. 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 Chand will follow the patient while admitted Received 2nd session of inpatient HD yesterday #Hyperkalemia, resolved Patient presenting with elevated potassium; last dialysis session as noted above In the ED, given 1g of calcium gluconate and IV insulin with dextrose Plan: Follow-up morning labs Endocrine #Insulin-dependent Type 2 Diabetes Mellitus Last A1c of 5.9 08/30 Patient apparently uses insulin as needed; roughly 20u of levemir Plan: SSI A Discontinued Lantus 4 U at night #Diabetic Nephropathy #Restless Leg Syndrome #Elevated TSH Patient is on Gabapentin 100mg po bid and Ropinirole 2mg po bid Patient has elevated TSH on prior admissions but T4 has been wnl Plan: Restarted home medications GI No acute process ID No acute process Heme #Normocytic Anemia #Anemia of Chronic Disease Patient has anemia secondary to ESRD status Past iron panels have shown decreased iron but elevated ferritin Patient's current Hgb within acceptable level for dialysis patient; 11.7 Does not require EPO at this time Plan: Monitor with AM labs Follow-up with nephrology Health Maintainance: Lines - PIV, L-sided vasc cath Bowel - Senna Diet -Cardiac GI prophylaxis - protonix DVT prophylaxis - Heparin SQ Dispo - Symptomatic bradycardia; cardiology consulted - appreciate recommendations, will be transferred to [facility]. Code - Full The patient's management plan was discussed with my attending physician MD Don Mendoza MD, PGY2
--- NOTE | 2024-09-16 14:22 | PD.RESPRO ---
Documentation for date of: 09/16/24 Subjective Subjective Interval history: Mr Shah is 74-year-old male with past medical history of ESRD on HD () secondary to diabetic nephropathy, bradycardia, insulin-dependent type 2 diabetes, hyperlipidemia, hypertension presenting to the ED on 09/13 with episode of severe dizziness followed by a fall. Patient states that the sensation lasted for one-two seconds where he felt the entire room spinning and lost balance and fell backwards. He fell infront of his who apparently saw the entire episode as it happened. Patient denies any concerning cardiac symptoms during this episode; denies any chest pain/tightness, shortness of breath, palpitations, lower extremity edema, orthopnea or PND. His last dialysis session was Satuday 09/12 and there were no acute complications post dialysis. Of note, patient was admitted in the past for bradycardia but at that time was not a candidate for PM placement secondary to anterior chest wall scarring due to previous dialysis catheter insertions. Patient was told to follow-up with Radio Frequency Engineer, Dr. Orantes, who saw the patient on 09/08 in the clinic and told him to follow-up sometime in October. Of note, cardiology recommended leadless Micra pacemaker for the patient if he ever became symptomatic. Patient reported to be having a difficult time and has been grieving the loss of her daughter who passed on 09/02 secondary to a motor vehicle accident. In the ED, patient presented hypertensive (127/75), heart rate initially 69 but went as low as 30-35, respiratory rate 19, afebrile saturating 99 on room air. Pertinent lab findings included hemoglobin 11.7, MCV 94, platelet 160, sodium 134, potassium 5.6, BUN 35, creatinine 4.8, magnesium 2.3, troponin within normal, BNP 528, free T40.96. Cervical, head, lumbar, thoracic CT were negative for any acute processes; EKG did show signs of complete heart block. Home Medications: Diphenoxylate?atropine, gabapentin, Januvia, lactulose, midodrine, montelukast, boost glucose control, on incentive, ropinirole, sevelamer, Velphoro, Nephro-Chanell multivitamin Patient admitted for management of symptomatic bradycardia; process mechanic, Dr. Orantes, was made aware of the patient's status and will most likely consider placement of leadless pacemaker. Patient will be admitted to ICU secondary to requiring transcutaneous pacing and IV dopamine for a 5-second sinus pause which occurred in the ED. 09/14/2024: Patient seen at bedside, currently in ICU, on admission potassium was 5.6, increased to 5.9 was treated with hyperkalemia protocol, no improvement received hemodialysis treatment in a.m. 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 09/15/2024: Patient seen in ICU today, and is scheduled for dialysis treatment today, monitor as he had 3 hours worth of dialysis with ultrafiltration goal of 100, labs reviewed this morning sodium 133, potassium 5, chloride 97 BUN 36, creatinine 4.6, overnight patient's heart rate was sinus, has no current complaints, patient is anxious to be transferred for pacemaker placement. Patient was accepted by [facility] in [place], pending bed. Will continue his dialysis treatment today and monitor the patient. 09/16/2024: Patient seen in ICU today, status post dialysis treatment, continues to have episodes of bradycardia, off dopamine drip currently, denies any complaints and concerns currently. Labs reviewed, patient is pending transfer for pacemaker placement. Exam Vital Signs Temp Pulse Resp BP Pulse Ox O2 Del Method O2 Flow Rate 97 F 72 16 168/84 H 98 Room Air 2 09/16/24 08:01 09/16/24 12:01 09/16/24 12:09/16/24 12:09/16/24 12:09/16/24 03:01 09/14/24 05:15 Narrative Exam General: Alert and oriented x3. In no acute distress. Eyes: Legally blind right eye and mostly sees shadows with left eye HEENT: Atraumatic, normocephalic. No JVD noted. Mucosa moist. Cardiovascular: Normal S1 and S2. Normal rate and regular rhythm. Respiratory: No respiratory distress. Lungs are clear to auscultation bilaterally but decreased at the bases. No wheezing or crackles heard. Abdomen: Soft, nontender, nondistended. Skin: No rash. Warm to touch. Scars on the right side chest from previous tunneled dialysis catheter placement, left chest tunneled dialysis catheter in place, right failed AV fistula scar noted Musculoskeletal: No gross injuries. Able to move all 4 extremities. Neuro: Alert and oriented x3. No focal neuro deficits. Psych: Normal affect and mood Objective Labs 09/17/24 05:23 09/17/24 05:23 Labs: Laboratory Results - last 24 hr 09/16/24 05:37 WBC 5.5 RBC 3.63 L Hgb 10.9 L Hct 33.2 L MCV 92 MCH 30.0 MCHC 32.8 RDW Std Deviation 50.9 H Plt Count 130 L D Neut % (Auto) 48 Lymph % (Auto) 35 [place] % (Auto) 12 Eos % (Auto) 4 Baso % (Auto) 0 Neut # (Auto) 2.7 Lymph # (Auto) 2.0 [place] # (Auto) 0.7 Eos # (Auto) 0.2 Baso # (Auto) 0.0 Immature Gran # (Auto) 0.01 H Absolute Nucleated RBC 0.00 Immature Gran % 0 Nucleated RBC % 0 Sodium 133 L Potassium 4.5 D Chloride 97 L Carbon Dioxide 25.9 Anion Gap 10 BUN 20 Creatinine 3.5 H D Estim Creat Clear Calc 15.5 L eGFR 18 L BUN/Creatinine Ratio 6 L Glucose 63 L Calculated Osmolality 266 L Calcium 9.1 Corrected Calcium 9.1 Phosphorus 4.3 Magnesium 2.1 Total Bilirubin 0.5 AST 21 ALT 18 Alkaline Phosphatase 154 H D Total Protein 7.6 Albumin 4.3 Globulin 3.3 Albumin/Globulin Ratio 1.3 Quality Measures Quality Measures VTE prophylaxis Advance care planning discussed with:: patient Assessment & Plan Assessment Current Active Medications: Generic Name Dose Route Start Last Admin Trade Name Freq PRN Reason Stop Dose Admin Acetaminophen 650 mg 09/14/24 14:20 09/15/24 19:14 Acetaminophen 325 Mg Tablet PO 10/14/24 14:19 650 mg Q6HR PRN Administration Fever >101 or pain 1-3 Atropine Sulfate 0.5 mg 09/16/24 06:37 Atropine Sulf Inj 0.1 Mg/Ml Syr 10 Ml IVP 10/13/24 22:22 PRN PRN symptomatic bradycardia; HR<30 Dextrose 25 ml 09/13/24 22:20 Dextrose 50%-Water Inj 50 Ml Syringe IV 10/13/24 22:19 Q15MIN PRN BG 50-70 responsive npo pt Dextrose 50 ml 09/13/24 22:20 Dextrose 50%-Water Inj 50 Ml Syringe IV 10/13/24 22:19 Q15MIN PRN BG <50 OR BG <70 & pt unresponsive Gabapentin 100 mg 09/14/24 18:35 09/16/24 08:35 Gabapentin 100 Mg Capsule PO 10/14/24 18:34 100 mg BID FRAN Administration Glucagon 1 mg 09/13/24 22:20 Glucagon Inj 1 Mg Vial IM Q15MIN PRN BG <70, and no IV access Heparin Sodium (Porcine) 3,900 unit 09/14/24 05:23 09/15/24 10:36 Heparin Sod Inj 1000 Unit/Ml Vial 10 Ml INDWELLCAT 09/28/24 05:22 3,900 unit PRN PRN Administration DIALYSIS Heparin Sodium (Porcine) 5,000 unit 09/14/24 22:00 09/16/24 13:41 Heparin Sod Inj 5000 Unit/Ml Vial SC 09/28/24 21:59 5,000 unit TID FRAN Administration Hydralazine HCl 10 mg 09/15/24 21:14 Hydralazine Inj 20 Mg/Ml Vial IV 10/15/24 21:14 Q6H PRN sbp>180 Dopamine HCl/Dextrose 400 mg in 250 mls @ 10.546 mls/hr 09/13/24 23:24 09/16/24 04:31 Intropin In D5w Ivpb IV 10/13/24 23:23 Not Given .[id number] FRAN Protocol 5 MCG/KG/MIN Albumin Human 25 gm in 100 mls @ 100 mls/min 09/14/24 01:17 09/15/24 09:03 Albuminar-25 Ivpb IV 100 mls/min PRN PRN Administration DIALYSIS Insulin Human Lispro 0 unit 09/15/24 17:00 09/16/24 11:22 Insulin Lispro (Admelog) 1 Unit/0.01 Ml Unit SC 10/15/24 16:59 Not Given AC [facility] Protocol Lidocaine 1 patch 09/14/24 21:18 09/16/24 08:36 Lidocaine 5% 1 Patch TOP 10/14/24 21:29 1 patch DAILY PRN Administration PAIN SCALE 4-6 (Moderate Ondansetron HCl 4 mg 09/13/24 22:20 09/16/24 12:03 Ondansetron Inj 2 Mg/Ml Inj 2 Ml IV 10/13/24 22:19 4 mg Q6H PRN Administration NAUSEA OR VOMITING Protocol Ropinirole HCl 2 mg 09/15/24 09:00 09/16/24 08:36 Ropinirole Hcl 1 Mg Tablet PO 10/15/24 08:59 2 mg BID FRNA Administration Sennosides 1 tab 09/14/24 09:00 09/16/24 08:35 Senna Tablet PO 10/14/24 08:59 1 tab QDAY FRAN Administration Protocol Plan Summary: Mr. Shah is a 74-year-old male ith past medical history of ESRD on HD () secondary to diabetic nephropathy, bradycardia, insulin-dependent type 2 diabetes, hyperlipidemia, hypertension presenting to the ED on 09/13 with episode of severe dizziness followed by a fall. Patient admitted for management of symptomatic bradycardia, nephrology consulted for hyperkalemia and end-stage renal disease. # Hyperkalemia # ESRD on dialysis () On admission patient's potassium 5.6, increased to 5.9, was given treatment per hyperkalemia protocol, no improvement in potassium level Received partial hemodialysis treatment for 2.5 hours, 0.65 L removed Potassium level this morning 3.9 Patient established outpatient for hemodialysis on Saturday and Saturday, did report receiving dialysis treatment on Saturday. Received hemodialysis treatment yesterday for 3-hour session Plan: -Will continue with inpatient dialysis -Potassium in morning was 4.5, will continue to monitor -Patient pending transfer to [facility] for pacemaker placement #Symptomatic Bradycardia #Complete Heart Block, less likely 2nd Degree AV Block, Mobitz type II #Sinus Pause #Hypertension #Hyperlipidemia #ESRD on HD () #Diabetic Nephropathy #Hyperkalemia, resolved #Insulin-dependent Type 2 Diabetes Mellitus #Restless Leg Syndrome #Anemia of Chronic Disease -Management per ICU team, cardiology consulted. Case discussed with Attending Dr. Chand. Minoo Altman PGY1 Attending Provider Attestation/Addendum patient seen and examined with resident physician Dr. Altman. Note reviewed, agree with findings and recommendations. Patient currently seen in ICU. Having breakfast. Heart rate in the 70s. Pending transfer for pacemaker.
[2024-09-16] MEDS: HYDROcodone/APAP 5/325 TABLET 1 TAB PO (14:28)
--- NOTE | 2024-09-16 15:21 | PC.SS ---
Update: Patient on room air. Pending transfer to [facility].
[2024-09-16] MEDS: ACETAMINOPHEN 325 MG TABLET 650 MG PO (20:36)
[2024-09-17] VITALS (84 sets, daily range): BP systolic 87–173; BP diastolic 40–116; PULSE 49–84; RESP 3–24; TEMP 35.9–36.4; O2SAT 94–100
[2024-09-17] MEDS: MELATONIN 3 MG TABLET PO ×2 (00:34→21:00)
[2024-09-17] MEDS: HEPARIN SOD INJ 5000 UNIT/ML VIAL SC ×3 (05:26→21:02)
[2024-09-17 05:41] LABS: Basophils % (Auto) 1 % (0-2.5); Eosinophils # (Auto) 0.3 Thou/mm3 (0.0-0.5); Eosinophils % (Auto) 5 % (0-10); Hematocrit 33.7 % (41.0-53.0); Hemoglobin 10.9 g/dL (13.5-16.0); Immature Granulocytes % (Auto) 0 % (0-0); Immature Granulocytes Auto 0.02 Thou/mm3 (0.00-0.00); Lymphocytes # (Auto) 2.1 Thou/mm3 (1.0-4.8); Lymphocytes % (Auto) 40 % (10-50); Mean Corpuscular HGB Conc 32.3 g/dl (31.0-37.0); Mean Corpuscular Hemoglobin 30.1 pg (25.0-35.0); Mean Corpuscular Volume 93 fL (80-100); Monocytes # (Auto) 0.6 Thou/mm3 (0.0-0.8); Monocytes % (Auto) 11 % (0-12); Neutrophils # (Auto) 2.2 Thou/mm3 (1.8-7.7); Neutrophils % (Auto) 43 % (37-80); Nucleated Red Blood Cell % 0 /100 WBC (0); Platelet Count 162 Thou/mm3 (140-440); RDW Standard Deviation 51.7 fL (35.1-43.9); Red Blood Count 3.62 Miln/mm3 (4.50-5.90); White Blood Count 5.2 Thou/mm3 (3.8-10.6)
[2024-09-17 06:35] LABS: Alanine Aminotransferase 17 U/L (10-49); Albumin/Globulin Ratio 1.1 (1.2-2.2); Alkaline Phosphatase 151 U/L (46-116); Anion Gap 10 (7-16); Aspartate Amino Transferase 15 U/L (0-34); BUN/Creatinine Ratio 7 Ratio (12-20); Bilirubin,Total 0.4 mg/dL (0.3-1.2); Blood Urea Nitrogen 30 mg/dL (9-23); Calcium 9.6 mg/dL (8.3-10.6); Calcium (Corrected) 9.6 mg/dL (8.5-10.1); Carbon Dioxide 25.7 mMol/L (20.0-31.0); Chloride 98 mMol/L (98-107); Creatinine (Component) 4.6 mg/dL (0.6-1.3); Globulin 3.6 gm/dL (2.3-3.5); Glucose 118 mg/dL (74-106); Magnesium 2.3 mg/dL (1.6-2.6); Osmolality,Calculated 275 (275-295); Phosphorous 5.5 mg/dL (2.4-5.1); Potassium 4.7 mMol/L (3.4-5.1); Sodium 134 mMol/L (136-145); Total Protein 7.6 gm/dL (5.7-8.2); eGFR 13 See Note
[2024-09-17 06:51] LABS: Estimated Creatinine Clearance 11.6 mL/min (>60)
--- NOTE | 2024-09-17 08:07 | PC.NURSE ---
PT REPORTS PAIN 10/10 TO BACK, MD ANN AT BEDSIDE W/ PAIN MED ORDER FOR BEDSIDE, NURSE REPORTS SHE WILL ADMIN MED WHEN AVAILABLE.
--- NOTE | 2024-09-17 08:31 | PC.NURSE ---
bp trending down. Pt denies all s/s of hypotension, will admin PRN albumin per md orders and cont. to monitor
[2024-09-17] MEDS: ALBUMIN HUMAN 25% IVPB 25 GM/100 ML BTL IV (08:32)
--- NOTE | 2024-09-17 08:41 | PC.CM ---
Addendum entered by Deborah Manning RN 09/17/24 18:36: 1836 called Claudia at [facility] and updated her. She stated she will check with Dr. Juaquin Fernandez and the brood station manager at the [facility] location and call me back. Addendum entered by Deborah Manning RN 09/17/24 18:28: [address] Castillo that he spoke to Dr. Juaquin Fernandez and Dr. Fernandez stated he can accepted the pt at any of the [facility] locations. There are 3 locations, but he prefers [facility]. Addendum entered by Deborah Manning RN 09/17/24 18:17: [address] Castillo that he tried to call Dr. Juaquin Fernandez, left VM. He will try again in 20-30mins. Addendum entered by Deborah Manning RN 09/17/24 18:07: [address] Castillo and gave the number of Dr. Juaquin Fernandez. Dr. Castillo is going to call him. [address] Duncan and updated. Dr. Duncan stated pt needs EP Dr. because pt needs leadless Micra pacemaker and there are not very many EP available around here, he stated [facility] don't have EP's. [facility] might have. He gave me the direct number for EP Dr. Juaquin Fernandez to speak to him directly to see if he has privileges at any other hospital. Dr. Duncan doesn't want me to try any other place. [phone] Castillo/resident if it's OK for me to try other places for transfer. He stated to call Dr. Duncan/cardiology to ask. Addendum entered by Deborah Manning RN 09/17/24 17:54: 1749 received call from Claudia at [facility], she stated to send today's progress notes and labs. She stated she will present the case to her other location and see if pt can have the bed there. Addendum entered by Deborah Manning RN 09/17/24 17:41: 1741 I called [facility], spoke to [facility] and updated her with pt condition. She informed me that the location where pt was accepted is [facility] previously called [facility] doesn't have any ICU bed. She stated to call other facilities. But she will still work on getting the bed for the pt. [id number] spoke to charge nurse regarding pt update. Charge nurse informed me that pt started pacing since this morning and still ICU level. Original Note: [id number] called [facility], spoke to Patti. I asked her would the bed be available if downgrade the pt. to tele bed. Patti stated if it's appropriate to downgrade the pt., can do so. But either way if pt needs ICU bed or tele bed, they still have no beds at this time. [id number] spoke to charge nurse for update on the pt. Pt is still connected to temporary pacemaker but not pacing currently. The last time it was pacing was at 09/15/24 at 0800am. We discussed to check with [facility], would the bed be available if downgrade the pt. to tele bed. [id number] spoke to Maribel at [facility] regarding availability of bed. She stated still waiting for bed. She inquired if pt still need ICU bed and I updated her pt is still ICU status.
[2024-09-17] MEDS: CYCLObenzaPRINE 5 MG TABLET PO ×2 (08:56→21:00)
[2024-09-17] MEDS: GABAPENTIN 100 MG CAPSULE PO ×2 (09:04→21:00)
[2024-09-17] MEDS: SENNA TABLET 1 TAB PO (09:04)
[2024-09-17] MEDS: rOPINIRole HCL 1 MG TABLET 2 MG PO ×2 (09:04→21:00)
[2024-09-17] MEDS: LIDOCAINE 5% 1 PATCH TOP (09:05)
--- NOTE | 2024-09-17 09:11 | PC.NURSE ---
BFR TO 250 D/T PT'S HR IN AND OUT OF BRADYCARDIA. wILL CONT. TO MONITOR
--- NOTE | 2024-09-17 09:44 | PD.RESPRO ---
Documentation for date of: 09/17/24 Subjective Subjective Interval history: Patient seen at bedside this morning. No overnight events. Only complains of back pain. Patient's lowest heart rate documented was 38 overnight and continues to have increased use of pacer pads. Patient had no cardiac complaints today. Patient is off dopamine drip. Potassium 4.7 and mg 2.3, keep above 4 and 2 respectively to avoid any arrhythmias. Patient is still pending transfer, pending bed availability. Exam Vital Signs Temp Pulse Resp BP Pulse Ox O2 Del Method O2 Flow Rate 96.6 F L 73 10 L 111/55 L 98 Room Air 2 09/17/24 07:44 09/17/24 09:30 09/17/24 08:01 09/17/24 09:30 09/17/24 08:01 09/17/24 00:00 09/14/24 05:15 Narrative Exam General: Alert and oriented x3. In no acute distress. Eyes: Legally blind right eye and mostly sees shadows with left eye HEENT: Atraumatic, normocephalic. No JVD noted. Mucosa moist. Cardiovascular: Normal S1 and S2. Normal rate and regular rhythm. 3 or 6 systolic murmur heard in the apex as well as the right parasternal border. Respiratory: No respiratory distress. Lungs are clear to auscultation bilaterally but decreased at the bases. No wheezing or crackles heard. Abdomen: Soft, nontender, nondistended. Skin: No rash. Warm to touch. Scars on the right side chest from previous tunneled dialysis catheter placement, left chest tunneled dialysis catheter in place, right failed AV fistula scar noted Musculoskeletal: No gross injuries. Able to move all 4 extremities. Neuro: Alert and oriented x3. No focal neuro deficits. Psych: Normal affect and mood Objective Labs 09/17/24 05:23 09/17/24 05:23 Labs: Laboratory Results - last 24 hr 09/17/24 05:23 WBC 5.2 RBC 3.62 L Hgb 10.9 L Hct 33.7 L MCV 93 MCH 30.1 MCHC 32.3 RDW Std Deviation 51.7 H Plt Count 162 D Neut % (Auto) 43 Lymph % (Auto) 40 [place] % (Auto) 11 Eos % (Auto) 5 Baso % (Auto) 1 Neut # (Auto) 2.2 Lymph # (Auto) 2.1 [place] # (Auto) 0.6 Eos # (Auto) 0.3 Baso # (Auto) 0.0 Immature Gran # (Auto) 0.02 H Absolute Nucleated RBC 0.00 Immature Gran % 0 Nucleated RBC % 0 Sodium 134 L Potassium 4.7 Chloride 98 Carbon Dioxide 25.7 Anion Gap 10 BUN 30 H Creatinine 4.6 H* D Estim Creat Clear Calc 11.6 L eGFR 13 L* BUN/Creatinine Ratio 7 L Glucose 118 H D Calculated Osmolality 275 Calcium 9.6 Corrected Calcium 9.6 Phosphorus 5.5 H Magnesium 2.3 Total Bilirubin 0.4 AST 15 ALT 17 Alkaline Phosphatase 151 H Total Protein 7.6 Albumin 4.0 Globulin 3.6 H Albumin/Globulin Ratio 1.1 L Quality Measures Quality Measures VTE prophylaxis Advance care planning discussed with:: patient Assessment & Plan Assessment Current Active Medications: Generic Name Dose Route Start Last Admin Trade Name Freq PRN Reason Stop Dose Admin Acetaminophen 650 mg 09/14/24 14:20 09/16/24 20:36 Acetaminophen 325 Mg Tablet PO 10/14/24 14:19 650 mg Q6HR PRN Administration Fever >101 or pain 1-3 Atropine Sulfate 0.5 mg 09/16/24 06:37 Atropine Sulf Inj 0.1 Mg/Ml Syr 10 Ml IVP 10/13/24 22:22 PRN PRN symptomatic bradycardia; HR<30 Cyclobenzaprine HCl 5 mg 09/17/24 08:36 09/17/24 08:56 Cyclobenzaprine 5 Mg Tablet PO 10/17/24 08:35 5 mg BID PRN Administration MUSCLE SPASMS Gabapentin 100 mg 09/14/24 18:35 09/17/24 09:04 Gabapentin 100 Mg Capsule PO 10/14/24 18:34 100 mg BID FRAN Administration Heparin Sodium (Porcine) 3,900 unit 09/14/24 05:23 09/15/24 10:36 Heparin Sod Inj 1000 Unit/Ml Vial 10 Ml INDWELLCAT 09/28/24 05:22 3,900 unit PRN PRN Administration DIALYSIS Heparin Sodium (Porcine) 5,000 unit 09/14/24 22:00 09/17/24 05:26 Heparin Sod Inj 5000 Unit/Ml Vial SC 09/28/24 21:59 5,000 unit TID FRAN Administration Hydralazine HCl 10 mg 09/15/24 21:14 Hydralazine Inj 20 Mg/Ml Vial IV 10/15/24 21:14 Q6H PRN sbp>180 Albumin Human 25 gm in 100 mls @ 100 mls/min 09/14/24 01:17 09/17/24 08:32 Albuminar-25 Ivpb IV 100 mls/min PRN PRN Administration DIALYSIS Lidocaine 1 patch 09/14/24 21:18 09/17/24 09:05 Lidocaine 5% 1 Patch TOP 10/14/24 21:29 1 patch DAILY PRN Administration PAIN SCALE 4-6 (Moderate Ondansetron HCl 4 mg 09/13/24 22:20 09/16/24 12:03 Ondansetron Inj 2 Mg/Ml Inj 2 Ml IV 10/13/24 22:19 4 mg Q6H PRN Administration NAUSEA OR VOMITING Protocol Ropinirole HCl 2 mg 09/15/24 09:00 09/17/24 09:04 Ropinirole Hcl 1 Mg Tablet PO 10/15/24 08:59 2 mg BID FRAN Administration Sennosides 1 tab 09/14/24 09:00 09/17/24 09:04 Senna Tablet PO 10/14/24 08:59 1 tab QDAY FRAN Administration Protocol Plan This is a well-known to me 73-year-old male from prior hospital admissions and follows up in my office with past medical history of intermittent high degree AV block including complete AV block but with good ventricular escape rhythm last admissions including March 2024, ESRD with failed right AV fistula and has left tunneled dialysis catheter on left subclavian vein (HD //), hypertension, IDDM, hyperlipidemia, diabetic nephropathy and retinopathy, GERD, restless leg syndrome, and 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 1. Symtpomatic severe bradycardia 2. Intermittent high degree AV block Mobitz type II as well as complete heart block 3. Ground-level fall 4. Dizziness ?Patient has been admitted to the hospital multiple times in the past few months with the most recent being on 08/29/2024 due to bradycardia during dialysis ?On last admission patient was also severely bradycardic, but at this time he had good rescue rate rhythm as well as chronotropic response. ? During this admission patient states that he stood up from his bed to go to the frie and had a dizzy spell which led to him having a ground-level fall. Patient on admission was hyperkalemic which could have contributed to patient's bradycardia. ? Patient was placed on dopamine drip overnight and has maintained heart rate in the 90s and blood pressure stable at this time. ? Given patient has significant scar tissue in the right upper side chest and a tunneled dialysis catheter on the left subclavian vein we do not have good access for pacemaker. ? 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 09/17/2024 Patient's lowest heart rate documented was 38 overnight and continues to have increased use of pacer pads. Plan: ?Recommend to transfer patient to [facility] for placement of leadless pacemaker Micra -Dr. Orantes spoke to Dr.Gurjit Agapito Fernandez-nerve specialist at [facility] who accepted the patient and is willing to do the Micra leadless pacemaker. Informed the primary and ICU team to continue the patient on the dopamine drip for now continue to have external pacer pads on place and contact the ICU team at [facility] for transfer and then consult nerve specialist there. ?Recommend to continue external pacemaker ?Avoid any rate controlling medications such as calcium channel blockers and beta-blockers 4.ESRD on hemodialysis Saturday, , Saturday (failed right AV fistula, has left tunneled dialysis cath) 5. Hyperkalemia ?Patient's potassium was 5.6, creatinine 4.8, and BUN 35 on admission ?Received hemodialysis ?Continue management as per primary care team 6. Essential hypertension ?On admission patient had blood pressure of 157/75 ?Currently blood pressure is 108/61 ?Patient seems to be on midodrine 10 mg 4 times daily at home most likely due to dialysis Plan: ?Recommend to keep systolic blood pressure around 140-150 ?Recommend IV hydralazine as needed for systolic blood pressure above 180 7. Hypothyroidism ?TSH 6.72 and free T4 0.96 on admission ?Recommend follow-up outpatient with facility specialist ?Continue management as per primary care team 8. DM2 9. Diabetic neuropathy 10. Diabetic nephropathy ?Patient is legally blind from the right eye and left eye he mostly sees shadows ?Patient has end-stage renal disease likely due to diabetic nephropathy ?Continue management as per primary care team 11. Hyperlipidemia ?Labs on 08/30/2024 showed triglycerides 123, cholesterol 123, LDL 49, HDL 49 ?Continue management as per primary care team 12. GERD ?Patient is on pantoprazole 40 mg daily at home ?Recommend to continue during hospital stay 13. Restless leg syndrome ?Patient is on ropinirole 2 mg twice daily at home ? Recommend to continue during hospital stay Continue rest of management as per primary team. We are grateful to be able to participate in Mr. Shah's care. Thank you for the consult Plan of care discussed with attending Maintenance Of Way Clerk, Dr Rolanda Rojas MD PGY-1 Attending Provider Attestation/Addendum I have personally seen and examined the patient separately on the above date of service and discussed the plan of care with the resident. I reviewed the resident Dr. Iverson consultation progress note and agree with the resident findings and plan in the note above and have also edited the documentation to reflect my findings and plan. Fuad Orantes M.D. Interventional Cardiology
[2024-09-17] MEDS: HEPARIN SOD INJ 1000 UNIT/ML VIAL 10 ML 3900 UNIT INDWELLCAT (11:07)
--- NOTE | 2024-09-17 13:36 | PD.RESPRO ---
Documentation for date of: 09/17/24 Subjective Subjective Interval history: Mr Shah is 74-year-old male with past medical history of ESRD on HD () secondary to diabetic nephropathy, bradycardia, insulin-dependent type 2 diabetes, hyperlipidemia, hypertension presenting to the ED on 09/13 with episode of severe dizziness followed by a fall. Patient states that the sensation lasted for one-two seconds where he felt the entire room spinning and lost balance and fell backwards. He fell infront of his who apparently saw the entire episode as it happened. Patient denies any concerning cardiac symptoms during this episode; denies any chest pain/tightness, shortness of breath, palpitations, lower extremity edema, orthopnea or PND. His last dialysis session was Satuday 09/12 and there were no acute complications post dialysis. Of note, patient was admitted in the past for bradycardia but at that time was not a candidate for PM placement secondary to anterior chest wall scarring due to previous dialysis catheter insertions. Patient was told to follow-up with Director Of Conservation, Dr. Orantes, who saw the patient on 09/08 in the clinic and told him to follow-up sometime in October. Of note, cardiology recommended leadless Micra pacemaker for the patient if he ever became symptomatic. Patient reported to be having a difficult time and has been grieving the loss of her daughter who passed on 09/02 secondary to a motor vehicle accident. In the ED, patient presented hypertensive (127/75), heart rate initially 69 but went as low as 30-35, respiratory rate 19, afebrile saturating 99 on room air. Pertinent lab findings included hemoglobin 11.7, MCV 94, platelet 160, sodium 134, potassium 5.6, BUN 35, creatinine 4.8, magnesium 2.3, troponin within normal, BNP 528, free T40.96. Cervical, head, lumbar, thoracic CT were negative for any acute processes; EKG did show signs of complete heart block. Home Medications: Diphenoxylate?atropine, gabapentin, Januvia, lactulose, midodrine, montelukast, boost glucose control, on incentive, ropinirole, sevelamer, Velphoro, Nephro-Chanell multivitamin Patient admitted for management of symptomatic bradycardia; software security consultant, Dr. Orantes, was made aware of the patient's status and will most likely consider placement of leadless pacemaker. Patient will be admitted to ICU secondary to requiring transcutaneous pacing and IV dopamine for a 5-second sinus pause which occurred in the ED. 09/14/2024: Patient seen at bedside, currently in ICU, on admission potassium was 5.6, increased to 5.9 was treated with hyperkalemia protocol, no improvement received hemodialysis treatment in a.m. 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 09/15/2024: Patient seen in ICU today, and is scheduled for dialysis treatment today, monitor as he had 3 hours worth of dialysis with ultrafiltration goal of 100, labs reviewed this morning sodium 133, potassium 5, chloride 97 BUN 36, creatinine 4.6, overnight patient's heart rate was sinus, has no current complaints, patient is anxious to be transferred for pacemaker placement. Patient was accepted by [facility] in [place], pending bed. Will continue his dialysis treatment today and monitor the patient. 09/16/2024: Patient seen in ICU today, status post dialysis treatment yesterday, continues to have episodes of bradycardia, off dopamine drip currently, denies any complaints and concerns currently. Labs reviewed, patient is pending transfer for pacemaker placement. 09/17/2024: Patient seen in ICU today, scheduled for dialysis treatment, complains of lower back pain, started on Flexeril twice daily as needed, labs reviewed, dialysis goal today is to remove 1.5 L of fluid. Patient is pending transfer for pacemaker placement. Exam Vital Signs Temp Pulse Resp BP Pulse Ox O2 Del Method O2 Flow Rate 96.8 F 66 16 132/63 H 99 Room Air 2 09/17/24 11:22 09/17/24 11:22 09/17/24 11:22 09/17/24 11:22 09/17/24 11:22 09/17/24 00:00 09/14/24 05:15 Narrative Exam General: Alert and oriented x3. In no acute distress. Eyes: Legally blind right eye and mostly sees shadows with left eye HEENT: Atraumatic, normocephalic. No JVD noted. Mucosa moist. Cardiovascular: Normal S1 and S2. Normal rate and regular rhythm. Respiratory: No respiratory distress. Lungs are clear to auscultation bilaterally but decreased at the bases. No wheezing or crackles heard. Abdomen: Soft, nontender, nondistended. Skin: No rash. Warm to touch. Scars on the right side chest from previous tunneled dialysis catheter placement, left chest tunneled dialysis catheter in place, right failed AV fistula scar noted Musculoskeletal: No gross injuries. Able to move all 4 extremities. Neuro: Alert and oriented x3. No focal neuro deficits. Psych: Normal affect and mood Objective Labs 09/17/24 05:23 09/17/24 05:23 Labs: Laboratory Results - last 24 hr 09/17/24 05:23 WBC 5.2 RBC 3.62 L Hgb 10.9 L Hct 33.7 L MCV 93 MCH 30.1 MCHC 32.3 RDW Std Deviation 51.7 H Plt Count 162 D Neut % (Auto) 43 Lymph % (Auto) 40 Jennings % (Auto) 11 Eos % (Auto) 5 Baso % (Auto) 1 Neut # (Auto) 2.2 Lymph # (Auto) 2.1 Jennings # (Auto) 0.6 Eos # (Auto) 0.3 Baso # (Auto) 0.0 Immature Gran # (Auto) 0.02 H Absolute Nucleated RBC 0.00 Immature Gran % 0 Nucleated RBC % 0 Sodium 134 L Potassium 4.7 Chloride 98 Carbon Dioxide 25.7 Anion Gap 10 BUN 30 H Creatinine 4.6 H* D Estim Creat Clear Calc 11.6 L eGFR 13 L* BUN/Creatinine Ratio 7 L Glucose 118 H D Calculated Osmolality 275 Calcium 9.6 Corrected Calcium 9.6 Phosphorus 5.5 H Magnesium 2.3 Total Bilirubin 0.4 AST 15 ALT 17 Alkaline Phosphatase 151 H Total Protein 7.6 Albumin 4.0 Globulin 3.6 H Albumin/Globulin Ratio 1.1 L Quality Measures Quality Measures VTE prophylaxis Advance care planning discussed with:: patient Assessment & Plan Assessment Current Active Medications: Generic Name Dose Route Start Last Admin Trade Name Freq PRN Reason Stop Dose Admin Acetaminophen 650 mg 09/14/24 14:20 09/16/24 20:36 Acetaminophen 325 Mg Tablet PO 10/14/24 14:19 650 mg Q6HR PRN Administration Fever >101 or pain 1-3 Atropine Sulfate 0.5 mg 09/16/24 06:37 Atropine Sulf Inj 0.1 Mg/Ml Syr 10 Ml IVP 10/13/24 22:22 PRN PRN symptomatic bradycardia; HR<30 Cyclobenzaprine HCl 5 mg 09/17/24 08:36 09/17/24 08:56 Cyclobenzaprine 5 Mg Tablet PO 10/17/24 08:35 5 mg BID PRN Administration MUSCLE SPASMS Gabapentin 100 mg 09/14/24 18:35 09/17/24 09:04 Gabapentin 100 Mg Capsule PO 10/14/24 18:34 100 mg BID FRAN Administration Heparin Sodium (Porcine) 3,900 unit 09/14/24 05:23 09/17/24 11:07 Heparin Sod Inj 1000 Unit/Ml Vial 10 Ml INDWELLCAT 09/28/24 05:22 3,900 unit PRN PRN Administration DIALYSIS Heparin Sodium (Porcine) 5,000 unit 09/14/24 22:00 09/17/24 05:26 Heparin Sod Inj 5000 Unit/Ml Vial SC 09/28/24 21:59 5,000 unit TID FRAN Administration Hydralazine HCl 10 mg 09/15/24 21:14 Hydralazine Inj 20 Mg/Ml Vial IV 10/15/24 21:14 Q6H PRN sbp>180 Albumin Human 25 gm in 100 mls @ 100 mls/min 09/14/24 01:17 09/17/24 08:32 Albuminar-25 Ivpb IV 100 mls/min PRN PRN Administration DIALYSIS Lidocaine 1 patch 09/14/24 21:18 09/17/24 09:05 Lidocaine 5% 1 Patch TOP 10/14/24 21:29 1 patch DAILY PRN Administration PAIN SCALE 4-6 (Moderate Ondansetron HCl 4 mg 09/13/24 22:20 09/16/24 12:03 Ondansetron Inj 2 Mg/Ml Inj 2 Ml IV 10/13/24 22:19 4 mg Q6H PRN Administration NAUSEA OR VOMITING Protocol Ropinirole HCl 2 mg 09/15/24 09:00 09/17/24 09:04 Ropinirole Hcl 1 Mg Tablet PO 10/15/24 08:59 2 mg BID FRAN Administration Sennosides 1 tab 09/14/24 09:00 09/17/24 09:04 Senna Tablet PO 10/14/24 08:59 1 tab QDAY FRAN Administration Protocol Plan Summary: Mr. Shah is a 74-year-old male ith past medical history of ESRD on HD () secondary to diabetic nephropathy, bradycardia, insulin-dependent type 2 diabetes, hyperlipidemia, hypertension presenting to the ED on 09/13 with episode of severe dizziness followed by a fall. Patient admitted for management of symptomatic bradycardia, nephrology consulted for hyperkalemia and end-stage renal disease. # Hyperkalemia # ESRD on dialysis () On admission patient's potassium 5.6, increased to 5.9, was given treatment per hyperkalemia protocol, no improvement in potassium level Received partial hemodialysis treatment for 2.5 hours, 0.65 L removed on admission. Potassium level this morning 4.7 Patient established outpatient for hemodialysis on Saturday and Saturday, did report receiving dialysis treatment on Saturday before admission. Scheduled for hemodialysis treatment today, goal to remove 1.5 L fluid today. Plan: -Will continue with inpatient dialysis, scheduled dialysis today, goal to remove 1.5 L. -Potassium in morning was 4.7, will continue to monitor -Patient pending transfer to [facility] for pacemaker placement #Symptomatic Bradycardia #Complete Heart Block, less likely 2nd Degree AV Block, Mobitz type II #Sinus Pause #Hypertension #Hyperlipidemia #ESRD on HD () #Diabetic Nephropathy #Hyperkalemia, resolved #Insulin-dependent Type 2 Diabetes Mellitus #Restless Leg Syndrome #Anemia of Chronic Disease -Management per ICU team, cardiology consulted. Case discussed with Attending Dr. Chand. Minoo Altman PGY1 Attending Provider Attestation/Addendum patient seen and examined with resident physician Dr. Altman. Note reviewed, agree with findings and recommendations. Patient currently seen in ICU. Patient currently seen on dialysis. Tolerating dialysis without any problems. Hemodialysis for 3 hours, 2K, ultrafiltration 1 L, Epogen 6000, no heparin ordered. Plan of care discussed with the dialysis nurse. Please see dialysis flowsheet for further details. Having breakfast. Heart rate in the 70s. Pending transfer for pacemaker.
--- NOTE | 2024-09-17 14:31 | ESPR_ITS ---
<Statement entered by Elan Yuan MD - 09/18/24 13:44> TOTAL TIME: 45MINUTES ON DIRECT MEDICAL CARE, MANAGEMENT - COORDINATION AND COUNSELING > 50% OF TOTAL TIME I saw and evaluated the patient. I reviewed the resident?s note and agree with findings and plan as documented in the resident?s note. Documentation for date of: 09/17/24 Subjective Subjective Interval history: Mr Shah is a 74-year-old male with past medical history of ESRD on HD () secondary to diabetic nephropathy, bradycardia, insulin-dependent type 2 diabetes, hyperlipidemia, hypertension presenting to the ED on 09/13 with episode of severe dizziness followed by a fall. Patient has had multiple admissions for bradycardia, but patient seems to improve after hospitalization with heart rate in 70s and patient has been getting discharged. Patient follows up with Dr. Chand for dialysis needs; last session was Satuday 09/12 and there were no acute complications post dialysis. Of note, patient was admitted in the past for bradycardia but at that time was not a candidate for PM placement secondary to anterior chest wall scarring due to previous dialysis catheter insertions. Patient was told to follow-up with Polymer Specialist, Dr. Orantes, who saw the patient on 09/08 in the clinic and told him to follow-up sometime in October. Of note, cardiology recommended leadless Micra pacemaker for the patient if he ever became symptomatic. Patient has been having a difficult time and has been grieving the loss of her daughter who passed on 09/02 secondary to a motor vehicle accident. 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 However, due to unavailability of beds, patient transfer was unsuccessful. Once the bed will be available, patient will be transferred. 09/15/2024: The patient was interviewed and examined at the bedside this morning. He complained of mild superficial left-sided chest pain, and that was precipitated by pressure over left chest wall. Overnight, he did not had any episodes of bradycardia. Dopamine drip was discontinued. However, this morning the patient was having multiple shock delivered by temporary pacemaker, and back of pacemaker was turned down to 36/min. He received another session of hemodialysis this morning. CBC at baseline, CMP significant for ESRD. The patient will be transferred to [facility] [place]. 09/16/2024: The patient was interviewed and examined at the bedside this morning. He reported doing better. He reported improvement in his superficial chest pain, but complained of mild nausea. Overnight, he did not had any episode of bradycardia. His electrolytes has been stable. he is labs are significant for ESRD. He is still awaiting for bed at [facility] [place]. 09/17/2024: The patient was interviewed and examined at the bedside this morning. He reported doing well. Overnight, he did not had any event of passing by external pacemaker, but during hemodialysis this morning he was being assisted by external pacer. The intensity of pacer voltage was increased to 10 agnieszka- ampere, and backup pacer rate was increased to 46. The patient is awaiting for ICU bed at [facility] [place]. Exam Vital Signs Temp Pulse Resp BP Pulse Ox O2 Del Method O2 Flow Rate 96.8 F 66 16 132/63 H 99 Room Air 2 09/17/24 11:22 09/17/24 11:22 09/17/24 11:22 09/17/24 11:22 09/17/24 11:22 09/17/24 00:00 09/14/24 05:15 Narrative Exam General: No acute distress, Alert and Oriented HEENT: Moist mucous membranes, oropharynx clear Neck: Supple, No masses, No JVD CVS: HR in 40's - 50's that improved to 60's after pacemaker settings were changed, No murmurs, rubs or gallops, tender to touch on left chest Lungs: Clear to auscultation with no accessory use, no wheeze no rhonchi Abd: Soft, NT/ND, +BS, no organomegaly Ext: No edema, warm and well perfused Skin: No rash Psych: Appropriate mood and affect Objective Labs 09/17/24 05:23 09/17/24 05:23 Labs: Laboratory Results - last 24 hr 09/17/24 05:23 WBC 5.2 RBC 3.62 L Hgb 10.9 L Hct 33.7 L MCV 93 MCH 30.1 MCHC 32.3 RDW Std Deviation 51.7 H Plt Count 162 D Neut % (Auto) 43 Lymph % (Auto) 40 [place] % (Auto) 11 Eos % (Auto) 5 Baso % (Auto) 1 Neut # (Auto) 2.2 Lymph # (Auto) 2.1 [place] # (Auto) 0.6 Eos # (Auto) 0.3 Baso # (Auto) 0.0 Immature Gran # (Auto) 0.02 H Absolute Nucleated RBC 0.00 Immature Gran % 0 Nucleated RBC % 0 Sodium 134 L Potassium 4.7 Chloride 98 Carbon Dioxide 25.7 Anion Gap 10 BUN 30 H Creatinine 4.6 H* D Estim Creat Clear Calc 11.6 L eGFR 13 L* BUN/Creatinine Ratio 7 L Glucose 118 H D Calculated Osmolality 275 Calcium 9.6 Corrected Calcium 9.6 Phosphorus 5.5 H Magnesium 2.3 Total Bilirubin 0.4 AST 15 ALT 17 Alkaline Phosphatase 151 H Total Protein 7.6 Albumin 4.0 Globulin 3.6 H Albumin/Globulin Ratio 1.1 L Quality Measures Quality Measures VTE prophylaxis Advance care planning discussed with:: patient Assessment & Plan Assessment Current Active Medications: Generic Name Dose Route Start Last Admin Trade Name Freq PRN Reason Stop Dose Admin Acetaminophen 650 mg 09/14/24 14:20 09/16/24 20:36 Acetaminophen 325 Mg Tablet PO 10/14/24 14:19 650 mg Q6HR PRN Administration Fever >101 or pain 1-3 Atropine Sulfate 0.5 mg 09/16/24 06:37 Atropine Sulf Inj 0.1 Mg/Ml Syr 10 Ml IVP 10/13/24 22:22 PRN PRN symptomatic bradycardia; HR<30 Cyclobenzaprine HCl 5 mg 09/17/24 08:36 09/17/24 08:56 Cyclobenzaprine 5 Mg Tablet PO 10/17/24 08:35 5 mg BID PRN Administration MUSCLE SPASMS Gabapentin 100 mg 09/14/24 18:35 09/17/24 09:04 Gabapentin 100 Mg Capsule PO 10/14/24 18:34 100 mg BID FRAN Administration Heparin Sodium (Porcine) 3,900 unit 09/14/24 05:23 09/17/24 11:07 Heparin Sod Inj 1000 Unit/Ml Vial 10 Ml INDWELLCAT 09/28/24 05:22 3,900 unit PRN PRN Administration DIALYSIS Heparin Sodium (Porcine) 5,000 unit 09/14/24 22:00 09/17/24 05:26 Heparin Sod Inj 5000 Unit/Ml Vial SC 09/28/24 21:59 5,000 unit TID FRAN Administration Hydralazine HCl 10 mg 09/15/24 21:14 Hydralazine Inj 20 Mg/Ml Vial IV 10/15/24 21:14 Q6H PRN sbp>180 Albumin Human 25 gm in 100 mls @ 100 mls/min 09/14/24 01:17 09/17/24 08:32 Albuminar-25 Ivpb IV 100 mls/min PRN PRN Administration DIALYSIS Lidocaine 1 patch 09/14/24 21:18 09/17/24 09:05 Lidocaine 5% 1 Patch TOP 10/14/24 21:29 1 patch DAILY PRN Administration PAIN SCALE 4-6 (Moderate Ondansetron HCl 4 mg 09/13/24 22:20 09/16/24 12:03 Ondansetron Inj 2 Mg/Ml Inj 2 Ml IV 10/13/24 22:19 4 mg Q6H PRN Administration NAUSEA OR VOMITING Protocol Ropinirole HCl 2 mg 09/15/24 09:00 09/17/24 09:04 Ropinirole Hcl 1 Mg Tablet PO 10/15/24 08:59 2 mg BID FRAN Administration Sennosides 1 tab 09/14/24 09:00 09/17/24 09:04 Senna Tablet PO 10/14/24 08:59 1 tab QDAY FRAN Administration Protocol Plan 74-year-old male with past medical history of ESRD on HD (/) secondary to diabetic nephropathy, bradycardia, insulin-dependent type 2 diabetes, hyperlipidemia, hypertension presenting to the ED on 09/13 with episode of severe dizziness followed by a fall will be admitted for observation and management of symptomatic bradycardia; cardiology, Dr. Orantes, is aware of the patient's status and will most likely consider placement of leadless pacemaker. 09/17/2024: The patient was interviewed and examined at the bedside this morning. He reported doing well. Overnight, he did not had any event of passing by external pacemaker, but during hemodialysis this morning he was being assisted by external pacer. The intensity of pacer voltage was increased to 10 agnieszka- ampere, and backup pacer rate was increased to 46. The patient is awaiting for ICU bed at [facility] [place]. Neuro no acute process CVS #Symptomatic Bradycardia 2/2 #Complete Heart Block #Sinus Pause, resolved Likely 2/2 to electrolyte abnormalities and ESRD status Presenting with episode of dizziness and falling backwards; denies concerning cardiac symptoms as noted in HPI Recent echo from March 2024 was reviewed and it showed normal LV function, normal RV function. Mild aortic valve sclerosis without stenosis In the ED, patient's HR initially fluctuated between 30-40 Patient had episode of sinus pause of 5 seconds while in the process of being admitted Plan: Patient has been awaiting for bed to be available at [facility] [place] Transcutaneous pacing settings were changed to 10mA and backup pacing rate of 46. Dr. Orantes, Cardiology, following - will do transvenous pacing if necessary #Hx of Hypertension #Hyperlipidemia Chronic medical problems not pertinent to following admission Patient not on medications for the following conditions -We will hold midodrine given bradycardia Plan: Monitor blood pressure while in the hospital Respiratory No acute process Renal #ESRD on HD (//) #Diabetic Nephropathy Has been on dialysis for 16 years secondary to diabetic nephropathy He follows up with Dr. 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 Chand will follow the patient while admitted Received 3rd session of inpatient HD this morning #Hyperkalemia, resolved Patient presenting with elevated potassium; last dialysis session as noted above In the ED, given 1g of calcium gluconate and IV insulin with dextrose Plan: Follow-up morning labs Endocrine #Insulin-dependent Type 2 Diabetes Mellitus Last A1c of 5.9 08/30 Patient apparently uses insulin as needed; roughly 20u of levemir Plan: SSI discontinued as last A1c a month back was 5.9 and has not been requiring insulin -Monitor BS in am #Diabetic Nephropathy #Restless Leg Syndrome #Elevated TSH Patient is on Gabapentin 100mg po bid and Ropinirole 2mg po bid Patient has elevated TSH on prior admissions but T4 has been wnl Plan: Restarted home medications GI No acute process ID No acute process Heme #Normocytic Anemia #Anemia of Chronic Disease Patient has anemia secondary to ESRD status Past iron panels have shown decreased iron but elevated ferritin Patient's current Hgb within acceptable level for dialysis patient; 11.7 Does not require EPO at this time Plan: Monitor with AM labs Follow-up with nephrology Health Maintainance: Lines - PIV, L-sided vasc cath Bowel - Senna Diet -Cardiac GI prophylaxis - protonix DVT prophylaxis - Heparin SQ Dispo - Symptomatic bradycardia; cardiology consulted - appreciate recommendations, will be transferred to [facility]. Code - Full The patient's management plan was discussed with my attending physician MD Don Mendoza MD, PGY2
--- NOTE | 2024-09-17 15:29 | PC.SS ---
Update: Patient remains ICU level of care, no downgrade. Transfer remains pending.
[2024-09-17] MEDS: ONDANSETRON INJ 2 MG/ML INJ 2 ML 4 MG IV (21:11)
[2024-09-18 00:01] VITALS: BP 144/59; PULSE 54; RESP 4; TEMP 36.3; O2SAT 99
[2024-09-18 00:15] VITALS: BP 156/72; PULSE 50; RESP 23; O2SAT 99
[2024-09-18 00:31] VITALS: BP 156/77; PULSE 43; RESP 20; O2SAT 99
[2024-09-18 00:46] VITALS: BP 158/79; PULSE 46; RESP 14; O2SAT 92
[2024-09-18 01:01] VITALS: BP 138/63; PULSE 59; RESP 14; O2SAT 98
--- NOTE | 2024-09-18 01:26 | PC.NURSE ---
pt accepted to [facility] room [address] Javier Caputo (hospitalist) and Dr Altman (Mergers And Acquisitions Consultant) report given to Rosemarie from [facility] @[phone]. ext [phone] ambulance picked up pt @ 0113 called [facility] icu and informed them of picket labor union time Called Kathleen and informed her pt left and that pt had belongings left in ICU and that she could pick them up in the morning
== END 2024-09-18 01:13 | disposition short-term general hospital (02) | DRG 308 ==
LOC: SERX 21:32 → SERHOLD 22:42 → S2SX 09-14 13:24
PROVIDERS: Internal Medicine Cardiovascular Disease; Registered Nurse General Practice; Student in an Organized Health Care Education/Training Program; Admitting Provider Internal Medicine; Emergency Provider Emergency Medicine; PCP Internal Medicine; Visit Provider Internal Medicine
PROC: B5161ZZ Fluoroscopy of Right Subclavian Vein using Low Osmolar Contrast (ICD-10-PCS; CPT 75600; principal; 2024-09-14 09:00)
DX: I44.2 Atrioventricular block, complete (principal); N18.6 End stage renal disease; I82.B11 Acute embolism and thrombosis of right subclavian vein; R00.1 Bradycardia, unspecified; E87.5 Hyperkalemia; E11.22 Type 2 diabetes mellitus with diabetic chronic kidney disease; E78.5 Hyperlipidemia, unspecified; I35.8 Other nonrheumatic aortic valve disorders; E11.319 Type 2 diabetes mellitus with unspecified diabetic retinopathy without macular edema; E11.40 Type 2 diabetes mellitus with diabetic neuropathy, unspecified; D63.1 Anemia in chronic kidney disease; E03.9 Hypothyroidism, unspecified; G25.81 Restless legs syndrome; H54.61 Unqualified visual loss, right eye, normal vision left eye; I77.1 Stricture of artery; I10 Essential (primary) hypertension; S09.90XA Unspecified injury of head, initial encounter; K21.9 Gastro-esophageal reflux disease without esophagitis; Z87.891 Personal history of nicotine dependence; Z99.2 Dependence on renal dialysis; Z89.422 Acquired absence of other left toe(s); Z79.84 Long term (current) use of oral hypoglycemic drugs; Z79.899 Other long term (current) drug therapy; Z79.4 Long term (current) use of insulin; Z79.85 Long-term (current) use of injectable non-insulin antidiabetic drugs; Z79.02 Long term (current) use of antithrombotics/antiplatelets; W19.XXXA Unspecified fall, initial encounter; Y92.009 Unspecified place in unspecified non-institutional (private) residence as the place of occurrence of the external cause
CPT/HCPCS: 36415; 70450; 72125; 72128; 72131; 75820; 80053; 80069; 80074; 80307; 81001; 83615; 83735; 83880; 84100; 84132; 84439; 84443; 84484; 85025; 85610; 85730; 86706; 86850; 86900; 86901; 87081; 93005; 96365; 96366; 96374; 96375; 96376; 99285; J0171; J0461; J0612; J1265; J1643; J1815; J2060; J2310; J2371; J2405; J2765; J3490; P9047; Q9967; A9270; J1644

== ENCOUNTER 2024-12-10 21:05 | Emergency (ER) | payer MEDICARE, MEDICAID, SELFPAY ==
[2024-12-10 21:35] VITALS: BP 139/78; PULSE 78; RESP 18; TEMP 36.3; O2SAT 100; BMI 20.9
[2024-12-10 21:36] VITALS: PULSE 77; RESP 20
[2024-12-10 21:40] VITALS: BP 150/93; PULSE 65; RESP 18; O2SAT 98
--- NOTE | 2024-12-10 21:45 | PC.NURSE ---
pressure dressing placed over dialysis catheter at this time; awaiting MD evaluation.
--- NOTE | 2024-12-10 23:26 | PD.EDWOUND ---
ED Wound/Laceration-RME/HPI General Chief Complaint: Wound/Laceration Stated Complaint: FISTULA BLEED Arrival date/time: 12/10/24 21:05 Limitations: no limitations RME / HPI RME / HPI narrative: Dr. 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 Patient states he started having bleeding to his dialysis catheter after he was dialyzed today. He denies any N/V, dizziness, lightheadedness or any other associated symptoms. Related Data Home Medications ?Medication ?Instructions ?Recorded ?Confirmed midodrine 10 mg tablet 10 mg PO QID ##180 10/30/17 09/14/24 gabapentin 100 mg capsule 100 mg PO BID 08/06/19 09/14/24 sevelamer carbonate 800 mg tablet 1,600 mg PO TID 02/24/20 09/14/24 (Renvela) ondansetron HCl 4 mg tablet 4 mg PO BID PRN Nausea 01/17/21 09/13/24 ropinirole 1 mg tablet 2 mg PO BID 01/17/21 09/14/24 montelukast 10 mg tablet 10 mg PO DAILY 04/05/24 09/14/24 sitagliptin phosphate 50 mg tablet 50 mg PO DAILY 04/05/24 09/14/24 (Januvia) diphenoxylate-atropine 2.5 1 tab PO 2XD 09/13/24 09/14/24 mg-0.025 mg tablet lactulose 10 gram/15 mL oral 15 ml PO 1XD 09/13/24 09/13/24 solution (Constulose) nutrition tx glu 1 ea PO 3XD 09/13/24 09/13/24 intol,lac-free,soy-fiber 0.07 gram-0.8 kcal/mL liquid (Boost Glucose Control) sucroferric oxyhydroxide 500 mg 500 mg PO 1XD 09/13/24 09/13/24 chewable tablet (Velphoro) vitamin B complex-vitamin C-folic 1 tab PO 1XD 09/13/24 09/14/24 acid 0.8 mg tablet (Nephro-Chanell) Allergies Allergy/AdvReac Type Severity Reaction Status Date / Time diphenhydramine Allergy Mild ANXIETY Verified 08/29/24 09:13 Review of Systems Review of Systems Systems Reviewed: All systems reviewed, normal except as documented ED Exam General Limitations: Present no limitations General appearance: Present alert and in no apparent distress Head Head exam: Present atraumatic Eye Eye exam: Present normal appearance, PERRL and EOMI ENT ENT exam: Present normal exam, normal oropharynx and mucous membranes moist Neck Neck exam: Present normal inspection, full ROM and trachea midline Chest Chest inspection: Present symmetric chest wall rise and other (catheter to the left chest wall that is still sutured in place, bleeding is controlled); Absent tenderness Respiratory Respiratory exam: Present normal lung sounds bilaterally Cardiovascular Cardiovascular exam: Present regular rate, normal rhythm and normal heart sounds Abdominal Exam Abdominal exam: Present soft and normal bowel sounds Extremities Exam Extremities exam: Present normal inspection and full ROM Back Exam Back exam: Present normal inspection and full ROM Neurological Exam Neurological exam: Present alert, oriented X3 and CN II-XII intact Psychiatric Psychiatric exam: Present normal affect and normal mood Skin Skin exam: Present warm, dry, intact and normal color Course Quality Measures none Orders Category Date Time Status Gelatin Sponge 100 [Gelfoam Sponge 100] Med 12/10/24 23:14 Discontinued 1 each TOP X1 ONE Vital Signs Vital signs: Vital Signs Temperature 97.4 F 12/10/24 21:35 Pulse Rate 78 12/10/24 21:35 Respiratory Rate 18 12/10/24 21:35 Blood Pressure 139/78 H 12/10/24 21:35 Pulse Oximetry (%) 100 12/10/24 21:35 Oxygen Delivery Method Room Air 12/10/24 21:35 Wound / Laceration Patient data External records reviewed:: [facility] previous records (Per chart review, patient was admitted here on 09/13/24 for symptomatic bradycardia.) Clinical information provided by:: patient Social determinants that could affect healthcare access:: none Patient has the following chronic illnesses:: ESRD on HD (T//) secondary to diabetic nephropathy, bradycardia, insulin-dependent type 2 diabetes, hyperlipidemia, hypertension How is presenting disease/condition affected by chronic disease/condition?: uneffected by Evaluation data The following diagnostics were reviewed and interpreted by me:: other (specify) (none) Lab and/or radiology exams considered but not ordered:: none Interpretation Summary: none Medications / Prescriptions Medications or Prescriptions considered but not ordered:: none Medication administrations:: Medication Administration History Discontinued Medications Gelatin (Gelatin Sponge 100 1 Each Sponge) 1 each TOP X1 ONE Stop: 12/10/24 23:15 Last Admin: 12/11/24 00:01 Dose: Not Given Documented By: KG Non-Admin Reason: Discontinued see above Consultations Consultation(s) initiated? (list below): No Diagnosis Wound Differential Diagnosis: other (postop bleeding, infection, catheter malfunction) Most likely diagnosis given after review of the tests above:: see clinical impression below Admission Indicated Admission indicated?: not indicated Explain why admission is indicated or not indicated:: Patient was observed here for a few hours without any further complications. Patient is stable to be discharged home. Admission Request Was there a request for admission?: No Disposition Plan Disposition Plan: Discharge Discharge Attestation Discharge Attestation: The patient and all family members were given an opportunity to ask questions and understood the discharge instructions. Discharge instructions specifically effects, indications for sooner follow up or return to the emergency department, and the expected course of current diagnosis. Patient condition: Stable Discharge Plan Plan Patient Disposition: HOME (Self Care) Patient condition on transfer: Stable Prescriptions/Referrals Prescriptions/Med Rec: No Action midodrine 10 mg Tablet 10 mg PO QID Qty: 180 ropinirole 1 mg Tablet 2 mg PO BID ondansetron HCl 4 mg Tablet 4 mg PO BID PRN (Reason: Nausea) gabapentin 100 mg capsule 100 mg PO BID Patient Comments: take 1 capsule by mouth twice a day sevelamer carbonate [Renvela] 800 mg Tablet 1,600 mg PO TID montelukast 10 mg tablet 10 mg PO DAILY Patient Comments: take 1 tablet by mouth once daily Januvia 50 mg tablet 50 mg PO DAILY Patient Comments: take 1 tablet by mouth once daily diphenoxylate-atropine 2.5-0.025 mg tablet 1 tab PO 2XD Patient Comments: take 1 tablet by mouth twice a day if needed for diarrhea Nephro-Chanell 0.8 mg tablet 1 tab PO 1XD Patient Comments: take 1 tablet by mouth once daily lactulose [Constulose] 10 gram/15 mL solution 15 ml PO 1XD Patient Comments: take 15 MILLILITER by mouth once daily Velphoro 500 mg tablet,chewable 500 mg PO 1XD Patient Comments: take 1 tablet by mouth three times a day Boost Glucose Control 0.07-0.8 gram-kcal/mL liquid 1 ea PO 3XD Referrals: No Primary/Family,Physician [Primary Care Provider] - In 1 week Problem List Clinical Impression: End stage renal disease on dialysis, Post-op bleeding Patient/Caregiver Discharge Instructions Additional Instructions: Today you had some bleeding from the site but it is controlled. Please let your vascular surgeon or whoever put your catheter and know that you are here in emergency department. Please return to emergency department for any worsening symptoms, any other bleeding, or any other concerns. Print Language: Indonesian Stand Alone Forms: Haritha Award Info., Patient Portal Info Letter
[2024-12-11 01:45] VITALS: BP 132/59; PULSE 77; RESP 15; O2SAT 99
[2024-12-11 02:36] VITALS: BP 157/92; PULSE 73; RESP 18; O2SAT 96
== END 2024-12-11 02:37 | disposition home or self-care (01) ==
PROVIDERS: Emergency Provider Emergency Medicine
DX: T82.838A Hemorrhage due to vascular prosthetic devices, implants and grafts, initial encounter (principal); I12.0 Hypertensive chronic kidney disease with stage 5 chronic kidney disease or end stage renal disease; N18.6 End stage renal disease; E78.5 Hyperlipidemia, unspecified; E11.22 Type 2 diabetes mellitus with diabetic chronic kidney disease; Z99.2 Dependence on renal dialysis
CPT/HCPCS: 80053; 85025; 85610; 85730; 86850; 86900; 86901; 99283